=== PATIENT | male | born 1935 | race Caucasian/White ===

== ENCOUNTER 2017-09-03 16:47 | Emergency (ER) | payer MEDICARE, SELFPAY ==
[2017-09-03 16:47] VITALS: BP 112/71; PULSE 60; RESP 16; TEMP 36.5; O2SAT 96; BMI 28.5
--- NOTE | 2017-09-03 17:06 | ED.VISSUMM ---
- ER Visit Summary Date of Service: 09/03/17 Chief Complaint: Concern for low blood pressure History of Present Illness: The patient is a 81 M presenting for blood pressure check. Patient saw his horticultural therapist Dr. Meek yesterday. He was started on lisinopril 10 mg once a day. He had his first dose this morning. Before taking the medication his blood pressure was 169/96. Later in the afternoon patient told his that he was not feeling well. His checked his blood pressure again and it was 106/46. He denies dizziness or syncope. He denies chest pain or shortness of breath. He is feeling improved on arrival. Physical Examination: Vitals are stable. Blood pressure 112/71. patient is afebrile. Alert no acute distress. HEENT exam is unremarkable. Neck is supple. Lungs are clear and equal bilaterally. Heart is regular rate and rhythm. Abdomen is soft nontender nondistended. Extremities are unremarkable. Skin is warm and dry. No focal neurologic deficit. Remainder of exam is unremarkable. Emergency Department Course and Treatment: Patient was observed in the ED. He remained asymptomatic. Discussed with Dr. Meek. He recommends no lisinopril tomorrow, change the dose to 5 mg of lisinopril Thursday and Thursday and call the office on Thursday. He will monitor his blood pressure at home. Patient and family are agreeable with this plan. Disposition: Discharge home Impression: Hypertension This note was generated with [employer] dictation software. It may contain incorrect words, spelling, and punctuation that were not noted in review of the chart prior to signing ED Disposition - Plan for ED Patient: Disposition: Home or Assisted Living Chief Complaint: General Illness Instructions: What Is High Blood Pressure? Prescriptions: Lisinopril [Prinivil] 5 mg PO DAILY #30 tablet Referrals: Carlos Meek MD [STAFF PHYSICIAN] - Tim Yost MD [Primary Care Provider] -
--- NOTE | 2017-09-03 17:09 | ED.DCSUM_ITS ---
- ER Visit Summary Date of Service: 09/03/17 Chief Complaint: Concern for low blood pressure History of Present Illness: The patient is a 81 M presenting for blood pressure check. Patient saw his meat washer Dr. Meek yesterday. He was started on lisinopril 10 mg once a day. He had his first dose this morning. Before taking the medication his blood pressure was 169/96. Later in the afternoon patient told his that he was not feeling well. His checked his blood pressure again and it was 106/46. He denies dizziness or syncope. He denies chest pain or shortness of breath. He is feeling improved on arrival. Physical Examination: Vitals are stable. Blood pressure 112/71. patient is afebrile. Alert no acute distress. HEENT exam is unremarkable. Neck is supple. Lungs are clear and equal bilaterally. Heart is regular rate and rhythm. Abdomen is soft nontender nondistended. Extremities are unremarkable. Skin is warm and dry. No focal neurologic deficit. Remainder of exam is unremarkable. Emergency Department Course and Treatment: Patient was observed in the ED. He remained asymptomatic. Discussed with Dr. Meek. He recommends no lisinopril tomorrow, change the dose to 5 mg of lisinopril Thursday and Thursday and call the office on Thursday. He will monitor his blood pressure at home. Patient and family are agreeable with this plan. Disposition: Discharge home Impression: Hypertension This note was generated with [employer] dictation software. It may contain incorrect words, spelling, and punctuation that were not noted in review of the chart prior to signing ED Disposition - Plan for ED Patient: Disposition: Home or Assisted Living Chief Complaint: General Illness Instructions: What Is High Blood Pressure? Prescriptions: Lisinopril [Prinivil] 5 mg PO DAILY #30 tablet Referrals: Carlos Meek MD [STAFF PHYSICIAN] - Tim Yost MD [Primary Care Provider] -
--- NOTE | 2017-09-03 18:00 | ED.DEP ---
ED Disposition - Plan for ED Patient: Chief Complaint: General Illness Instructions: What Is High Blood Pressure? Prescriptions: Lisinopril [Prinivil] 5 mg PO DAILY #30 tablet Referrals: Tim Yost MD [Primary Care Provider] - Carlos Meek MD [STAFF PHYSICIAN] -
[2017-09-03 18:17] VITALS: BP 123/61; PULSE 47; RESP 16; O2SAT 95
== END 2017-09-03 18:41 | disposition home or self-care (01) ==
PROVIDERS: Emergency Provider Emergency Medicine; Family Provider Internal Medicine; PCP Internal Medicine
DX: I10 Essential (primary) hypertension (principal); Z79.899 Other long term (current) drug therapy
CPT/HCPCS: 99282

== ENCOUNTER 2019-12-21 05:28 | Day surgery (SDC) | payer MEDICARE, OTHER, SELFPAY ==
[2019-12-05 14:19] VITALS: BMI 28.5
[2019-12-21] VITALS (7 sets, daily range): BP systolic 108–128; BP diastolic 64–74; PULSE 58–78; RESP 16; TEMP 36.3–36.5; O2SAT 96–98; BMI 25.2
--- NOTE | 2019-12-21 05:30 | HP.PCM_ITS ---
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 Required: No Is patient in pain?: No Allergies No Known Allergies Allergy (Verified 09/03/17 16:50) Medications Celecoxib [Celebrex] 200 mg PO DAILY 09/03/17 [History Confirmed 12/05/19] Tamsulosin HCl [Flomax] 0.4 mg PO DAILY 09/03/17 [History Confirmed 12/05/19] allopurinol 300 mg tablet 300 mg PO DAILY 12/05/19 [History Confirmed 12/05/19] antiarthritic combination no.2 900 mg tablet mg PO 12/05/19 [History Confirmed 12/05/19] aspirin 81 mg tablet,delayed release 81 mg PO DAILY 12/05/19 [History Confirmed 12/05/19] calcium carbonate 500 mg calcium (1,250 mg) tablet 500 mg PO BID 12/05/19 [History Confirmed 12/05/19] cholecalciferol (vitamin D3) 25 mcg (1,000 unit) capsule 25 mcg PO DAILY 12/05/19 [History Confirmed 12/05/19] ipratropium bromide 42 mcg (0.06 %) nasal spray 2 spray INTRANASAL TID 12/05/19 [History Confirmed 12/05/19] lisinopril 10 mg tablet 20 mg PO DAILY tab 12/05/19 [History Confirmed 12/05/19] multivitamin 1 tab PO DAILY 12/05/19 [History Confirmed 12/05/19] omega-3 fatty acids 1,000 mg capsule 1,000 mg PO DAILY 12/05/19 [History Confirmed 12/05/19] tadalafil 20 mg tablet 20 mg PO DAILY PRN 12/05/19 [History Confirmed 12/05/19] [facility] Medical History (Updated 12/05/19 @ 14:[address] Twin Fragoso MD) History of prostate cancer (Acute) Weight loss (Acute) Diarrhea (Acute) Abdominal pain (Acute) BPH (benign prostatic hyperplasia) (Acute) History of back problems (Acute) History of colon polyps (Acute ~2002) History of prostate cancer (Acute) Hyperlipidemia (Acute) Internal hemorrhoids (Acute) Osteoarthritis (Acute) HTN (hypertension) (Chronic) Surgical History (Updated 12/05/19 @ 14:03 by Beatriz Deleon) History of cholecystectomy (Acute) History of colonoscopy (Acute ~2012) History of hemorrhoidectomy (Acute) History of left inguinal hernia repair (Acute) Family History (Updated 12/05/19 @ 14:04 by Beatriz Deleon) Brother Diabetes Cancer prostate Father Cancer prostate Mother Cancer cervical Sister Cancer ovarian Aunt Colon cancer Social History (Updated 12/05/19 @ 14:[address] Twin Fragoso MD) Smoking Status: Never smoker HPI HPI HPI: Parag ARMAS, is a 84 M who presents to the office today for a variety concerns. Apparently both he and his July 2019 became ill with severe fatigue. She had fever and shortness of breath. He had significant GI distress. He has never quite recovered. He had weight loss from 205 pounds down to 189 pounds. He has had diffuse abdominal pain. Cramping. He has not noticed any bright red blood. Is felt maybe that he was lactose intolerance was asked to stop but he just was tested a week ago and that is not the case. He will have diarrhea alternating sometimes with constipation. He has not noticed any bright red blood per rectum or melena. He has a sister had ovarian cancer and a mother uterine cancer in a grandfather and a father with prostate cancer. He himself also has had prostate cancer for which she had radiation treatment in 2011. He has had a very remote history of colon polyp dating back to 2004. His most recent colonoscopy was May 19, 2007. No acute findings at that time. The patient also complains of intermittent dizziness with movement. He has been evaluated by his primary care physician Dr. Yost in 2018 he had carotid duplex imaging which did not demonstrate hemodynamically significant disease. Laboratory as of November 08, 2019 demonstrates a white blood cell count of 5.8 with a hemoglobin slightly low at 12.6 hematocrit 39 platelet count 191,000. Albumin was 4.4. BUN 28 creatinine 1.09. GFR was greater than 60. He states that his weight loss is stabilized. 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 He denies any current fever he denies any current shortness of breath. He points to the source of his discomfort is sometimes being in the upper abdomen sometimes mid abdomen sometimes lower abdomen. The patient is referred for surgical consultation by Dr. Tim Yost and Sherrell Cerrato CNP and a written copy my surgical consult recommendations will be returned to them HPI HPI HPI: Parag ARMAS, is a 84 M who presents to the office today for ROS General General: Yes weight change; no appetite, fatigue, colon cancer, breast cancer or weakness HEENT HEENT: No difficulty swallowing, eye injury, eye surgery, swollen glands or hoarseness Endo Endocrine: No thyroid disease, diabetes mellitus, thyroid cancer, Hair loss, heat intolerance or cold intolerance Musc Musculoskeletal: Yes back problems and arthritis; no rheumatoid arthritis, gout or joint pain Cardio Cardiovascular: Yes high blood pressure; no murmur, pacemaker, heart disease, atrial fibrillation, heart attack, heart stent, palpitations, shortness of breat with exertion or chest pain Psych Psychiatric: No depression, anxiety or hearing voices Resp Respiratory: No shortness of breath, No sleep apnea, No cough, No COPD, No asthma, No emphysema, No wheezing Gastro Gastrointestinal: Yes abdominal pain, No nausea or vomiting, No diarrhea, No constipation, No blood in stool, No acid reflux, No hemorrhoids, No ulcers, No gallbladder problem, No black,tarry stools Neuro Neurologic: No weakness Exam Const General: cooperative, comfortable, no acute distress Nutritional Appearance: average body habitus Orientation: alert, awake Other: Abdominal exam demonstrates findings consistent with lax her skin consistent with weight loss HENMT Head: normal to inspection Chest Chest palpation & inspection: normal inspection of the chest Resp Effort & Inspection: normal respiratory effort Auscultation: clear to auscultation bilaterally Cardio Rate: regular rate Rhythm: regular rhythm Heart Sounds: no murmurs GI Palpation: soft, no hepatosplenomegaly Auscultation: normal bowel sounds Other: Well-healed left inguinal hernia repair from my previous procedure Skin Other: Lax abdominal skin, no rashes Neuro Cognition: normal cognition Extrem General: no calf tenderness Psych Affect: normal affect Assessment & Plan Problems 1. Generalized abdominal pain R10.84 2. Diarrhea, unspecified type R19.7 3. Weight loss R63.4 4. History of prostate cancer Z85.46 Plan I am unable to decipher potential etiology of the patient's symptom complex as noted above. I am recommending to him a combined esophagogastroduodenoscopy with possible biopsy and colonoscopy possible biopsy or polypectomy as indicated. The patient is well aware of the technique, benefit, risk of alternatives. No guarantees of success been offered. He is age 84. We will have him hold his fish oil and aspirin preprocedure. We will perform outpatient Covid-19 testing. He is aware that he is presenting during a Covid-19 pandemic. He is aware that the [facility] is currently reporting a low local incidence. Because of his age I anticipate performing this with monitored anesthesia care. Were needed biopsies looking for H. pylori or microcytic colitis will be pursued as well. I appreciate the opportunity of assisting with her surgical care Copy: Dr. Tim Yost and Sherrell Cerrato, GEE Fragoso M.D., F.A.C.S. Orders Orders: Colonoscopy Today R19.4 EGD Today Coding Level of Care Code 66359 Diagnoses Generalized abdominal pain R10.84 ??Abdominal location: generalized Diarrhea, unspecified type R19.7 ??Diarrhea type: unspecified type Weight loss R63.4 History of prostate cancer Z85.46 I have re-examined the patient. There are no clinical changes since date of exam. Procedure Criteria Procedure Type: Elective COVID Risk Discussion: The surgeon/proceduralist and patient have discussed in detail the risk of exposure to and/or potential harm posed by the COVID-19 virus with having a surgery/procedure at this time versus the risk of delaying the surgery/procedure. It is not possible to know either the risk of delaying the surgery or procedure or chance of getting an infection with perfect accuracy, but a joint decision was made between the patient and the surgeon/proceduralist to proceed at this time with the scheduled surgery/procedure as indicated on the consent form.
[2019-12-21] MEDS: Lactated Ringers 1,000 ML 75 ML IV (06:15)
--- NOTE | 2019-12-21 06:30 | EGD_PTH ---
PATIENT: CHACE ARMAS LOC: EN U#:[id number] AGE/SX: 84/M ROOM: RE12/21/[address]: Dr. Twin Fragoso MD : 1935 BED: DIS: 12/21/2019 SPEC #: [id number] RECD: 12/21/19 10:40 STATUS: MANUELA JADE #: [id number] DORINDA: 12/21/19 06:[address]: Twin Fragoso DEPT: SURGICAL PATHOLOGY RECD BY: Jignesh Gutiérrez ENTERED: 12/21/19 11:51 SP TYPE: EGD BIOPSY OT DR: Dr. Tim Yost MD Tissues: A - Duodenum, NOS B - Gastric mucous membrane C - Esophageal mucous membrane D - Esophageal mucous membrane E - COLON BIOPSY Procedures: Surgery Specimen Level IV HEADER OPERATION: Colonoscopy, EGD ([facility]) PRE-OP DIAGNOSIS: Abdomen pain; diarrhea, weight loss TISSUE SUBMITTED: A - Duodenum biopsy, B - Antrum biopsy for histo and H. pylori, C - Distal esophagus biopsy, D - Mid esophagus biopsy, E - Random colonic biopsy MICROSCOPIC DIAGNOSIS A. Duodenum, biopsy: A fragment of duodenal mucosa with mild nonspecific chronic inflammation, congestion and hemorrhage. B. Antrum, biopsy: Minimal gastritis and congestion. See microscopic description and comment. C. Distal esophagus, biopsy: Fragments of squamous epithelium with focal mild chronic inflammation and congestion. D. Mid esophagus, biopsy: Fragments of squamous epithelium with focal minimal congestion. E. Colon, random biopsy: Fragments of colonic mucosa with focal hyperplastic polyp changes. SJ:ethel 12/22/19 COMMENT B. The results of immunohistochemistry for Helicobacter pylori will be reported separately ([id number]). MICROSCOPIC DESCRIPTION Slides are reviewed. B. The specimen shows fragments of gastric mucosa with chronic inflammatory cell infiltrates in the lamina propria consisting of lymphocytes and plasma cells, consistent with minimal chronic gastritis. Focal mucosal congestion is also noted. GROSS DESCRIPTION A - Received in fixative is one container labeled with the patient's name and designated duodenum biopsy. The specimen consists of one irregular fragment of light griffin soft tissue that measures 0.3 x 0.3 x 0.1 cm. The specimen is totally submitted in one cassette. B - Received in fixative is one container labeled with the patient's name and designated antrum biopsy. The specimen consists of one irregular fragment of light griffin soft tissue that measures 0.3 x 0.3 x 0.1 cm. The specimen is totally submitted in one cassette. C - Received in fixative is one container labeled with the patient's name and designated distal esophagus biopsy. The specimen consists of multiple irregular fragments of light griffin soft tissue that in aggregate measure 0.7 x 0.7 x 0.1 cm. The specimen is totally submitted in one cassette. D - Received in fixative is one container labeled with the patient's name and designated mid esophagus biopsy. The specimen consists of two irregular fragments of light griffin soft tissue that in aggregate measure 0.4 x 0.2 x 0.1 cm. The specimen is totally submitted in one cassette. E - Received in fixative is one container labeled with the patient's name and designated random colonic biopsy. The specimen consists of multiple irregular fragments of light griffin soft tissue that in aggregate measure 1.8 x 0.6 x 0.1 cm. The specimen is totally submitted in one cassette. / SJ:rg 12/21/19 TC:3 CPT: 80415 x5
--- NOTE | 2019-12-21 06:30 | IMM_PTH ---
PATIENT: CHACE ARMAS LOC: EN U#:[id number] AGE/SX: 84/M ROOM: RE12/21/[address]: Dr. Twin Fragoso MD : 1935 BED: DIS: 12/21/2019 SPEC #: [id number] RECD: 12/21/19 12:25 STATUS: MANUELA REFior #: [id number] DORINDA: 12/21/19 06:[address]: Twin Fragoso DEPT: IMMUNOHISTOCHEMISTRY RECD BY: Kamini Pitt ENTERED: 12/21/19 12:25 SP TYPE: IMMUNO OTHR DR: Dr. Tim Yost MD Tissues: B - Stomach, NOS Procedures: H Pylori (initial) PHYSICIAN & INSTITUTION [place] [id number] SPECIMEN INFORMATION: Tissue Source: B - Antrum biopsy Clinical Info: Abdomen pain, diarrhea, weight loss Specimen Number: [id number] CPT code: 59062 METHODOLOGY: Deparaffinized sections of prefer/formalin-fixed tissue or PAP/DQ stained slides are incubated with monoclonal/polyclonal antibodies/oligonucleotide probes. Localization is made via biotin free immunoperoxidase method. Appropriate controls are performed and reacted as expected. Results on target cell population are indicated in the following table: RESULTS: ANTIBODY / CLONE RESULT Block B H Pylori (polyclonal) negative These tests were developed and their performance characteristics determined by [facility]. They may not have been cleared or approved by the U.S. Food and Drug Administration. The FDA has determined that such clearance or approval is not necessary. INTERPRETATION: B. Antrum biopsy: Negative for Helicobacter pylori organisms. SJ:ethel 12/22/19
--- NOTE | 2019-12-21 07:06 | OP.EGD_ITS ---
Patient Name: Jens Cai Procedure Date: 12/21/2019 6:09 AM Date of : 1935 Age: 84 Procedure: Upper GI endoscopy Indications: Generalized abdominal pain Providers: Twin Fragoso MD Referring MD: Tim Yost Medicines: See the Anesthesia note for documentation of the administered medications Complications: No immediate complications. Procedure: Pre-Anesthesia Assessment: - Prior to the procedure, a History and Physical was performed, and patient medications and allergies were reviewed. The patient's tolerance of previous anesthesia was also reviewed. The risks and benefits of the procedure and the sedation options and risks were discussed with the patient. All questions were answered, and informed consent was obtained. Prior Anticoagulants: The patient has taken no previous anticoagulant or antiplatelet agents. ASA Grade Assessment: II - A patient with mild systemic disease. After reviewing the risks and benefits, the patient was deemed in satisfactory condition to undergo the procedure. After obtaining informed consent, the endoscope was passed under direct vision. Throughout the procedure, the patient's blood pressure, pulse, and oxygen saturations were monitored continuously. The gastroscope was introduced through the mouth, and advanced to the second part of duodenum. The upper GI endoscopy was accomplished without difficulty. The patient tolerated the procedure well. Scope In: 6:31:27 AM Scope Out: 6:37:02 AM Total Procedure Duration Time 0 hours 5 minutes 35 seconds Findings: LA Grade A (one or more mucosal breaks less than 5 mm, not extending between tops of 2 mucosal folds) esophagitis with no bleeding was found 40 cm from the incisors. Biopsies were taken with a cold forceps for histology. The mid esophagus was normal. Biopsies were taken with a cold forceps for histology. A small hiatal hernia was present. Diffuse mildly erythematous mucosa without bleeding was found in the gastric antrum. Biopsies were taken with a cold forceps for histology. Diffuse mildly erythematous mucosa without active bleeding and with no stigmata of bleeding was found in the duodenal bulb. Biopsies were taken with a cold forceps for histology. Impression: - LA Grade A reflux esophagitis. Biopsied. - Normal mid esophagus. Biopsied. - Small hiatal hernia. - Erythematous mucosa in the antrum. Biopsied. - Erythematous duodenopathy. Biopsied. Recommendation: - Discharge patient to home. - Resume previous diet. - Continue present medications. - Use Pepcid (famotidine) 20 mg PO BID. - Telephone my office for pathology results in 1 week. Procedure Code(s): --- Professional --- 19296, Esophagogastroduodenoscopy, flexible, transoral; with biopsy, single or multiple Diagnosis Code(s): --- Professional --- K21.0, Gastro-esophageal reflux disease with esophagitis K44.9, Diaphragmatic hernia without obstruction or gangrene K31.89, Other diseases of stomach and duodenum R10.84, Generalized abdominal pain CPT copyright 2017 [employer]. All rights reserved. The codes documented in this report are preliminary and upon senior accounting manager review may be revised to meet current compliance requirements. Twin Fragoso MD 12/21/2019 7:05:14 AM This report has been signed electronically. Number of Addenda: 0 Note Initiated On: 12/21/2019 6:09 AM
--- NOTE | 2019-12-21 07:06 | OP.CCLET_ITS ---
12/21/2019 Tim Yost [address] [place] [address] Re : Upper GI endoscopy procedure for Jens Cai Dear Dr. Yost This procedure was performed on Saturday, December 21, 2019. My impressions and recommendations are as follows: Impressions : - LA Grade A reflux esophagitis. Biopsied. - Normal mid esophagus. Biopsied. - Small hiatal hernia. - Erythematous mucosa in the antrum. Biopsied. - Erythematous duodenopathy. Biopsied. Recommendations : - Discharge patient to home. - Resume previous diet. - Continue present medications. - Use Pepcid (famotidine) 20 mg PO BID. - Telephone my office for pathology results in 1 week. My findings are described in the full procedure note, which is enclosed. If I can be of further assistance, please feel free to contact me at Doctor phone number(s): Work: . Sincerely, Twin Fragoso MD 12/21/2019 7:05:14 AM This report has been signed electronically.
--- NOTE | 2019-12-21 07:08 | OP.CCLET_ITS ---
12/21/2019 Tim Yost [address] [place] [address] Re : Colonoscopy procedure for Jens Cai Dear Dr. Yost This procedure was performed on Saturday, December 21, 2019. My impressions and recommendations are as follows: Impressions : - Hemorrhoids found on perianal exam. Lax anal tone - Tortuous colon. - The entire examined colon is normal. Biopsied. Recommendations : - Discharge patient to home. - Resume previous diet. - Continue present medications. - Repeat colonoscopy is not recommended due to current age (66 years or older) for screening purposes. - Telephone my office for pathology results in 1 week. My findings are described in the full procedure note, which is enclosed. If I can be of further assistance, please feel free to contact me at Doctor phone number(s): Work: . Sincerely, Twin Fragoso MD 12/21/2019 7:07:45 AM This report has been signed electronically.
--- NOTE | 2019-12-21 07:08 | OP.COLON_ITS ---
Patient Name: Jens Cai Procedure Date: 12/21/2019 6:37 AM Date of : 1935 Age: 84 Procedure: Colonoscopy Indications: Clinically significant diarrhea of unexplained origin Providers: Twin Fragoso MD Referring MD: Tim Yost Medicines: See the Anesthesia note for documentation of the administered medications Patient Profile: Last Colonoscopy: 2007. Complications: No immediate complications. Procedure: Pre-Anesthesia Assessment: - Prior to the procedure, a History and Physical was performed, and patient medications and allergies were reviewed. The patient's tolerance of previous anesthesia was also reviewed. The risks and benefits of the procedure and the sedation options and risks were discussed with the patient. All questions were answered, and informed consent was obtained. Prior Anticoagulants: The patient has taken no previous anticoagulant or antiplatelet agents. ASA Grade Assessment: II - A patient with mild systemic disease. After reviewing the risks and benefits, the patient was deemed in satisfactory condition to undergo the procedure. After I obtained informed consent, the scope was passed under direct vision. Throughout the procedure, the patient's blood pressure, pulse, and oxygen saturations were monitored continuously. The colonoscope was introduced through the anus and advanced to the cecum, identified by appendiceal orifice and ileocecal valve. The colonoscopy was performed without difficulty. The patient tolerated the procedure well. The quality of the bowel preparation was good. The ileocecal valve and the appendiceal orifice were photographed. Scope In: 6:39:20 AM Scope Withdrawal Time 0 hours 9 minutes 55 seconds Scope Out: 6:56:37 AM Total Procedure Duration Time 0 hours 17 minutes 17 seconds Findings: Hemorrhoids were found on perianal exam. The left colon was moderately tortuous. The colon (entire examined portion) appeared normal. Biopsies for histology were taken with a cold forceps from the entire colon for evaluation of microscopic colitis. Impression: - Hemorrhoids found on perianal exam. Lax anal tone - Tortuous colon. - The entire examined colon is normal. Biopsied. Recommendation: - Discharge patient to home. - Resume previous diet. - Continue present medications. - Repeat colonoscopy is not recommended due to current age (66 years or older) for screening purposes. - Telephone my office for pathology results in 1 week. Procedure Code(s): --- Professional --- 52027, Colonoscopy, flexible; with biopsy, single or multiple Diagnosis Code(s): --- Professional --- K64.9, Unspecified hemorrhoids R19.7, Diarrhea, unspecified Q43.8, Other specified congenital malformations of intestine CPT copyright 2017 [employer]. All rights reserved. The codes documented in this report are preliminary and upon plate keeper review may be revised to meet current compliance requirements. Twin Fragoso MD 12/21/2019 7:07:45 AM This report has been signed electronically. Number of Addenda: 0 Note Initiated On: 12/21/2019 6:37 AM
== END 2019-12-21 07:55 | disposition home or self-care (01) ==
LOC: EN 05:28 → AC 05:28
PROVIDERS: Anesthesiology; PCP Internal Medicine; Referring Provider Internal Medicine; Visit Provider Surgery
PROC: 0DJD8ZZ Inspection of Lower Intestinal Tract, Via Natural or Artificial Opening Endoscopic (ICD-10-PCS; CPT 45378; principal; 2019-12-21 06:25)
DX: K21.0 Gastro-esophageal reflux disease with esophagitis (principal); K44.9 Diaphragmatic hernia without obstruction or gangrene; K64.8 Other hemorrhoids; Z11.59 Encounter for screening for other viral diseases; R63.4 Abnormal weight loss; I10 Essential (primary) hypertension; E78.5 Hyperlipidemia, unspecified; M19.90 Unspecified osteoarthritis, unspecified site; Z79.1 Long term (current) use of non-steroidal anti-inflammatories (NSAID); Z79.82 Long term (current) use of aspirin; Z79.899 Other long term (current) drug therapy; Z87.19 Personal history of other diseases of the digestive system; Z85.46 Personal history of malignant neoplasm of prostate; Z92.3 Personal history of irradiation; Q43.8 Other specified congenital malformations of intestine
CPT/HCPCS: 43239; 45380; 87635; 88305; 88342; 94799; J7120; J2405; U0003

== ENCOUNTER 2020-05-25 11:32 | Outpatient (RCR) | payer MEDICARE, OTHER, SELFPAY ==
[2019-12-21 05:44] VITALS: BMI 25.2
== END 2020-05-25 23:59 ==
LOC: IMMUN 11:32
PROVIDERS: PCP Internal Medicine; Visit Provider Family Medicine
DX: Z23 Encounter for immunization (principal)
CPT/HCPCS: 0011A; 0012A; 91301

== ENCOUNTER → 2021-04-09 14:16 | Outpatient (CLI) | payer MEDICARE, OTHER, SELFPAY ==
--- NOTE | 2021-04-09 14:23 | BI_ITS ---
MAMMOGRAPHY - BILATERAL DIAGNOSTIC REASON FOR EXAM: Male, 85 years old. Left breast mass. Patient has a history of prostate cancer with hormonal treatment. PERTINENT HISTORY: Non-contributory. TECHNIQUE: Digital bilateral breast pam (3D mammographic acquisition) in the CC and MLO projections. 2-D mediolateral oblique (MLO) and craniocaudad (CC) views of both breasts were obtained. CAD: Full Field Digital Mammography with Computer Added Detection was performed. COMPARISON: None. Baseline examination. FINDINGS: Breast Composition: Asymmetrical fibroglandular tissue in the left retroareolar region. There are no dominant masses or suspicious calcifications. No other significant abnormalities are identified. BI/DIAG MAMM W/CAD, BILAT IMPRESSION: Asymmetrical fibroglandular tissue in the left retroareolar region. Correlation with ultrasound is recommended. ASSESSMENT CATEGORY: BIRADS Category 0: Incomplete. Need additional imaging evaluation. A letter regarding these results will be sent to the patient by the facility within 30 days. Approximately 10% of breast cancers are not detected by mammography. A normal mammogram should not delay biopsy of a clinically suspicious abnormality. Electronically Signed: Mckay Winn MD at 8:25 EST , Service support ,
--- NOTE | 2021-04-09 14:23 | US_ITS ---
STUDY: ULTRASOUND BREAST - LEFT REASON FOR EXAM: Male, 85 years old. Palpable lump left breast. TECHNIQUE: Axial and longitudinal images of the LEFT breast were performed with a high resolution ultrasound transducer. # OF IMAGES: 17 COMPARISON: Comparison is made with prior mammogram FINDINGS: LEFT Breast: There is a 1.3 cm x 1.1 cm x 0.4 cm well-defined hypoechoic solid nodule in the retroareolar region of the left breast. This corresponds to the palpable abnormality. A biopsy is recommended. There is increased vascularity in this nodule. US/Breast Limited Unilateral IMPRESSION: The palpable abnormality corresponds to a 1.3 cm x 1.1 cm x 0.4 cm well-defined hypoechoic solid nodule. Increased vascularity is seen. A biopsy is recommended. ASSESSMENT CATEGORY: BIRADS Category 4: Suspicious - Biopsy Should Be Considered. A letter regarding these results will be sent to the patient by the facility within 30 days. Electronically Signed: Mckay Winn MD at 10:09 EST , Service support ,
== END ==
PROVIDERS: PCP Internal Medicine; Visit Provider Internal Medicine
DX: N63.20 Unspecified lump in the left breast, unspecified quadrant (principal); N60.22 Fibroadenosis of left breast
CPT/HCPCS: 76642; 77062; 77066; G0279

== ENCOUNTER → 2021-04-15 | Outpatient (CLI) | payer MEDICARE, OTHER, SELFPAY ==
--- NOTE | 2021-04-15 | BRBX_PTH ---
PATIENT: CHACE ARMAS LOC: [facility] U#:[id number] AGE/SX: 85/M ROOM: RE04/15/[address]: Dr. Twin Fragoso MD : 1935 BED: DIS: 04/15/2021 SPEC #: [id number] RECD: 04/15/21 16:13 STATUS: MANUELA REFior #: [id number] DORINDA: 04/15/21 00:[address]: Twin Fragoso DEPT: SURGICAL PATHOLOGY RECD BY: Ghulam Dougherty ENTERED: 04/16/21 10:20 SP TYPE: BREAST BX OTHR DR: Dr. Tim Yost MD Tissues: Left breast, NOS Procedures: Surgery Specimen Level IV HEADER OPERATION: Left breast biopsy PRE-OP DIAGNOSIS: Left breast mass TISSUE SUBMITTED: Left breast tissue MICROSCOPIC DIAGNOSIS Left breast mass, core biopsy: Consistent with gynecomastia. AM:ethel 04/17/2021 MICROSCOPIC DESCRIPTION Slides are reviewed. GROSS DESCRIPTION Received in fixative is one container labeled with the patient's name and designated left breast. The specimen consists of three cores of light griffin soft tissue. Each core has an average length of 1.5 cm and average diameter of 0.2 cm. The specimen is submitted in its entirety in one cassette. / AM:ethel 04/16/21 TC:5 CPT: 14193
== END | disposition home or self-care (01) ==
LOC: LABSPEC 16:36
PROVIDERS: PCP Internal Medicine; Referring Provider Surgery; Visit Provider Surgery
DX: N63.20 Unspecified lump in the left breast, unspecified quadrant (principal)
CPT/HCPCS: 88305

== ENCOUNTER 2022-11-27 12:14 | Inpatient (IN) | payer MEDICARE, OTHER, SELFPAY ==
[2022-11-27 12:15] VITALS: BP 124/71; PULSE 73; RESP 18; TEMP 36.4; O2SAT 97; BMI 25.9
--- NOTE | 2022-11-27 13:03 | CT_ITS ---
STUDY: CT ABDOMEN AND PELVIS WITH CONTRAST REASON FOR EXAM: Male, 87 years old. Generalized abdominal pain, diarrhea, vomiting RADIATION DOSAGE (If Supplied By Facility): CTDIvol = ( 15.00 ) mGy, DLP = ( 1121.73 ) mGycm TECHNIQUE: Transaxial images were obtained from the dome of the diaphragm to the symphysis pubis without oral contrast. IV 100mL Isovue-300 was administered. Sagittal and coronal images were reconstructed. Individualized dose optimization techniques were used for this CT. COMPARISON: None. FINDINGS: Minimal increased markings at the right lung base suggestive of scarring. Coronary artery calcification. Normal liver. The patient is status post cholecystectomy. Normal spleen. Normal pancreas. Normal bilateral adrenal glands. Normal right kidney. Normal left kidney. There is a small hiatal hernia. Fluid-filled small bowel loops with distention down to the level of the mid ileum. Early small bowel obstruction should be ruled out. Normal colon. The appendix is visualized and appears normal. There is diffuse atherosclerotic calcification of the abdominal aorta, without a demonstrated aneurysm. Normal inferior vena cava. Normal retroperitoneum. Mild degree of diffuse bladder wall thickening. Free fluid is seen in the pelvis. Prostatic enlargement with indentation at the bladder base. The prostate measures 4.7 cm x 5 cm. This causes indentation of the bladder base. There is a left-sided inguinal hernia containing adipose tissue. Prior left inguinal hernia repair. There are diffuse degenerative changes of the visualized lumbar spine. CT/Abdomen/Pelvis W IV Cont ONLY IMPRESSION: Findings suggestive of early small bowel obstruction down to the mid ileal level. Fluid is seen in the pelvis. Status post cholecystectomy. Small residual left inguinal hernia containing fat. The patient is status post left inguinal hernia repair. Electronically Signed: Mckay Winn MD at 14:33 EDT ,
--- NOTE | 2022-11-27 13:06 | EX.ED.DYSGE1 ---
HPI <SCOTT Pena - Last Filed: 11/27/22 20:39> History of Present Illness Chief Complaint: Diarrhea Narrative Narrative: Patient presenting today due to generalized abdominal pain, vomiting, and diarrhea that started last night. He reports that he had about 5 episodes of loose stool and 5 episodes of vomiting last night. He had a similar episode 1 week ago that lasted 1 day and got better, he followed a brat diet for the remainder of the week until 2 days ago when he began eating normal foods again. He has not had any diarrhea throughout the week and reports he has been having normal bowel movements up until last night. No fever, chills, urinary symptoms, recent travel, exposures to C. difficile, or recent antibiotic use. Prior abdominal surgery includes cholecystectomy. PMH includes hypertension and history of prostate cancer. PFSH <SCOTT Pena - Last Filed: 11/27/22 20:39> [facility] Medical History (Updated 11/27/22 @ 21:[address] Luke Alcala MD) Abdominal pain BPH (benign prostatic hyperplasia) Diarrhea History of back problems History of colon polyps (~2002) History of prostate cancer History of prostate cancer HTN (hypertension) Hyperlipidemia Internal hemorrhoids Osteoarthritis SBO (small bowel obstruction) Weight loss Home Medications celecoxib 200 mg capsule 200 mg PO DAILY pain 09/03/17 [History Last Taken 11/26/22] tamsulosin 0.4 mg capsule 0.4 mg PO DAILY prostate 09/03/17 [History Last Taken 11/26/22] allopurinol 300 mg tablet 300 mg PO DAILY pain 12/05/19 [History Last Taken 11/26/22] aspirin 81 mg tablet,delayed release 81 mg PO DAILY heart health 12/05/19 [History Last Taken 11/26/22] calcium carbonate 500 mg calcium (1,250 mg) tablet 500 mg PO DAILY supplement 12/05/19 [History Last Taken 11/26/22] lisinopril 10 mg tablet 20 mg PO DAILY hypertension 12/05/19 [History Last Taken 11/26/22] multivitamin 1 tab PO DAILY supplement 12/05/19 [History Last Taken 11/26/22] omega-3 fatty acids 1,000 mg capsule (Fish Oil Concentrate) 1,000 mg PO DAILY supplement 12/05/19 [History Last Taken 11/26/22] tadalafil 20 mg tablet 20 mg PO DAILY PRN ed 12/05/19 [History Last Taken Unknown] acetaminophen 500 mg tablet 500 - 1,000 mg PO Q6H PRN PRN Pain Or Fever 12/14/19 [History Last Taken Unknown] famotidine 20 mg tablet 20 mg PO DAILY PRN as needed for stomach pain 04/15/21 [History Last Taken 11/26/22] finasteride 5 mg tablet (Proscar) 5 mg PO DAILY prostate 04/15/21 [History Last Taken Unknown] glucosamine 750 mg-chondroit 100 mg-msm-D3 25 kfe-hhgu-mnw bor tablet 1 tab PO DAILY supplement 04/15/21 [History Last Taken 11/26/22] shdagslehf-kmudzzijw-rdfatjl 30 mg-1 mg-20 mcg/mL intracavernosal soln 1 ml intra-cavernosal DAILY PRN nasal congestion 04/15/21 [History Last Taken Unknown] Allergy/AdvReac Type Severity Reaction Status Date / Time No Known Allergies Allergy Verified 11/27/22 12:16 Family History Brother Diabetes Cancer prostate Father Cancer prostate Mother Cancer cervical Sister Cancer ovarian Aunt Colon cancer Surgical History History of cholecystectomy History of colonoscopy (~2012) History of hemorrhoidectomy History of left inguinal hernia repair Social History Smoking Status: Never smoker ROS <SCOTT Pena - Last Filed: 11/27/22 20:39> ROS ED Constitutional Constitutional ED: Denies chills or fever(s) Cardiovascular Cardiovascular: Denies chest pain Respiratory/Chest Respiratory/Chest: Denies cough or dyspnea Gastrointestinal Gastrointestinal: Reports abdominal pain, diarrhea, nausea and vomiting; Denies constipation Genitourinary Genitourinary ED: Denies dysuria, hematuria or urinary urgency Musculoskeletal Musculoskeletal: Denies arthralgias or myalgias Integumentary Denies rash Neurologic Neurologic: Denies weakness EXAM <SCOTT Pena - Last Filed: 11/27/22 20:39> Physical Exam Const Vital Signs: 11/27/22 12:15 Temperature 97.5 F L Temperature Source Temporal Pulse Rate 73 Respiratory Rate 18 Blood Pressure 124/71 H Blood Pressure Mean 88 Pulse Ox 97 Oxygen Delivery Method Room Air Positive well nourished, well developed and no apparent distress General Appearance ED: well developed HEENT Reports normocephalic and head/scalp atraumatic Mouth ED: Yes moist mucous membranes normal Eyes PERRL and EOMs intact bilaterally Neck full ROM and supple Chest Wall inspection of chest normal Resp normal respiratory effort and clear to auscultation bilaterally Cardio regular rate and regular rhythm GI soft to palpation, non-distended and no masses GI Narrative: Mild generalized abdominal pain to palpation. No rigidity or guarding or rebound tenderness. Back/Spine normal ROM and normal to inspection Extremity normal to inspection and full ROM Neuro oriented x3, CN's II-XII intact bilaterally, moves all extremities, no focal motor deficits and no sensory deficits noted Sensorium / Orientation: awake and alert Psych mental status grossly normal and thought process normal Skin no rashes or lesions noted and no wounds <Dr. Luke Alcala MD - Last Filed: 11/27/22 21:27> Physical Exam Const Vital Signs: 11/27/22 12:15 Temperature 97.5 F L Temperature Source Temporal Pulse Rate 73 Respiratory Rate 18 Blood Pressure 124/71 H Blood Pressure Mean 88 Pulse Ox 97 Oxygen Delivery Method Room Air MDM <SCOTT Pena - Last Filed: 11/27/22 20:39> [facility] Narrative Medical decision making narrative: Patient presenting today due to nausea, vomiting, diarrhea, and abdominal pain that started last night. Several episodes of vomiting and loose stool throughout the night and had a similar episode 1 week ago that did resolve. This does not sound like C. difficile as patient did not have any diarrhea throughout the week, no recent exposures or antibiotics. He is well-appearing and in no acute distress, vitals are unremarkable. He reports very mild abdominal pain here. Labs to be obtained to rule out leukocytosis, anemia, electrolyte, JCARLOS. He will be given IV fluids and Zofran. CT scan of the abdomen and pelvis to be obtained to rule out diverticulitis, colitis, appendicitis, and bowel obstruction. CT scan does show evidence of early bowel obstruction. We will hold off on an NG tube at this time. I did speak with the hospitalist and patient will be admitted in stable condition for further treatment, general surgery was also consulted. He is comfortable with plan. Lab Data Attestation: I reviewed the patient's lab results. Labs: Laboratory Results - last 24 hr 11/27/22 11/27/22 13:10 13:15 WBC 8.3 RBC 4.23 L Hgb 12.5 L Hct 37.5 L MCV 88.7 MCH 29.6 MCHC 33.3 RDW Std Deviation 45.1 H RDW Coeff of Dayan 14.0 Plt Count 198 MPV 10.0 Immature Gran % (Auto) 0.200 Neut % (Auto) 82.0 H Lymph % (Auto) 9.5 L [place] % (Auto) 8.2 Eos % (Auto) 0.0 Baso % (Auto) 0.1 Absolute Neuts (auto) 6.8 Absolute Lymphs (auto) 0.79 L Nucleated RBC % 0 Sodium 138 Potassium 4.8 Chloride 107 Carbon Dioxide 25.0 Anion Gap 6 BUN 26 H Creatinine 1.28 Estim Creat Clear Calc 44.63 Est GFR (MDRD) Af Amer 68 Est GFR (MDRD) Non-Af 57 L BUN/Creatinine Ratio 20.3 H Glucose 131 H Calcium 10.0 Total Bilirubin 1.10 H AST 25 ALT 26 Alkaline Phosphatase 77 Total Protein 6.6 Albumin 3.4 Globulin 3.2 Albumin/Globulin Ratio 1.1 Lipase 34 Urine Color Yellow Urine Clarity Clear Urine pH 5.0 Ur Specific [place] 1.025 Urine Protein 15 H Urine Glucose (UA) Normal Urine Ketones Negative Urine Occult Blood Negative Urine Nitrite Negative Urine Bilirubin 1 H Urine Urobilinogen 1 H Ur Leukocyte Esterase Negative Urine RBC 0 SEEN Urine WBC 0 SEEN Ur Squamous Epith Cells 0 SEEN Urine Bacteria 0 SEEN Urine Mucus 0 SEEN Radiography Diagnostic Testing: Clinical Impression(s) from Imaging Studies Abdomen/Pelvis CT 11/27/22 13:03 IMPRESSION: Findings suggestive of early small bowel obstruction down to the mid ileal level. Fluid is seen in the pelvis. Status post cholecystectomy. Small residual left inguinal hernia containing fat. The patient is status post left inguinal hernia repair. Electronically Signed: Mckay Winn MD at 14:33 EDT , <Dr. Luke Alcala MD - Last Filed: 11/27/22 21:27> [facility] Narrative Medical decision making narrative: Patient presenting today due to nausea, vomiting, diarrhea, and abdominal pain that started last night. Several episodes of vomiting and loose stool throughout the night and had a similar episode 1 week ago that did resolve. This does not sound like C. difficile as patient did not have any diarrhea throughout the week, no recent exposures or antibiotics. He is well-appearing and in no acute distress, vitals are unremarkable. He reports very mild abdominal pain here. Labs to be obtained to rule out leukocytosis, anemia, electrolyte, JCARLOS. He will be given IV fluids and Zofran. CT scan of the abdomen and pelvis to be obtained to rule out diverticulitis, colitis, appendicitis, and bowel obstruction. CT scan does show evidence of early bowel obstruction. We will hold off on an NG tube at this time. I did speak with the hospitalist and patient will be admitted in stable condition for further treatment, general surgery was also consulted. He is comfortable with plan. I have personally performed a face to face assessment of the patient and have reviewed the HEATHER Note. I performed a substantive portion of the visit including all aspects of the following. My arriaga findings include: History is remarkable for nausea and vomiting 1 week ago. He developed nausea and vomiting last evening. He had diarrhea this morning. He presents with abdominal pain and distention. He has had prior bowel obstructions. He denies fever, chills night sweats. He states his made him come to the emergency department. He does endorse decreased urine output, thirst and dry mouth. He denies orthostatic symptoms. He denies fever, chills night sweats. He denies dysuria, frequency or urgency. Exam is remarkable for distended tympanitic abdomen with mild tenderness. HEENT exams Micrell dry mucosa. Lungs are clear to auscultation. Heart is regular. Rate is normal. Patient does not appear pale. He is alert oriented x3. Medical Decision Making BMP was obtained to assess electrolytes, and renal function. CBC to assess white count and H&H. CT was obtained since he is elderly with abdominal pain prior history of obstruction. Other additions or changes: CT is consistent with an early bowel obstruction which is unusual in light of the fact that he reported diarrhea. Patient was admitted to the hospitalist with consult to surgery. NG was placed. Lab Data Labs: Laboratory Results - last 24 hr 11/27/22 11/27/22 13:10 13:15 WBC 8.3 RBC 4.23 L Hgb 12.5 L Hct 37.5 L MCV 88.7 MCH 29.6 MCHC 33.3 RDW Std Deviation 45.1 H RDW Coeff of Dayan 14.0 Plt Count 198 MPV 10.0 Immature Gran % (Auto) 0.200 Neut % (Auto) 82.0 H Lymph % (Auto) 9.5 L [place] % (Auto) 8.2 Eos % (Auto) 0.0 Baso % (Auto) 0.1 Absolute Neuts (auto) 6.8 Absolute Lymphs (auto) 0.79 L Nucleated RBC % 0 Sodium 138 Potassium 4.8 Chloride 107 Carbon Dioxide 25.0 Anion Gap 6 BUN 26 H Creatinine 1.28 Estim Creat Clear Calc 44.63 Est GFR (MDRD) Af Amer 68 Est GFR (MDRD) Non-Af 57 L BUN/Creatinine Ratio 20.3 H Glucose 131 H Calcium 10.0 Total Bilirubin 1.10 H AST 25 ALT 26 Alkaline Phosphatase 77 Total Protein 6.6 Albumin 3.4 Globulin 3.2 Albumin/Globulin Ratio 1.1 Lipase 34 Urine Color Yellow Urine Clarity Clear Urine pH 5.0 Ur Specific [place] 1.025 Urine Protein 15 H Urine Glucose (UA) Normal Urine Ketones Negative Urine Occult Blood Negative Urine Nitrite Negative Urine Bilirubin 1 H Urine Urobilinogen 1 H Ur Leukocyte Esterase Negative Urine RBC 0 SEEN Urine WBC 0 SEEN Ur Squamous Epith Cells 0 SEEN Urine Bacteria 0 SEEN Urine Mucus 0 SEEN Radiography Diagnostic Testing: Clinical Impression(s) from Imaging Studies Abdomen/Pelvis CT 11/27/22 13:03 IMPRESSION: Findings suggestive of early small bowel obstruction down to the mid ileal level. Fluid is seen in the pelvis. Status post cholecystectomy. Small residual left inguinal hernia containing fat. The patient is status post left inguinal hernia repair. Electronically Signed: Mckay Winn MD at 14:33 EDT , Discharge Plan Dx/Rx/DC Orders Clinical Impression: SBO (small bowel obstruction), History of prostate cancer, Nausea, vomiting and diarrhea Disposition Disposition: Acute Care Hospital [facility]
[2022-11-27] MEDS: Ondansetron 4 MG/2 ML Vial IV (13:18)
[2022-11-27] MEDS: 0.9% Normal Saline 1,000 ML 1000 ML IV (13:18)
[2022-11-27 13:32] LABS: Bacteria 0 SEEN /hpf (None Seen); Mucous, Urine 0 SEEN /hpf (<or=2+); Red Blood Cells-Urine 0 SEEN /hpf (0-5); Squamous Epithelial Cells - UA 0 SEEN /hpf (0-5); White Blood Cells 0 SEEN /hpf (0-5)
[2022-11-27 13:34] LABS: Absolute Lymphocyte Count 0.79 X10^3/uL (0.83-4.51); Absolute Neutrophil Count 6.8 X10^3/uL (2.0-7.7); Basophil# 0.01 X10^3/uL; Basophil% 0.1 % (0-1); Hematocrit 37.5 % (40-54); Hemoglobin 12.5 g/dL (13.0-16.5); Lymphocyte # 0.79 X10^3/ul (0.83-4.51); Lymphocyte % 9.5 % (19-41); Mean Corp Hgb Conc 33.3 g/dL (32-36); Mean Corpuscular Hgb 29.6 pg (27.0-32.0); Mean Corpuscular Volume 88.7 fL (80-94); Monocyte# 0.68 X10^3/uL; Monocyte% 8.2 % (0-10); NRBC Flagged by Analyzer 0 % (0-5); Neutrophil # 6.83 X10^3/uL (2.7-7.7); Platelet Count 198 K/mm3 (150-450); RBC Distribution Width SD 45.1 fl (35.1-43.9); Red Blood Count 4.23 M/mm3 (4.6-6.2); White Blood Count 8.3 K/mm3 (4.4-11.0)
[2022-11-27 13:39] LABS: Color, Urine Yellow (Yellow); Glucose, Dipstick Normal (Normal); Ketone-Dipstick Negative (Negative); Leukocyte Esterase-Dipstick Negative /ul (Negative); Nitrite-Dipstick Negative (Negative); Occult Blood-Urine Negative /ul (Negative); Protein-Dipstick 15 mg/dl (Negative); Specific Gravity, Urine 1.025 (1.002-1.030); Urine Clarity Clear (Clear); Urine Urobilinogen 1 mg/dl (Normal)
[2022-11-27 13:41] LABS: Urine Bilirubin Dipstick 1 mg/dL (Negative)
[2022-11-27 13:52] LABS: ALB/GLOB Ratio 1.1 RATIO (0.9-2.4); AST(SGOT) 25 U/L (15-37); Alanine Aminotransfer ALT/SGPT 26 U/L (16-61); Albumin, Serum 3.4 g/dL (3.2-5.0); Alkaline Phosphatase 77 U/L (45-117); Anion Gap 6 (5-15); BUN 26 mg/dL (7-18); BUN/Creat Ratio 20.3 RATIO (10-20); Chloride 107 mmol/L (98-107); Creatinine, Serum 1.28 mg/dL (0.70-1.30); EST Glomerular Filtration Rate 57 mL/min (>60); Est Glom Filt Rate - Afr Amer 68 mL/min (>60); Estimated Creatinine Clearance 44.63 ml/min; Globulin 3.2 g/dL (2.2-4.2); Glucose 131 mg/dL (74-106); Lipase 34 U/L (13-75); Potassium 4.8 mmol/L (3.5-5.1); Protein, Total 6.6 g/dL (6.4-8.2); Sodium Level 138 mmol/L (136-145)
--- NOTE | 2022-11-27 15:20 | PCM.HP.STD ---
HPI - General General Date of Admission: 11/27/22 Date of Service: 11/27/22 Chief Complaint: Abdominal pain HPI Narrative CHACE ARMAS, is a 87 M who presents to presents with abdominal pain. His past medical history significant for bilateral inguinal repair as well as cholecystectomy. Patient symptoms started a week prior to his admission. He did develop abdominal pain located in the periumbilical region this is associated with nausea vomiting as well as diarrhea symptoms did resolve spontaneously. He had a recurrence on the morning of his admission hence his decision to present to the emergency department. CT of the abdomen obtained on admission did show Findings suggestive of early small bowel obstruction down to the mid ileal level. Admitted to regular nursing floor for subsequent management [facility] Medical History (Updated 11/27/22 @ 15:[address] Sameer Pratt MD) Abdominal pain BPH (benign prostatic hyperplasia) Diarrhea History of back problems History of colon polyps (~2002) History of prostate cancer History of prostate cancer HTN (hypertension) Hyperlipidemia Internal hemorrhoids Osteoarthritis SBO (small bowel obstruction) Weight loss Home Medications celecoxib 200 mg capsule 200 mg PO DAILY 09/03/17 [History Last Taken Unknown] tamsulosin 0.4 mg capsule 0.4 mg PO DAILY 09/03/17 [History Last Taken Unknown] allopurinol 300 mg tablet 300 mg PO DAILY 12/05/19 [History Last Taken Unknown] aspirin 81 mg tablet,delayed release 81 mg PO DAILY 12/05/19 [History Last Taken Unknown] calcium carbonate 500 mg calcium (1,250 mg) tablet 500 mg PO BID 12/05/19 [History Last Taken Unknown] lisinopril 10 mg tablet 20 mg PO DAILY hnt 12/05/19 [History Last Taken Unknown] multivitamin 1 tab PO DAILY 12/05/19 [History Last Taken Unknown] omega-3 fatty acids 1,000 mg capsule (Fish Oil Concentrate) 1,000 mg PO DAILY 12/05/19 [History Last Taken 12/14/19] tadalafil 20 mg tablet 20 mg PO DAILY PRN ed 12/05/19 [History Last Taken Unknown] acetaminophen 500 mg tablet 500 - 1,000 mg PO Q6H PRN PRN Pain Or Fever 12/14/19 [History Last Taken Unknown] famotidine 20 mg tablet 20 mg PO DAILY 04/15/21 [History Last Taken Unknown] finasteride 5 mg tablet (Proscar) 5 mg PO DAILY 04/15/21 [History Last Taken Unknown] glucosamine 750 mg-chondroit 100 mg-msm-D3 25 pvc-eygv-fpj bor tablet tab PO 04/15/21 [History Last Taken Unknown] nkqqqqagjd-cchkvjodt-koymtfe 30 mg-1 mg-20 mcg/mL intracavernosal soln ml intra-cavernosal 04/15/21 [History Last Taken Unknown] Allergy/AdvReac Type Severity Reaction Status Date / Time No Known Allergies Allergy Verified 11/27/22 12:16 Family History Brother Diabetes Cancer prostate Father Cancer prostate Mother Cancer cervical Sister Cancer ovarian Aunt Colon cancer Surgical History History of cholecystectomy History of colonoscopy (~2012) History of hemorrhoidectomy History of left inguinal hernia repair Social History Smoking Status: Never smoker ROS ROS Narrative GENERAL: denies fever, chills, night sweats, weight loss, anorexia HEENT: denies headache, sinus congestion, or drainage, dysphagia RESPIRATORY: denies cough, sputum production, shortness of breath, dyspnea on exertion CARDIAC: denies chest pain, palpitations, orthopnea, PND GASTROINTESTINAL: abdominal pain, nausea, vomiting, GENITOURINARY: denies dysuria, urgency, frequency, heamaturia EXTREMITY: denies swelling MUSCULOSKELETAL: denies current joint pain or tenderness NEUROLOGIC: denies focal numbness, weakness, tingling HEMATOLOGIC: denies easy bruising and/or hemorrhage INTEGUMENT: denies rashes PSYCHIATRIC: denies suicidal or homicidal ideation Vital Signs Vital Signs Vital Signs: 11/27/22 12:15 Temperature 97.5 F L Temperature Source Temporal Pulse Rate 73 Respiratory Rate 18 Blood Pressure 124/71 H Blood Pressure Mean 88 Pulse Ox 97 Oxygen Delivery Method Room Air Weight Weight: 86.636 kg Body Mass Index (BMI) 25.9 Physical Exam Narrative GENERAL: cooperative HEENT: Atraumatic; normocephalic EYES; Anicteric, Normal Conjunctiva NECK; supple, normal thyroid, RESPIRATORY: Diminished to auscultation CARDIOVASCULAR: Regular S1 S2, GI: soft, normoactive bowel sounds, : No Renal angle tenderness; EXTREMITIES: No edema, no clubbing, MUSCULOSKELETAL: no muscle wasting NEURO: Awake; no lateralizing signs. SKIN: No Rash PSYCH; Flat affect Results Lab / Micro Data 11/27/22 13:10 11/27/22 13:10 Labs: Laboratory Results - last 24 hr 11/27/22 13:10: WBC 8.3, RBC 4.23 L, Hgb 12.5 L, Hct 37.5 L, MCV 88.7, MCH 29.6, MCHC 33.3, RDW Std Deviation 45.1 H, RDW Coeff of [place]an 14.0, Plt Count 198, MPV 10.0, Immature Gran % (Auto) 0.200, Neut % (Auto) 82.0 H, Lymph % (Auto) 9.5 L, [place] % (Auto) 8.2, Eos % (Auto) 0.0, Baso % (Auto) 0.1, Absolute Neuts (auto) 6.8, Absolute Lymphs (auto) 0.79 L, Nucleated RBC % 0, Sodium 138, Potassium 4.8, Chloride 107, Carbon Dioxide 25.0, Anion Gap 6, BUN 26 H, Creatinine 1.28, Estim Creat Clear Calc 44.63, Est GFR (MDRD) Af Amer 68, Est GFR (MDRD) Non-Af 57 L, BUN/Creatinine Ratio 20.3 H, Glucose 131 H, Calcium 10.0, Total Bilirubin 1.10 H, AST 25, ALT 26, Alkaline Phosphatase 77, Total Protein 6.6, Albumin 3.4, Globulin 3.2, Albumin/Globulin Ratio 1.1, Lipase 34 11/27/22 13:15: Urine Color Yellow, Urine Clarity Clear, Urine pH 5.0, Ur Specific [place] 1.025, Urine Protein 15 H, Urine Glucose (UA) Normal, Urine Ketones Negative, Urine Occult Blood Negative, Urine Nitrite Negative, Urine Bilirubin 1 H, Urine Urobilinogen 1 H, Ur Leukocyte Esterase Negative, Urine RBC 0 SEEN, Urine WBC 0 SEEN, Ur Squamous Epith Cells 0 SEEN, Urine Bacteria 0 SEEN, Urine Mucus 0 SEEN Radiology Impression Abdomen/Pelvis CT 11/27/22 13:03 IMPRESSION: Findings suggestive of early small bowel obstruction down to the mid ileal level. Fluid is seen in the pelvis. Status post cholecystectomy. Small residual left inguinal hernia containing fat. The patient is status post left inguinal hernia repair. Electronically Signed: Mckay Winn MD at 14:33 EDT , Assessment & Plan Assessment/Plan (1) SBO (small bowel obstruction): PLAN: Plan Patient is an 87-year-old gentleman presenting with abdominal pain CT of the abdomen and pelvis obtained did show evidence of early small bowel obstruction 1. Small bowel obstruction/partial small bowel obstruction ? Secondary to suspected adhesions. Patient has been admitted to regular nursing floor plan is for patient to be managed conservatively with bowel rest, pain medication, antinausea medication. Consult placed to general surgery Case discussed with Dr. Purcell. Plan is for patient to undergo repeat imaging studies in a.m. 2. Hypertension - Blood pressure controlled, home medications continued with dose adjustment as needed 3. History of prostate CA ? Status post prostatectomy currently remission 4. Osteoarthritis ? Patient is on celecoxib plan is to continue once home meds have been reconciled 5. Gout ? Patient on allopurinol plan is to continue home dose 6 BPH ? Patient is on finasteride as well as tamsulosin we will continue home dose 7. DVT prophylaxis ? SC heparin Time spent in the patient's overall evaluation,decision-making process, review of diagnostic data, adjustment of management, discussion with other providers, nursing nursing and ancillary staff involved in patient's care documentation, 60 Minutes Advance planning; did discuss with the patient and family regarding advanced directives as well as CODE STATUS. Did explain the various scenarios involved ( FULL CODE, DNR CCA, DNR CCA with no intubation, and DNR CC and what each meant) patient elected to remain full code with CPR and intubation if needed. Order was placed. Time spent on discussion 18 minutes. Charges/Coding Visit Charges Inpatient E&M: 35213 Init Hosp L2 Procedures Hospitalists Procedures: 22590 Advncd Care Plan 30 Min
[2022-11-27 15:31] VITALS: BP 147/71; PULSE 59; RESP 16; TEMP 36.5; O2SAT 97
--- NOTE | 2022-11-27 15:34 | NURSING ---
MED SURG KITTOE BOWEL OBSTRUCTION
[2022-11-27 16:30] VITALS: BP 152/64; PULSE 63; RESP 18; TEMP 36.3; O2SAT 98
[2022-11-27 16:53] VITALS: BMI 24.5
--- NOTE | 2022-11-27 16:59 | CON.PCM.SX_ITS ---
Assessment & Plan Assessment/Plan (1) SBO (small bowel obstruction): PLAN: This is an 87-year-old, remarkably healthy, male who presents for evaluation of cute onset abdominal pain with associated nausea vomiting, and change of bowel habits (with 2 bouts of diarrhea) and ER work-up concerning for possible partial small bowel obstruction. Mr. Cai denies any present symptoms and his exam is rather reassuring with no abdominal distention or tenderness. I have independently reviewed his CT images and find no gastric distention, but do see the dilation of the proximal small bowel loops with air- fluid levels tapering to normal caliber ileum. There also appears to be some haziness at this transition zone in the distal ileum. This is less suggestive of adhesive disease and perhaps more suggestive of a regional enteritis/ileitis. Patient has no known sick contacts, but has been out in public recently. I believe this issue could be better studied with a small bowel series. Given Mr. Cai's lack of nausea presently I see it is a possibility that he could simply ingest the contrast orally. We will tentatively plan for the study tomorrow. This plan has been discussed with patient and his and they are in agreemen t. For now recommend n.p.o. with IV fluid support. HPI Consult Data Date of Consult: 11/27/22 HPI Narrative Reason for Consultation: Partial small bowel obstruction HPI Narrative: CHACE CAI, is a 87 M who presents to [facility] with his due to complaints of acute onset abdominal pain that has been associated with some nausea, vomiting, and diarrhea. Together they report that he felt poorly from 11/20/2022 through 11/22/2022 with nausea, vomiting and abdominal pain, but this all seem to remit once he was kept on a liquid diet. However, the symptoms recurred this morning and he decided to seek evaluation. Beyond the symptoms mentioned, he notes that he had 2 bouts of diarrhea and one normal stool in the intervening period between his episodes. He denies any prior history of small bowel obstruction. He denies any sick contacts and his comments that they limit their social interactions, generally, but that her did attend a dairy farming convention recently. ER work-up is notable for biochemistry is not showing normal white count but evidence of a left shift. CT imaging was read by radiology as potentially concerning for an early small bowel obstruction given evidence of small bowel dilation and air-fluid levels. There is a transition zone in the ileum. When seen on the floor Mr. Cai denies any abdominal discomfort. He denies any nausea or vomiting since his evaluation in the emergency department. His adds that she has noticed a significant improvement in his abdominal distention since his evaluation started. [facility] Medical History (Updated 11/27/22 @ 15:[address] Sameer Pratt MD) Abdominal pain BPH (benign prostatic hyperplasia) Diarrhea History of back problems History of colon polyps (~2002) History of prostate cancer History of prostate cancer HTN (hypertension) Hyperlipidemia Internal hemorrhoids Osteoarthritis SBO (small bowel obstruction) Weight loss Home Medications celecoxib 200 mg capsule 200 mg PO DAILY pain 09/03/17 [History Last Taken 11/26/22] tamsulosin 0.4 mg capsule 0.4 mg PO DAILY prostate 09/03/17 [History Last Taken 11/26/22] allopurinol 300 mg tablet 300 mg PO DAILY pain 12/05/19 [History Last Taken 11/26/22] aspirin 81 mg tablet,delayed release 81 mg PO DAILY heart health 12/05/19 [History Last Taken 11/26/22] calcium carbonate 500 mg calcium (1,250 mg) tablet 500 mg PO DAILY supplement 12/05/19 [History Last Taken 11/26/22] lisinopril 10 mg tablet 20 mg PO DAILY hypertension 12/05/19 [History Last Taken 11/26/22] multivitamin 1 tab PO DAILY supplement 12/05/19 [History Last Taken 11/26/22] omega-3 fatty acids 1,000 mg capsule (Fish Oil Concentrate) 1,000 mg PO DAILY supplement 12/05/19 [History Last Taken 11/26/22] tadalafil 20 mg tablet 20 mg PO DAILY PRN ed 12/05/19 [History Last Taken Unknown] acetaminophen 500 mg tablet 500 - 1,000 mg PO Q6H PRN PRN Pain Or Fever 12/14/19 [History Last Taken Unknown] famotidine 20 mg tablet 20 mg PO DAILY PRN as needed for stomach pain 04/15/21 [History Last Taken 11/26/22] finasteride 5 mg tablet (Proscar) 5 mg PO DAILY prostate 04/15/21 [History Last Taken Unknown] glucosamine 750 mg-chondroit 100 mg-msm-D3 25 vyo-idjm-dfx bor tablet 1 tab PO DAILY supplement 04/15/21 [History Last Taken 11/26/22] cvtywmmaak-dzrzcltls-drbwrmu 30 mg-1 mg-20 mcg/mL intracavernosal soln 1 ml intra-cavernosal DAILY PRN nasal congestion 04/15/21 [History Last Taken Unk nown] Allergy/AdvReac Type Severity Reaction Status Date / Time No Known Allergies Allergy Verified 11/27/22 12:16 Family History Brother Diabetes Cancer prostate Father Cancer prostate Mother Cancer cervical Sister Cancer ovarian Aunt Colon cancer Surgical History History of cholecystectomy History of colonoscopy (~2012) History of hemorrhoidectomy History of left inguinal hernia repair Social History Smoking Status: Never smoker Physical Exam Const alert, oriented x3 and no apparent distress Constitutional Narrative: Appears younger than stated age Resp normal respiratory effort GI GI Narrative: Well-healed transverse subcostal incision, nondistended, soft, nontender to palpation x4 quadrants Lab / Micro Data 11/27/22 13:10 11/27/22 13:10 Labs: Laboratory Results - last 24 hr 11/27/22 13:10: WBC 8.3, RBC 4.23 L, Hgb 12.5 L, Hct 37.5 L, MCV 88.7, MCH 29.6, MCHC 33.3, RDW Std Deviation 45.1 H, RDW Coeff of Dayan 14.0, Plt Count 198, MPV 10.0, Immature Gran % (Auto) 0.200, Neut % (Auto) 82.0 H, Lymph % (Auto) 9.5 L, [place] % (Auto) 8.2, Eos % (Auto) 0.0, Baso % (Auto) 0.1, Absolute Neuts (auto) 6.8, Absolute Lymphs (auto) 0.79 L, Nucleated RBC % 0, Sodium 138, Potassium 4.8, Chloride 107, Carbon Dioxide 25.0, Anion Gap 6, BUN 26 H, Creatinine 1.28, Estim Creat Clear Calc 44.63, Est GFR (MDRD) Af Amer 68, Est GFR (MDRD) Non-Af 57 L, BUN/Creatinine Ratio 20.3 H, Glucose 131 H, Calcium 10.0, Total Bilirubin 1.10 H, AST 25, ALT 26, Alkaline Phosphatase 77, Total Protein 6.6, Albumin 3.4, Globulin 3.2, Albumin/Globulin Ratio 1.1, Lipase 34 11/27/22 13:15: Urine Color Yellow, Urine Clarity Clear, Urine pH 5.0, Ur Specific [place] 1.025, Urine Protein 15 H, Urine Glucose (UA) Normal, Urine Ketones Negative, Urine Occult Blood Negative, Urine Nitrite Negative, Urine Bilirubin 1 H, Urine Urobilinogen 1 H, Ur Leukocyte Esterase Negative, Urine RBC 0 SEEN, Urine WBC 0 SEEN, Ur Squamous Epith Cells 0 SEEN, Urine Bacteria 0 SEEN, Urine Mucus 0 SEEN Radiology Impression Abdomen/Pelvis CT 11/27/22 13:03 IMPRESSION: Findings suggestive of early small bowel obstruction down to the mid ileal level. Fluid is seen in the pelvis. Status post cholecystectomy. Small residual left inguinal hernia containing fat. The patient is status post left inguinal hernia repair. Electronically Signed: Mckay Winn MD at 14:33 EDT , Charges/Coding Visit Charges Inpatient E&M: 51326 Init Hosp L2
[2022-11-27] MEDS: KCL 20MEQ in D5.45NS 20 MEQ/1,000 ML IV.SOLN. 150 MEQ IV ×2 (18:10→22:59)
[2022-11-27] MEDS: 0.9% Saline Lock 10 ML Syringe IV (18:13)
[2022-11-27 18:30] VITALS: BP 139/55
[2022-11-27 22:51] VITALS: BP 136/63; PULSE 52; RESP 18; TEMP 36.8; O2SAT 96
[2022-11-27] MEDS: Heparin Injection (Vial) 5,000 UNIT/ML VIAL 5000 UNIT SC (22:55)
--- NOTE | 2022-11-27 23:28 | NURSING ---
Pt has walked four full laps in the serraot-tolerated well.
[2022-11-28 04:58] VITALS: BP 119/65; PULSE 54; RESP 18; TEMP 36.7; O2SAT 94
[2022-11-28] MEDS: KCL 20MEQ in D5.45NS 20 MEQ/1,000 ML IV.SOLN. 150 MEQ IV (05:10)
--- NOTE | 2022-11-28 05:11 | NURSING ---
pt walked 2 full laps in the serrato.
[2022-11-28 05:22] VITALS: BMI 24.5
[2022-11-28 06:16] LABS: Absolute Neutrophil Count 3.5 X10^3/uL (2.0-7.7); Basophil# 0.01 X10^3/uL; Basophil% 0.2 % (0-1); Eosinophil# 0.06 X10^3/uL; Eosinophils% 1.1 % (0-5); Hematocrit 36.6 % (40-54); Hemoglobin 11.1 g/dL (13.0-16.5); Lymphocyte % 26.8 % (19-41); Mean Corp Hgb Conc 30.3 g/dL (32-36); Mean Corpuscular Volume 95.6 fL (80-94); Mean Platelet Vol. 10.9 fl (6.2-12.0); Monocyte# 0.55 X10^3/uL; Monocyte% 9.8 % (0-10); NRBC Flagged by Analyzer 0 % (0-5); Neutrophil # 3.47 X10^3/uL (2.7-7.7); Neutrophil % 61.9 % (47-70); Platelet Count 118 K/mm3 (150-450); RBC Distribution Width SD 48.7 fl (35.1-43.9); Red Blood Count 3.83 M/mm3 (4.6-6.2); White Blood Count 5.6 K/mm3 (4.4-11.0)
--- NOTE | 2022-11-28 06:33 | PN.SURG_ITS ---
Subjective Subjective 87-year-old gentleman. 1 week ago had severe abdominal pain tight distention nausea vomiting then developed diarrhea with resolution of pain. He had a brat diet for several days but then on Thursday resume to a normal diet and by yesterday had recurrent pain, nausea and vomiting. It is of note that prior to his arrival to the emergency room he had onset of diarrhea and symptoms were already improving. Currently he is denying any abdominal pain. He is passing flatus. He has not had any further stools. Previous abdominal procedures include a laparoscopic converted open cholecystectomy remotely and a previous history of a left inguinal herniorrhaphy. Objective Data Objective Data Vital Signs: Vital Signs Temp Pulse Resp BP Pulse Ox O2 Del Method 98.1 F 54 L 18 119/65 94 Room Air 11/28/22 04:58 11/28/22 04:58 11/28/22 04:58 11/28/22 04:58 11/28/22 04:58 11/28/22 04:58 Oxygen Delivery Method Room Air Weight: 180 lb 12.465 oz Body Mass Index (BMI) 24.5 Intake & Output: Intake and Output for Last 24 Hours 11/26/22 11/27/22 11/28/22 23:59 23:59 23:59 Intake Total 1722.5 / 1722.5 927.5 / 927.5 Output Total 200 / 200 Balance 1522.5 / 1522.5 927.5 / 927.5 Lab / Micro Data 11/27/22 13:10 11/27/22 13:10 Labs: Laboratory Results - last 24 hr 11/27/22 13:10: WBC 8.3, RBC 4.23 L, Hgb 12.5 L, Hct 37.5 L, MCV 88.7, MCH 29.6, MCHC 33.3, RDW Std Deviation 45.1 H, RDW Coeff of Dayan 14.0, Plt Count 198, MPV 10.0, Immature Gran % (Auto) 0.200, Neut % (Auto) 82.0 H, Lymph % (Auto) 9.5 L, [place] % (Auto) 8.2, Eos % (Auto) 0.0, Baso % (Auto) 0.1, Absolute Neuts (auto) 6.8, Absolute Lymphs (auto) 0.79 L, Nucleated RBC % 0, Sodium 138, Potassium 4.8, Chloride 107, Carbon Dioxide 25.0, Anion Gap 6, BUN 26 H, Creatinine 1.28, Estim Creat Clear Calc 44.63, Est GFR (MDRD) Af Amer 68, Est GFR (MDRD) Non-Af 57 L, BUN/Creatinine Ratio 20.3 H, Glucose 131 H, Calcium 10.0, Total Bilirubin 1.10 H, AST 25, ALT 26, Alkaline Phosphatase 77, Total Protein 6.6, Albumin 3.4, Globulin 3.2, Albumin/Globulin Ratio 1.1, Lipase 34 11/27/22 13:15: Urine Color Yellow, Urine Clarity Clear, Urine pH 5.0, Ur Specific [place] 1.025, Urine Protein 15 H, Urine Glucose (UA) Normal, Urine Ketones Negative, Urine Occult Blood Negative, Urine Nitrite Negative, Urine Bilirubin 1 H, Urine Urobilinogen 1 H, Ur Leukocyte Esterase Negative, Urine RBC 0 SEEN, Urine WBC 0 SEEN, Ur Squamous Epith Cells 0 SEEN, Urine Bacteria 0 SEEN, Urine Mucus 0 SEEN Radiography Diagnostic Testing: Radiology Impression Abdomen/Pelvis CT 11/27/22 13:03 IMPRESSION: Findings suggestive of early small bowel obstruction down to the mid ileal level. Fluid is seen in the pelvis. Status post cholecystectomy. Small residual left inguinal hernia containing fat. The patient is status post left inguinal hernia repair. Electronically Signed: Mckay Winn MD at 14:33 EDT , Physical Exam Const oriented x3 and no apparent distress Constitutional Narrative: Absolutely comfortable. Moving easily. In no distress. Resp normal respiratory effort and clear to auscultation bilaterally GI GI Narrative: Soft, slightly distended, no focal tenderness, no mass no rebound. Bowel sounds are infrequent Extremity normal to inspection and no calf tenderness Assessment & Plan Assessment/Plan (1) SBO (small bowel obstruction): PLAN: History and clinical exam and imaging findings consistent with adhesive small bowel obstruction. We will obtain a Gastrografin small bowel follow- through. Patient already symptom-edmondson is resolving. He is aware that we will hopefully be able to start clear liquids later today. He is additionally aware however that his episode 1 week ago sounds like a similar process. He may or ma y not definitively resolve with nonoperative management. He is aware that even if he progresses on this occasion that there would still be potential for recurrence. He has had an opportunity to ask and have questions answered. I appreciate the opportunity of assisting with his care. Twin Fragoso M.D., F.A.C.S.
[2022-11-28 06:53] LABS: Anion Gap 4 (5-15); BUN 17 mg/dL (7-18); BUN/Creat Ratio 17.1 RATIO (10-20); Calcium,Total 9.4 mg/dL (8.5-10.1); Chloride 112 mmol/L (98-107); EST Glomerular Filtration Rate 76 mL/min (>60); Est Glom Filt Rate - Afr Amer 91 mL/min (>60); Estimated Creatinine Clearance 57.12 ml/min; Glucose 113 mg/dL (74-106); Magnesium 1.8 mg/dL (1.6-2.6); Potassium 4.5 mmol/L (3.5-5.1); Sodium Level 139 mmol/L (136-145)
--- NOTE | 2022-11-28 07:18 | PCM.PN.HOSP ---
Reason for Visit Reason for Visit: Diagnoses Unspecified intestinal obstruction, unspecified as to partial versus complete obstruction (11/27/22) Subjective Subjective Patient is an 87-year-old gentleman who presented with nausea vomiting and diarrhea imaging studies demonstrated small bowel obstruction. Seen by general surgery plan is for patient to undergo further evaluation with Gastrografin small bowel follow-through Objective Data Objective Data Vital Signs: Vital Signs Temp Pulse Resp BP Pulse Ox O2 Del Method 98.1 F 54 L 18 119/65 94 Room Air 11/28/22 04:58 11/28/22 04:58 11/28/22 04:58 11/28/22 04:58 11/28/22 04:58 11/28/22 04:58 Oxygen Delivery Method Room Air Weight: 82 kg Body Mass Index (BMI) 24.5 Intake & Output: Intake and Output for Last 24 Hours 11/26/22 11/27/22 11/28/22 23:59 23:59 23:59 Intake Total 1722.5 / 1722.5 927.5 / 927.5 Output Total 200 / 200 Balance 1522.5 / 1522.5 927.5 / 927.5 Lab / Micro Data 11/28/22 05:20 11/28/22 05:20 Labs: Laboratory Results - last 24 hr 11/27/22 13:10: WBC 8.3, RBC 4.23 L, Hgb 12.5 L, Hct 37.5 L, MCV 88.7, MCH 29.6, MCHC 33.3, RDW Std Deviation 45.1 H, RDW Coeff of Dayan 14.0, Plt Count 198, MPV 10.0, Immature Gran % (Auto) 0.200, Neut % (Auto) 82.0 H, Lymph % (Auto) 9.5 L, Moca % (Auto) 8.2, Eos % (Auto) 0.0, Baso % (Auto) 0.1, Absolute Neuts (auto) 6.8, Absolute Lymphs (auto) 0.79 L, Nucleated RBC % 0, Sodium 138, Potassium 4.8, Chloride 107, Carbon Dioxide 25.0, Anion Gap 6, BUN 26 H, Creatinine 1.28, Estim Creat Clear Calc 44.63, Est GFR (MDRD) Af Amer 68, Est GFR (MDRD) Non-Af 57 L, BUN/Creatinine Ratio 20.3 H, Glucose 131 H, Calcium 10.0, Total Bilirubin 1.10 H, AST 25, ALT 26, Alkaline Phosphatase 77, Total Protein 6.6, Albumin 3.4, Globulin 3.2, Albumin/Globulin Ratio 1.1, Lipase 34 11/27/22 13:15: Urine Color Yellow, Urine Clarity Clear, Urine pH 5.0, Ur Specific [place] 1.025, Urine Protein 15 H, Urine Glucose (UA) Normal, Urine Ketones Negative, Urine Occult Blood Negative, Urine Nitrite Negative, Urine Bilirubin 1 H, Urine Urobilinogen 1 H, Ur Leukocyte Esterase Negative, Urine RBC 0 SEEN, Urine WBC 0 SEEN, Ur Squamous Epith Cells 0 SEEN, Urine Bacteria 0 SEEN, Urine Mucus 0 SEEN 11/28/22 05:20: WBC 5.6, RBC 3.83 L, Hgb 11.1 L, Hct 36.6 L, MCV 95.6 H D, MCH 29.0, MCHC 30.3 L D, RDW Std Deviation 48.7 H, RDW Coeff of Dayan 14.0, Plt Count 118 L, MPV 10.9, Immature Gran % (Auto) 0.200, Neut % (Auto) 61.9, Lymph % (Auto) 26.8, Moca % (Auto) 9.8, Eos % (Auto) 1.1, Baso % (Auto) 0.2, Absolute Neuts (auto) 3.5, Absolute Lymphs (auto) 1.50, Nucleated RBC % 0, Sodium 139, Potassium 4.5, Chloride 112 H, Carbon Dioxide 23.0, Anion Gap 4 L, BUN 17, Creatinine 1.00, Estim Creat Clear Calc 57.12, Est GFR (MDRD) Af Amer 91, Est GFR (MDRD) Non-Af 76, BUN/Creatinine Ratio 17.1, Glucose 113 H, Calcium 9.4, Phosphorus 2.0 L, Magnesium 1.8 Radiography Diagnostic Testing: Radiology Impression Abdomen/Pelvis CT 11/27/22 13:03 IMPRESSION: Findings suggestive of early small bowel obstruction down to the mid ileal level. Fluid is seen in the pelvis. Status post cholecystectomy. Small residual left inguinal hernia containing fat. The patient is status post left inguinal hernia repair. Electronically Signed: Mckay Winn MD at 14:33 EDT , Physical Exam Narrative GENERAL: cooperative HEENT: Atraumatic; normocephalic EYES; Anicteric, Normal Conjunctiva NECK; supple, normal thyroid, RESPIRATORY: Diminished to auscultation CARDIOVASCULAR: Regular S1 S2, GI: soft, normoactive bowel sounds, : No Renal angle tenderness; EXTREMITIES: No edema, no clubbing, MUSCULOSKELETAL: no muscle wasting NEURO: Awake; no lateralizing signs. SKIN: No Rash PSYCH; Flat affect Assessment & Plan Assessment/Plan (1) SBO (small bowel obstruction): PLAN: Plan Patient is an 87-year-old gentleman presenting with abdominal pain CT of the abdomen and pelvis obtained did show evidence of early small bowel obstruction 1. Small bowel obstruction/partial small bowel obstruction ? Secondary to suspected adhesions. Patient has been admitted to regular nursing floor plan is for patient to be managed conservatively with bowel rest, pain medication, antinausea medication. Consult placed to general surgery Case discussed with Dr. Purcell. Plan is for patient to undergo repeat imaging studies in a.m. ? 11/28/2022; patient was seen in consultation by Dr. Fragoso with general surgery recommended for patient to undergo subsequent evaluation with Gastrografin small bowel follow-through. 2. Hypertension - Blood pressure controlled, home medications continued with dose adjustment as needed 3. History of prostate CA ? Status post prostatectomy currently remission 4. Osteoarthritis ? Patient is on celecoxib plan is to continue once home meds have been reconciled 5. Gout ? Patient on allopurinol plan is to continue home dose 6 BPH ? Patient is on finasteride as well as tamsulosin we will continue home dose 7. DVT prophylaxis ? SC heparin Time spent in the patient's overall evaluation,decision-making process, review of diagnostic data, adjustment of management, discussion with other providers, nursing nursing and ancillary staff involved in patient's care documentation, 50 minutes Charges/Coding Visit Charges Inpatient E&M: 51760 [facility] L[facility]
--- NOTE | 2022-11-28 09:15 | RAD_ITS ---
CLINICAL HISTORY: Male, 87 years old. Gastrografin small bowel follow-through examination. PROCEDURE: The patient ingested a mixture of Gastrografin and water. FLUOROSCOPY TIME (if supplied): (55 seconds) minutes/seconds. 21.39 mGy. 16 images were obtained. TECHNIQUE: (All elements of maximal sterile barrier technique followed, including US elements as applicable) The patient ingested Gastrografin in water. A small bowel follow-through examination was obtained. FINDINGS: Minimally dilated small bowel loops. Contrast is seen within the colon at 60 minutes. RAD/Upper GI/w Small Bowel IMPRESSION: Contrast is seen within the colon at 60 minutes. Electronically Signed: Mckay Winn MD at 12:28 EDT ,
--- NOTE | 2022-11-28 09:20 | RAD_ITS ---
STUDY: X-RAY - ABDOMEN/PELVIS REASON FOR EXAM: Male, 87 years old. SBO TECHNIQUE: Single AP view of the abdomen / pelvis. COMPARISON: None. FINDINGS: Normal visualized lung bases. Minimally distended small bowel loops with air and fluid. Gas is seen in the rectum. The visualized liver, spleen and kidneys are grossly normal in size and morphology. There is evidence of prior left inguinal hernia repair. There are diffuse degenerative changes of the visualized lumbar spine. RAD/Abd Inc Decub and/or Erect IMPRESSION: Mildly distended small bowel loops. Gas is seen in the rectum. Electronically Signed: Mckay Winn MD at 12:27 EDT ,
[2022-11-28 10:42] VITALS: BP 122/62; PULSE 62; RESP 16; TEMP 36.7; O2SAT 95
--- NOTE | 2022-11-28 10:45 | CASEMGMT ---
SHORTY MORENO Assessment: Face to Face with pt for initial transition planning/care coordination assessment. RN TIFFANIE introduced self and role at [facility], pt voices understanding and consents to assessment. Pt is A/O x4 and answers all questions appropriately at this time. Pt lying in bed in no distress with at bedside. Care providers, pharmacy, and demographics verified/updated. Admitting Dx: SBO PCP:Priyank Specialists: [facility]; [facility], uro; [facility], derm; [facility] Preferred Pharmacy: [facility]: [facility] Supp Prescription Benefit: yes LNOK: Neelima Cai, Living Arrangements: Pt lives with in a two story home, only uses first floor, with 2 steps to enter with a rail. Pt reports he is I in ADL's and denies concerns at home. Pt is 's cg. Transportation: Pt drives self and denies concerns with transportation. DME/HHC/SNF: Pt has a cane and walker available to him but does not use AD. Pt denies hx of HHC or SNF stays. Pt states no concerns with going home at time of dc. Pt has been ambulating the halls independently. Pt states no further concerns/needs. CM to follow. Advised pt to ask CM if any further question/concerns/needs arise, voices understanding. Pt Goal: Home Plan: Home
[2022-11-28] MEDS: KCL 20MEQ in D5.45NS 20 MEQ/1,000 ML IV.SOLN. 100 MEQ IV (15:00)
[2022-11-28 15:26] VITALS: BP 128/68; PULSE 60; RESP 16; TEMP 36.8; O2SAT 99
--- NOTE | 2022-11-28 16:43 | DS.PCM_ITS ---
Providers Date of Admission: 11/27/22 Date of Discharge: 11/28/22 Primary Care Physician: Dr. Tim Yost MD Consultations 11/27/22 19:49 Consult: General Surgery Routine Consulting Provider: Fernando Purcell Reason for Consult: SBO EMERGENT Consult: No Notified: Yes Date Notified: 11/27/22 Time Notified: 17:00 Method of Notification: Verbal Reason For Visit: SBO Diagnosis Discharge Diagnosis (1) SBO (small bowel obstruction): Status: Acute Code(s): K56.609 - Unspecified intestinal obstruction, unspecified as to partial versus complete obstruction Plan Patient is an 87-year-old gentleman presenting with abdominal pain CT of the abdomen and pelvis obtained did show evidence of early small bowel obstruction 1. Small bowel obstruction/partial small bowel obstruction ? Secondary to suspected adhesions. Patient has been admitted to regular nursing floor plan is for patient to be managed conservatively with bowel rest, pain medication, antinausea medication. Consult placed to general surgery Case discussed with Dr. Purcell. Plan is for patient to undergo repeat imaging studies in a.m. ? 11/28/2022; patient was seen in consultation by Dr. Fragoso with general surgery recommended for patient to undergo subsequent evaluation with Gastrografin small bowel follow-through. -The Gastrografin small bowel follow-through did demonstrate presence of contrast in the colon within 60 minutes Case subsequently discussed with Dr.C davila patient n.p.o. discontinued started on clear liquid which is advance as tolerated. Patient to follow-up with general surgery Dr. Fragoso as outpatient 2. Hypertension - Blood pressure controlled, home medications continued with dose adjustment as needed 3. History of prostate CA ? Status post prostatectomy currently remission 4. Osteoarthritis ? Patient is on celecoxib plan is to continue once home meds have been reconciled 5. Gout ? Patient on allopurinol plan is to continue home dose 6 BPH ? Patient is on finasteride as well as tamsulosin we will continue home dose 7. DVT prophylaxis ? SC heparin Medications at Discharge Home Medications celecoxib 200 mg capsule 200 mg PO DAILY pain 09/03/17 tamsulosin 0.4 mg capsule 0.4 mg PO DAILY prostate 09/03/17 allopurinol 300 mg tablet 300 mg PO DAILY pain 12/05/19 aspirin 81 mg tablet,delayed release 81 mg PO DAILY [facility] 12/05/19 calcium carbonate 500 mg calcium (1,250 mg) tablet 500 mg PO DAILY supplement 12/05/19 lisinopril 10 mg tablet 20 mg PO DAILY hypertension 12/05/19 multivitamin 1 tab PO DAILY supplement 12/05/19 omega-3 fatty acids 1,000 mg capsule (Fish Oil Concentrate) 1,000 mg PO DAILY supplement 12/05/19 tadalafil 20 mg tablet 20 mg PO DAILY PRN ed 12/05/19 acetaminophen 500 mg tablet 500 - 1,000 mg PO Q6H PRN PRN Pain Or Fever 12/14/19 famotidine 20 mg tablet 20 mg PO DAILY PRN as needed for stomach pain 04/15/21 finasteride 5 mg tablet (Proscar) 5 mg PO DAILY prostate 04/15/21 glucosamine 750 mg-chondroit 100 mg-msm-D3 25 xjt-wayr-xpb bor tablet 1 tab PO DAILY supplement 04/15/21 ywbeojvhvd-eonlksizy-lrhwkat 30 mg-1 mg-20 mcg/mL intracavernosal soln 1 ml intra-cavernosal DAILY PRN nasal congestion 04/15/21 Hospital Course Summary of Care Provided Minutes Spent on Discharge: 35 Physical Exam Narrative GENERAL: cooperative HEENT: Atraumatic; normocephalic EYES; Anicteric, Normal Conjunctiva NECK; supple, normal thyroid, RESPIRATORY: Diminished to auscultation CARDIOVASCULAR: Regular S1 S2, GI: soft, normoactive bowel sounds, : No Renal angle tenderness; EXTREMITIES: No edema, no clubbing, MUSCULOSKELETAL: no muscle wasting NEURO: Awake; no lateralizing signs. SKIN: No Rash PSYCH; Flat affect Medical Records Data Medical Nutrition Assessment Dietitian: Malnutrition Criteria Met Start: 11/28/22 15:13 Freq: Status: Active Protocol: Document 11/28/22 15:13 CARMELA (Rec: 11/28/22 15:13 [facility] [id number]) Nutrition Malnutrition Evidence of Malnutrition Exists Yes Malnutrition (severe): Acute Illness/Injury Evidenced By Suboptimal Energy Intake ( Severe),Weight Loss (Severe) Clinical Problem Acute Disease or Injury Related Malnutrition Etiology related to issues w/ severe vomiting/diarrhea x 2 in past week and pt w/ inadequate energy intake Signs/Symptoms as evidenced by 5.1% unplanned wt loss and <75% of usual po intake x 1 wk. Status Active Problem Recommendation Dietitian Recommendations/Changes Rec advance BREANNA to transitional w/ goal of low fiber until fully recovered Will provide 8 oz ensure clear w/ meals for increased nutrition if consumed, once diet progresses, will change to 4 oz ensure plus high protein tid w/ meals. Weight / BMI Weight Weight: 82 kg Body Mass Index (BMI) 24.5 ABG / Lab / Microbiology Data 11/28/22 05:20 11/28/22 05:20 Laboratory: Laboratory Results - last 24 hr 11/28/22 05:20: WBC 5.6, RBC 3.83 L, Hgb 11.1 L, Hct 36.6 L, MCV 95.6 H D, MCH 29.0, MCHC 30.3 L D, RDW Std Deviation 48.7 H, RDW Coeff of Dayan 14.0, Plt Count 118 L, MPV 10.9, Immature Gran % (Auto) 0.200, Neut % (Auto) 61.9, Lymph % (Auto) 26.8, Christian % (Auto) 9.8, Eos % (Auto) 1.1, Baso % (Auto) 0.2, Absolute Neuts (auto) 3.5, Absolute Lymphs (auto) 1.50, Nucleated RBC % 0, Sodium 139, Potassium 4.5, Chloride 112 H, Carbon Dioxide 23.0, Anion Gap 4 L, BUN 17, Creatinine 1.00, Estim Creat Clear Calc 57.12, Est GFR (MDRD) Af Amer 91, Est GFR (MDRD) Non-Af 76, BUN/Creatinine Ratio 17.1, Glucose 113 H, Calcium 9.4, Phosphorus 2.0 L, Magnesium 1.8 Radiography Diagnostic Testing: Radiology Impression Upper GI and Small Bowel X-Ray 11/28/22 09:15 IMPRESSION: Contrast is seen within the colon at 60 minutes. Electronically Signed: Mckay Winn MD at 12:28 EDT , Abdomen X-Ray 11/28/22 09:20 IMPRESSION: Mildly distended small bowel loops. Gas is seen in the rectum. Electronically Signed: Mckay Winn MD at 12:27 EDT , D/C Instructions Discharge Diet: No restrictions Discharge Activity: Return to Normal Activity Call your doctor if you observe: Fever of 101 or Higher, Shortness of breath, Fainting spells and Chest pain Meaningful Use Info Meaningful Use Diagnoses (Choose all that apply): None applicable Discharge Plan Admission Admit Date/Time: 11/27/22 15:21 Attending Provider: Sameer Pratt Primary Care Provider: Tim Yost Consulting Providers: Fernando Purcell Discharge Orders/Prescriptions Prescriptions: No Action aspirin 81 mg tablet,delayed release (DR/EC) 81 mg PO DAILY allopurinol 300 mg tablet 300 mg PO DAILY calcium carbonate 500 mg calcium (1,250 mg) tablet 500 mg PO DAILY omega-3 fatty acids [Fish Oil Concentrate] 1,000 mg capsule 1,000 mg PO DAILY multivitamin Tablet 1 tab PO DAILY tadalafil 20 mg tablet 20 mg PO DAILY PRN (Reason: ed) Hold Instructions: pt no longer taking Rx Instructions: administer approximately 30min before sexual activity; do not use more than 1 dose per 24hrs ztmsc-pkwccuxnp-xrkudfo-water 30 mg-1 mg- 20 mcg/mL solution 1 ml intra-cavernosal DAILY PRN (Reason: nasal congestion) mbaa-rugqd-yoh-D3-hyal-betito bor 750 mg-100 mg- 25 mcg tablet 1 tab PO DAILY famotidine 20 mg tablet 20 mg PO DAILY PRN (Reason: as needed for stomach pain) finasteride [Proscar] 5 mg tablet 5 mg PO DAILY celecoxib 200 MG capsule 200 mg PO DAILY tamsulosin 0.4 MG capsule 0.4 mg PO DAILY lisinopril 10 mg tablet 20 mg PO DAILY acetaminophen 500 MG tablet 500 - 1,000 mg PO Q6H PRN PRN (Reason: Pain Or Fever) Referrals / Follow Up: Twin Fragoso MD [Med Staff - Active Staff] - In 1 Week (Patient to call Dr. Fragoso's office for follow-up appointment) Tim Yost MD [Primary Care Provider] - Within 1 Week Disposition Disposition (needs filled in before D/C Order can be placed): Home, Self Care Charges/Coding Visit Charges Inpatient E&M: 14338 Disch Hosp >30min
== END 2022-11-28 18:45 | disposition home or self-care (01) | DRG 390 ==
LOC: ED 15:34 → MS3 15:39
PROVIDERS: Physician Assistant; Admitting Provider Internal Medicine; Emergency Provider Emergency Medicine; PCP Internal Medicine; Visit Provider Internal Medicine
DX: K56.51 Intestinal adhesions [bands], with partial obstruction (principal); E78.5 Hyperlipidemia, unspecified; I10 Essential (primary) hypertension; M19.90 Unspecified osteoarthritis, unspecified site; M10.9 Gout, unspecified; R19.7 Diarrhea, unspecified; N40.0 Benign prostatic hyperplasia without lower urinary tract symptoms; Z79.1 Long term (current) use of non-steroidal anti-inflammatories (NSAID); Z79.82 Long term (current) use of aspirin; Z79.899 Other long term (current) drug therapy
CPT/HCPCS: 36415; 74019; 74177; 74246; 74248; 80048; 80053; 81001; 83690; 83735; 84100; 85025; 94668; 97802; 99283; J7030; Q9967; A4216; J2405

== ENCOUNTER 2022-12-01 15:26 | Inpatient (IN) | payer MEDICARE, OTHER, SELFPAY ==
[2022-12-01] VITALS (13 sets, daily range): BP systolic 98–138; BP diastolic 47–66; PULSE 61–90; RESP 16–20; TEMP 36–37.1; O2SAT 93–99; BMI 25.7
--- NOTE | 2022-12-01 13:00 | APP_PTH ---
PATIENT: CHACE ARMAS LOC: MS3 U#:[id number] AGE/SX: 87/M ROOM: AL317 RE12/02/[address]: Dr. Twin Fragoso MD : [id number] BED: 1 DIS: 12/16/2022 SPEC #: [id number] RECD: 12/01/22 15:58 STATUS: MANUELA HANSEN #: [id number] DORINDA: 12/01/22 13:[address]: Twin Fragoso DEPT: SURGICAL PATHOLOGY RECD BY: Jennifer Burris ENTERED: 12/02/22 09:54 SP TYPE: APPENDIX OTHR DR: Dr. Tim Yost MD Tissues: Appendix, NOS Procedures: Surgery Specimen Level II Surgery Specimen Level III HEADER OPERATION: Exploratory laparoscopy, incidental appendectomy, lysis of adhesions PRE-OP DIAGNOSIS: Partial small bowel obstruction TISSUE SUBMITTED: Appendix and fat pad of terminal ileum MICROSCOPIC DIAGNOSIS Appendix, incidental appendectomy: Appendix, no pathologic diagnosis. See comment. Fat pad of terminal ileum, lysis of adhesions: A piece of adipose tissue, no pathologic diagnosis. EDILBERTO:ethel 12/03/2022 COMMENT Most of the appendix shows fibrous luminal obliteration. MICROSCOPIC DESCRIPTION Slides are reviewed. GROSS DESCRIPTION Received in fixative is one container labeled with the patient's name and designated appendix and fat pad of terminal ileum. The specimen consists of a C-shaped appendix measuring 4.0 cm in length and up to 0.5 cm in diameter. The attached periappendiceal adipose tissue measures up to 2.0 cm in width. No obvious perforation is identified. The lumen is pinpoint. No fecalith is identified. Also present in the container is a detached piece of adipose tissue, identified as fat pad of terminal ileum, measuring 5.0 x 2.0 x 1.0 cm. Sections reveal yellow adipose cut surfaces. No mass lesion is identified. Director Of Reimbursement sections are submitted in two cassettes. Cassette 2 also contains the fat pad of terminal ileum. The appendix is submitted in entirety. / EDILBERTO:ethel 12/02/2022 TC:4 CPT: 98081, 88836
[2022-12-01] MEDS: Lactated Ringers 1,000 ML 15 ML IV (13:15)
--- NOTE | 2022-12-01 13:21 | EKG12_ITS ---
Test Reason : PREOP Blood Pressure : / mmHG Vent. Rate : 066 BPM Atrial Rate : 066 BPM P-R Int : 216 ms QRS Dur : 084 ms QT Int : 390 ms P-R-T Axes : 060 052 078 degrees QTc Int : 408 ms Sinus rhythm with marked sinus arrhythmia with 1st degree A-V block Nonspecific ST abnormality Abnormal ECG When compared with ECG of 14-JAN-2008 06:17, MANUAL COMPARISON REQUIRED, DATA IS UNCONFIRMED Confirmed by YAN CARLISLE, NORMA ([id number]), research editor OPHELIA STORY ([id number]) on 12/05/2022 10:33:35 AM Referred By: Twin Fragoso Confirmed By:NORMA HEREDIA MD
--- NOTE | 2022-12-01 13:24 | PCM.HP.BLA ---
History and Physical Date of Admission: 12/01/22 Visit Reasons: complaints of distention Chief Complaint: left breast nodule Allergies No Known Allergies Allergy (Verified 11/27/22 12:16) ON LICENSE OF [facility] Medical History Abdominal pain BPH (benign prostatic hyperplasia) Diarrhea History of back problems History of colon polyps (~2002) History of prostate cancer History of prostate cancer HTN (hypertension) Hyperlipidemia Internal hemorrhoids Osteoarthritis SBO (small bowel obstruction) Weight loss Surgical History History of cholecystectomy History of colonoscopy (~2012) History of hemorrhoidectomy History of left inguinal hernia repair Family History Brother Diabetes Cancer prostateFather Cancer prostateMother Cancer cervicalSister Cancer ovarianAunt Colon cancer Social History Smoking Status: Never smoker HPI HPI HPI: 87-year-old gentleman. This is a readmission. He was hospitalized November 27, 2022 through November 28, 2022. He presented with small bowel obstruction. A Gastrografin small bowel follow-through was performed on November 29, 2019 seemingly demonstrating clear passage. He was started on clear liquids advance to full liquids did well and was discharged in the evening of November 28. Over the weekend on November 29 and and further he was doing okay but still did not feel his abdomen was normal. Yesterday after trying to eat a small amount of solid food he became much more tight and distended. Today he had some liquidy diarrhea still is not feeling well. He only has had a half of banana early this morning and some water at 10:00. Report comes out that he has had at least a 10 pound weight loss. Actually for now several months he has not been eating his normal diet avoiding solids because they would upset his stomach. There is concern on both the patient's part and the 's part that this presenting problem is more of a slowly progressing chronic nature. I assisted him with a colonoscopy December 21, 2019. This showed lax anal tone. Hemorrhoids. A tortuous colon. No other acute findings. The patient's admission CT scan on November 27, 2022 suggest early small bowel obstruction in the mid ileum. Fluid was seen in the pelvis. Evidence of a small residual left inguinal hernia containing fat. Evidence of the previous left inguinal hernia repair. Laboratory of November 28, 2022 showed a white count of 5.6 with a hemoglobin 11.1 hematocrit 36.6 platelet count 118,000. Whereas on presentation his BUN was 26 after hydration it was 17 and after hydration his creatinine went from 1.28 down to 1. He has had a history of a previous open cholecystectomy and open left inguinal herniorrhaphy. He is complaining of supraumbilical epigastric abdominal soreness and distention and some looser diarrheal stools ROS General Additional Details: At least 10 pound weight loss HEENT HEENT: No difficulty swallowing Skin Skin: No rash Cardio Additional Details: No chest pain Regular rate and rhythm Resp Respiratory: No shortness of breath Gastro Gastrointestinal: Yes abdominal pain and Yes diarrhea Neuro Neurologic: Yes system reviewed and no additional complaints, except as documented Exam Const General: cooperative, healthy appearing, comfortable and no acute distress Nutritional Appearance: average body habitus Orientation: alert, awake and oriented x3 HENMT Head: normal to inspection Eyes General: appearance normal, both eyes and all related structures Neck Neck: normal visual inspection Chest Chest palpation & inspection: normal inspection of the chest Resp Effort & Inspection: normal respiratory effort Auscultation: clear to auscultation bilaterally Cardio Rate: regular rate Rhythm: regular rhythm GI Other: Softly distended, mild tenderness in the epigastrium, bowel sounds present but very nonspecific, groins nontender Musc Cervical Spine: normal cervical lordosis Skin General: no rashes or lesions noted Neuro General: patient alert, patient awake and patient oriented x3 Extrem General: no calf tenderness Psych Appearance: grossly normal Assessment and Plan Assessment and Plan (1) Partial small bowel obstruction: Status: Acute Plan: 87-year-old gentleman who seemingly improved with what was felt to be a partial small bowel obstruction with a Gastrografin study demonstrating clearance however over the past 2 days he has not been well with ongoing problems with abdominal distention pain and diarrhea. It came to light today that the patient actually for several months has been feeling not his normal self and is altered his diet to a low fiber diet to assist. On reviewing his images I question whether there could be a loop of small bowel that has thickened garza. Possibly this represents inflammatory bowel disease. I am recommending to the patient a exploratory laparoscopy with possible conversion to a laparotomy for inspection of particularly small bowel dysfunction. He is aware of the technique, benefit, risk, alternatives. He has had an opportunity to ask and have questions answered. We will readmit him and proceed as OR timing permits. Copy: Dr. Tim Fragoso M.D., F.A.C.S.
[2022-12-01] MEDS: Cefotetan 2 GM in 0.9% NS 100 ML IV (13:59)
--- NOTE | 2022-12-01 15:17 | OP.PCM_ITS ---
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 87-year-old gentleman was taken to the operating placed upon the table underwent general endotracheal anesthesia. An OG tube was placed. The abdomen sterilely prepped and draped. Cefotetan 2 g were given intravenously. A supraumbilical vertical incision was created holding sutures of 0 Vicryl placed direct dissection performed down through the subcutaneous tissue fascia was incised peritoneum was identified incised and the sound catheter was inserted the abdomen was inflated with CO2 to a pressure 10 mmHg pressure multiple dilated loops of small bowel encountered in the left lower quadrant the sigmoid colon was adherent adherent to the anterior left lower quadrant abdominal wall. No evidence of inflammation or acute defects there. The right groin was partially blocked off by the cecum. The terminal small bowel was completely decompressed. The colon appeared to be decompressed throughout. The majority of the small bowel was dilated. I placed a 5 mm trocar in the epigastric area and a 5 mm trocar in the left lower quadrant area under direct visualization I was able to get access to the terminal ileum started to gently follow that back found a portion of bowel that was nondiste nded and upon pulling it from beneath other bowel there was a clear transition point however not a clear adhesive band. Prior to doing that I had used a general laparoscopic sweeping technique to get the dilated small bowel from the right side of the abdomen to the left. Carefully then ran part of the small bowel additionally saw no additional defects and did not attempt to run into the ligament of Treitz secondary to degree of distention. I then further inspected the right lower quadrant area and I could find no particular focal area of adhesive band behind the mesentery of the small bowel but upon further inspection it appeared that the fat pad of the terminal ileum and the appendix made a focal type of pocket. It is not clear to me whether somehow the small bowel was partially lodged in there and a partial wall thickness type defect but I elected to do an appendectomy and a partial resection of that ileal fat pad to eliminate that defect as I carefully had looked for both groins for potential inguinal hernias did not see any femoral hernias did not see site that would suggest an obturator hernia. Other than this focal area could not see any other evidence of internal herniation where the bowel changed in caliber. Used a [place] scalpel to free the mesoappendix and then used a 45 mm standard height stapler to transect the appendix flush with the cecum. The pocket somew hat still remains so then I resected the fat pad of the terminal ileum using harmonic scalpel. In doing that I then illuminated that focal pocketing defect. Hemostasis was assured with a small piece of fibular. Small bowel all appeared to be viable and there was no bowel injury. That seem to be well-tolerated. The abdomen was allowed to deflate of the CO2. The appendix and small piece of fat were retrieved with with an Endo Catch bag and removed. The abdomen inflated with CO2. The fascia at the umbilicus approximated uoqpbu-eo-lyrro suture of 0 Vicryl. Skin is approximated with interrupted 4-0 Monocryl subdermal stitches. Steri-Strips Telfa OpSite dressings applied. Sponge instrument and needle counts were reported to the surgeon to be correct. Specimen appendix and fat pad of the terminal ileum. Drains none. Blood loss minimal. The patient was taken to the recovery room in satisfactory addition without apparent complication Twin Fragoso M.D., F.A.C.S. Surgeon: Twin Fragoso Type of Anesthesia: General and Local Anesthesiologist: Ricardo Kraft
[2022-12-01] MEDS: Bupivacaine 0.25% 30 ML Vial (15:22)
--- NOTE | 2022-12-01 15:22 | DCINST_ITS ---
Discharge Instructions Procedure General Surgery Diet Discharge Diet: Light diet - advance as tolerated (if you have questions about your diet instructions, please talk to you doctor.) Activity Discharge Activity: May Not Drive (for 3-5 days or while taking narcotic pain medicine.) May shower in (days): 1 Lifting Restrictions: 10 pounds Dressing / Incision Call your doctor if your incision/area has: Continuous Slow Oozing, Sudden Increased Bleeding, Increased Pain/ Swelling, Increased Redness and Foul Smelling Discharge Call your doctor if you observe: Fever of 101 or Higher Suture Line Care: Avoid Pulling/Pushing and Avoid Pinching/Bending Additional Dressing/Incision Instructions:: Change or remove dressing in 4 days. Leave steri-strips in place for 1 week. Follow Up Care Please Follow Up With: Twin Fragoso MD When: Call [phone] to make an appointment to be seen in about 10 days. Test Results: Test results from this visit will be discussed in further detail at your follow- up appointment, if applicable. Discharge Plan Admission Attending Provider: Twin Fragoso Primary Care Provider: Tim Yost Discharge Orders/Prescriptions Prescriptions: No Action aspirin 81 mg tablet,delayed release (DR/EC) 81 mg PO DAILY allopurinol 300 mg tablet 300 mg PO DAILY calcium carbonate 500 mg calcium (1,250 mg) tablet 500 mg PO DAILY omega-3 fatty acids [Fish Oil Concentrate] 1,000 mg capsule 1,000 mg PO DAILY multivitamin Tablet 1 tab PO DAILY tadalafil 20 mg tablet 20 mg PO DAILY PRN (Reason: ed) Hold Instructions: pt no longer taking Rx Instructions: administer approximately 30min before sexual activity; do not use more than 1 dose per 24hrs vcyor-ziruufmmh-srxmelf-water 30 mg-1 mg- 20 mcg/mL solution 1 ml intra-cavernosal DAILY PRN (Reason: nasal congestion) wjwm-ylxut-zze-D3-hyal-betito bor 750 mg-100 mg- 25 mcg tablet 1 tab PO DAILY famotidine 20 mg tablet 20 mg PO DAILY PRN (Reason: as needed for stomach pain) finasteride [Proscar] 5 mg tablet 5 mg PO DAILY celecoxib 200 MG capsule 200 mg PO DAILY tamsulosin 0.4 MG capsule 0.4 mg PO DAILY lisinopril 10 mg tablet 20 mg PO DAILY acetaminophen 500 MG tablet 500 - 1,000 mg PO Q6H PRN PRN (Reason: Pain Or Fever) Referrals / Follow Up: Tim Yost MD [Primary Care Provider] - Disposition Disposition (needs filled in before D/C Order can be placed): Home, Self Care
[2022-12-01] MEDS: Lactated Ringers 1,000 ML 50 ML IV (15:56)
[2022-12-01] MEDS: oxyCODONE 5 MG Tablet PO (21:00)
[2022-12-01] MEDS: Ondansetron 4 MG/2 ML Vial IV (21:01)
[2022-12-01] MEDS: Acetaminophen 500 MG Tablet PO (21:11)
[2022-12-02] VITALS (7 sets, daily range): BP systolic 90–113; BP diastolic 50–78; PULSE 60–68; RESP 16–18; TEMP 36.6–37.4; O2SAT 94–97; BMI 25.7
[2022-12-02] MEDS: oxyCODONE 5 MG Tablet PO (01:30)
--- NOTE | 2022-12-02 02:51 | NURSING ---
Ambulated in serr[place] x2 complete rounds with stand by assistance from this nurse.
[2022-12-02] MEDS: Lactated Ringers 1,000 ML 50 ML IV ×2 (05:33→23:07)
[2022-12-02] MEDS: Acetaminophen 500 MG Tablet PO ×4 (06:16→20:36)
--- NOTE | 2022-12-02 06:38 | PCM.PN.SRG ---
Subjective Subjective Patient feels that he is doing well. Pain is well controlled. No flatus or stool however Objective Data Objective Data Vital Signs: Vital Signs Temp Pulse Resp BP Pulse Ox O2 Del Method O2 Flow Rate 99.3 F H 66 18 92/50 L 94 Room Air 2 12/02/22 05:45 12/02/22 05:45 12/02/22 05:45 12/02/22 05:45 12/02/22 05:45 12/02/22 05:45 12/01/22 17:45 Oxygen Flow Rate (L/min) 2 Oxygen Delivery Method Room Air Weight: 189 lb 9.561 oz Body Mass Index (BMI) 25.7 Intake & Output: Intake and Output for Last 24 Hours 11/30/22 12/01/22 12/02/22 23:59 23:59 23:59 Intake Total 1350 / 1350 680.83 / 680.83 Output Total 60 / 60 Balance 1350 / 1350 620.83 / 620.83 Physical Exam Const oriented x3 GI GI Narrative: Abdomen softly distended, mild appropriate incisional tenderness, Assessment & Plan Assessment/Plan (1) Partial small bowel obstruction: PLAN: Patient appears stable. I encouraged him to try to avoid narcotics. He has a heating pad prescribed. I will encourage ambulation. We will reassess later today for possible resumption of bowel function. Twin Fragoso M.D., F.A.C.S.
[2022-12-02] MEDS: Allopurinol 300 MG Tablet PO (11:04)
[2022-12-02] MEDS: Aspirin E.C. 81 MG Tablet PO (11:04)
[2022-12-02] MEDS: Finasteride 5 MG Tablet PO (11:04)
[2022-12-02] MEDS: Celecoxib 200 MG Capsule PO (11:04)
[2022-12-02] MEDS: 0.9% Saline Lock 10 ML Syringe IV (20:36)
[2022-12-02] MEDS: Ondansetron 4 MG/2 ML Vial IV (20:36)
[2022-12-02] MEDS: Tamsulosin HCl 0.4 MG Capsule PO (23:07)
[2022-12-03 02:00] VITALS: BP 109/54; PULSE 95; RESP 18; TEMP 37.2; O2SAT 94
--- NOTE | 2022-12-03 06:30 | PCM.PN.SRG ---
Subjective Subjective Patient remains distended somewhat tender. No real nausea. No flatus or stool. Objective Data Objective Data Vital Signs: Vital Signs Temp Pulse Resp BP Pulse Ox O2 Del Method O2 Flow Rate 99 F 95 18 109/54 L 94 Room Air 2 12/03/22 02:00 12/03/22 02:00 12/03/22 02:00 12/03/22 02:00 12/03/22 02:00 12/03/22 02:00 12/01/22 17:45 Oxygen Flow Rate (L/min) 2 Oxygen Delivery Method Room Air Weight: 189 lb 9.561 oz Body Mass Index (BMI) 25.7 Intake & Output: Intake and Output for Last 24 Hours 12/01/22 12/02/22 12/03/22 23:59 23:59 23:59 Intake Total 1350 / 1350 2379.16 / 2379.16 150 / 150 Output Total 60 / 60 Balance 1350 / 1350 2319.16 / 2319.16 150 / 150 Physical Exam GI GI Narrative: Abdomen is distended, tympanitic, dressings are clean and dry Assessment & Plan Assessment/Plan (1) Partial small bowel obstruction: PLAN: Bowel function has not yet returned. The patient's preoperative symptoms were prolonged for over a week. Likely anticipate slow return of function. Twin Fragoso M.D., F.A.C.S.
[2022-12-03 08:00] VITALS: BP 101/55; PULSE 74; RESP 16; TEMP 36.9; O2SAT 94
[2022-12-03] MEDS: Allopurinol 300 MG Tablet PO (08:51)
[2022-12-03] MEDS: Aspirin E.C. 81 MG Tablet PO (08:52)
[2022-12-03] MEDS: Finasteride 5 MG Tablet PO (08:52)
[2022-12-03] MEDS: Celecoxib 200 MG Capsule PO (08:52)
--- NOTE | 2022-12-03 10:30 | CASEMGMT ---
SHORTY CM Readmission Note Previous Admission:11/27/22-11/28/22 Diagnosis:?SBO DC Disposition: Home with support Current Admission? Current Diagnosis: partial small bowel obstruction secondary to int hernia On index admission pt had a grastrogafin small bowel follow through demonstrating clear passage. Pt was dc'd after his diet was advanced. Pt seen on 12/01 in 's office with abd distension, pt had exploratory lap. Pt with SBO with suspected internal hernia created by appendix and terminal ileal fat pad. Pt is ambulating halls independently, present in room. Pt is awaiting return of bowel function. Pt denies any homegoing needs. DC Plan: Home with support
[2022-12-03 14:00] VITALS: BP 118/55; PULSE 81; RESP 16; TEMP 36.6; O2SAT 94
[2022-12-03] MEDS: Lactated Ringers 1,000 ML 50 ML IV (18:31)
[2022-12-03 20:00] VITALS: BP 116/64; PULSE 84; RESP 16; TEMP 37.3; O2SAT 92
[2022-12-03] MEDS: Acetaminophen 500 MG Tablet PO (20:47)
[2022-12-03] MEDS: 0.9% Saline Lock 10 ML Syringe IV ×2 (20:47→23:05)
[2022-12-03] MEDS: Tamsulosin HCl 0.4 MG Capsule PO (21:51)
[2022-12-03] MEDS: Ondansetron 4 MG/2 ML Vial IV (23:05)
[2022-12-04 02:00] VITALS: BP 148/68; PULSE 89; RESP 18; TEMP 36.9; O2SAT 94
[2022-12-04] MEDS: Oxymetazoline 0.05% 1 SPRAY SPRAY.BTL 2 SPRAY NASAL (06:49)
[2022-12-04] MEDS: 0.9% Saline Lock 10 ML Syringe IV ×2 (06:50→15:33)
[2022-12-04 06:54] LABS: Absolute Lymphocyte Count 0.57 X10^3/uL (0.83-4.51); Absolute Neutrophil Count 10.8 X10^3/uL (2.0-7.7); Basophil# 0.01 X10^3/uL; Basophil% 0.1 % (0-1); Eosinophil# 0.02 X10^3/uL; Eosinophils% 0.2 % (0-5); Hematocrit 37.8 % (40-54); Hemoglobin 12.4 g/dL (13.0-16.5); Lymphocyte # 0.57 X10^3/ul (0.83-4.51); Lymphocyte % 4.7 % (19-41); Mean Corp Hgb Conc 32.8 g/dL (32-36); Mean Corpuscular Hgb 29.1 pg (27.0-32.0); Mean Corpuscular Volume 88.7 fL (80-94); Mean Platelet Vol. 9.9 fl (6.2-12.0); Monocyte# 0.64 X10^3/uL; Monocyte% 5.3 % (0-10); NRBC Flagged by Analyzer 0 % (0-5); Neutrophil # 10.81 X10^3/uL (2.7-7.7); POSITIVE DIFFERENTIAL YES; Platelet Count 217 K/mm3 (150-450); RBC Distribution Width CV 14.2 % (11.6-14.6); RBC Distribution Width SD 45.7 fl (35.1-43.9); Red Blood Count 4.26 M/mm3 (4.6-6.2); White Blood Count 12.1 K/mm3 (4.4-11.0)
[2022-12-04 06:56] LABS: Differential Indicated SCAN CRITERIA MET
--- NOTE | 2022-12-04 07:10 | RAD_ITS ---
We are attempting to reach an attending provider to discuss findings. An addendum with communication details will be sent when the communication is complete. INDICATION: SBO -- KUB with both diaphragms for NG/OG Verification EXAMINATION/TECHNIQUE: X-RAY - XR Abdomen 1 View: Portable upright AP view of upper abdomen COMPARISON: Abdominal radiographs from 11/28/2022 FINDINGS: There is free air under right hemidiaphragm. Enteric tube tip at mid stomach. Dilated loops of small bowel again noted. Mildly elevated right hemidiaphragm. Heart normal size. Skeletal degenerative changes noted. RAD/Abdomen Single View (Portable) IMPRESSION: 1. Free abdominal air. Correlate clinically for any recent abdominal surgery, versus bowel perforation. Facility phlebotomy services representative is being contacted to retrieve additional clinical history. 2. Obstructive bowel gas pattern again noted. Electronically Signed: Norbert Meyer MD at 7:33 EDT ,
[2022-12-04 07:15] LABS: Differential Comment SCANNED
--- NOTE | 2022-12-04 07:16 | NURSING ---
Pt had 500cc emesis of green bile at [address] Fragoso rounded on patient and notified of emesis.16 [place] NG tube inserted and placed to intermittent suction at this time per physician orders. Large amount of green bile being suctioned. Pt tolerated well. Xray to verify placement was completed. Awaiting results.
[2022-12-04 08:00] VITALS: BP 137/70; PULSE 75; RESP 16; TEMP 36.7; O2SAT 92
--- NOTE | 2022-12-04 08:37 | PCM.PN.SRG ---
Subjective Subjective Patient is an 87 y/o M I am following in conjunction with Dr. Fragoso. Patient has not passed flatus or had a BM. He notes more abdominal discomfort. He notes more distention this morning. Objective Data Objective Data Vital Signs: Vital Signs Temp Pulse Resp BP Pulse Ox O2 Del Method O2 Flow Rate 98.1 F 75 16 137/70 H 92 Room Air 2 12/04/22 08:00 12/04/22 08:00 12/04/22 08:00 12/04/22 08:00 12/04/22 08:00 12/04/22 08:00 12/01/22 17:45 Oxygen Flow Rate (L/min) 2 Oxygen Delivery Method Room Air Weight: 189 lb 9.561 oz Body Mass Index (BMI) 25.7 Intake & Output: Intake and Output for Last 24 Hours 12/02/22 12/03/22 12/04/22 23:59 23:59 23:59 Intake Total 2379.16 / 2379.16 1420 / 1470 50 / 50 Output Total 60 / 60 2100 / 2100 Balance 2319.16 / 2319.16 1420 / 1470 -0 / -0 Lab / Micro Data 12/04/22 06:47 Labs: Laboratory Results - last 24 hr 12/04/22 06:47: WBC 12.1 H, RBC 4.26 L, Hgb 12.4 L, Hct 37.8 L, MCV 88.7, MCH 29.1, MCHC 32.8, RDW Std Deviation 45.7 H, RDW Coeff of Dayan 14.2, Plt Count 217, MPV 9.9, Immature Gran % (Auto) 0.700, Neut % (Auto) 89.0 H, Lymph % (Auto) 4.7 L, [place] % (Auto) 5.3, Eos % (Auto) 0.2, Baso % (Auto) 0.1, Absolute Neuts (auto) 10.8 H, Absolute Lymphs (auto) 0.57 L, Nucleated RBC % 0, Differential Comment SCANNED Radiography Diagnostic Testing: Radiology Impression KUB X-Ray 12/04/22 07:10 IMPRESSION: 1. Free abdominal air. Correlate clinically for any recent abdominal surgery, versus bowel perforation. Facility hospital sales representative is being contacted to retrieve additional clinical history. 2. Obstructive bowel gas pattern again noted. Electronically Signed: Norbert Meyer MD at 7:33 EDT , ADDENDUM: 12/04/22 0800 IMPRESSION: 1. Free abdominal air. Correlate clinically for any recent abdominal surgery, versus bowel perforation. Facility hospital sales representative is being contacted to retrieve additional clinical history. 2. Obstructive bowel gas pattern again noted. N.B. : The above Results were Read Back by Norbert Meyer MD to Wes Rascon RN, and understanding confirmed on 12/04/2022 07:53:36 (ET). Electronically Signed: Norbert Meyer MD at 7:33 EDT , Physical Exam GI GI Narrative: Abdomen- distended. Generalized tenderness. Hypoactive bowel sounds Assessment & Plan Assessment/Plan (1) Partial small bowel obstruction: PLAN: Reviewed patient with Dr. Fragoso NG tube was inserted this morning with 400 cc of bilious material output Plan to leave NG tube to suction for 6 hours after insertion and obtain a small bowel follow-through around noon If patient's status declines, he may need to return to the OR We will continue to closely monitor this patient Charges/Coding Visit Charges Inpatient E&M: [id number] [facility] L1
[2022-12-04 09:52] LABS: Anion Gap 9 (5-15); BUN 27 mg/dL (7-18); BUN/Creat Ratio 15.6 RATIO (10-20); Calcium,Total 10.5 mg/dL (8.5-10.1); Chloride 101 mmol/L (98-107); Creatinine, Serum 1.73 mg/dL (0.70-1.30); EST Glomerular Filtration Rate 40 mL/min (>60); Est Glom Filt Rate - Afr Amer 48 mL/min (>60); Estimated Creatinine Clearance 33.02 ml/min; Glucose 143 mg/dL (74-106); Potassium 4.4 mmol/L (3.5-5.1); Sodium Level 136 mmol/L (136-145)
[2022-12-04] MEDS: BENZOCAINE/MENTHOL 1 LOZENGE 2 LOZENGE MUCOUS MEM ×3 (11:59→18:23)
--- NOTE | 2022-12-04 12:00 | RAD_ITS ---
CLINICAL HISTORY: Male, 87 years old. Small bowel series PROCEDURE: Small bowel obstruction FLUOROSCOPY TIME (if supplied): ( ) minutes/seconds TECHNIQUE: (Following acquisition of KUB patient was administered 120 cc Gastrografin oral contrast through nasogastric tube followed by serial imaging in the anterior projection at 0,, 30, 60, 120 240 minutes Findings) Preliminary image demonstrates multiple distended air-filled loops of small bowel. Nasogastric tube is seen in the gastric fundus. Following injection of oral contras On the immediate image, there is contrast noted within the stomach at 30 minutes, there is contrast noted within the distended stomach, duodenum and proximal loops of jejunum. On the 60 minute image, there is persistence of contrast within the stomach and proximal small bowel.. On the 120 minute image, there has been progression of contrast into the mid small bowel appears mildly distended. On the 240 minutes image there is persistent distention of the proximal to mid small bowel with progression to the more distal small bowel. There is no contrast visualized within the ascending colon consistent with delayed transit time which may be consistent with small bowel obstruction. Recommend delayed image in approximately 6 to 12 hours RAD/Small Bowel Series Only IMPRESSION: Delayed transit time of contrast through the small bowel consistent with small bowel obstruction at the distal small bowel level. Delayed images at 6-12 hours recommended Electronically Signed: Edgardo Galindo MD at 20:36 EDT ,
[2022-12-04 14:00] VITALS: BP 154/70; PULSE 72; RESP 16; TEMP 36.8; O2SAT 94
[2022-12-04] MEDS: Lactated Ringers 1,000 ML 50 ML IV (15:30)
[2022-12-04] MEDS: Ondansetron 4 MG/2 ML Vial IV (16:38)
[2022-12-04 20:10] VITALS: BP 151/77; PULSE 75; RESP 18; TEMP 37.1; O2SAT 94
[2022-12-04] MEDS: Ketorolac 10 MG Tablet PO (20:10)
[2022-12-05] MEDS: Lactated Ringers 1,000 ML 100 ML IV (01:58)
[2022-12-05 02:00] VITALS: BP 122/67; PULSE 75; RESP 16; TEMP 36.6; O2SAT 94
--- NOTE | 2022-12-05 05:44 | RAD_ITS ---
HISTORY: Postop SBO. TECHNIQUE: XR Abdomen W/ Decub and/or Erect Views. COMPARISON: Prior day. FINDINGS: BOWEL GAS PATTERN: Nasogastric tube tip in the region of the stomach. Mild residual contrast in the stomach. Interval passage of contrast from small bowel. Mildly dilated small bowel loops, decreased from prior, and gaseous distention of colon with air-fluid levels. FREE AIR: Right greater than left subdiaphragmatic free air. SOFT TISSUES: [Pelvic postoperative change RAD/Abd Inc Decub and/or Erect IMPRESSION: Postoperative pneumoperitoneum. Mildly dilated small bowel decreased from prior with gaseous distention of colon from improving small bowel obstruction or postoperative ileus. Electronically Signed: Kat Perrin MD at 9:17 EDT ,
--- NOTE | 2022-12-05 05:46 | PN.SURG_ITS ---
Subjective Subjective Minimal nausea. No flatus or stool. Mild diffuse abdominal tenderness. Objective Data Objective Data Vital Signs: Vital Signs Temp Pulse Resp BP Pulse Ox O2 Del Method O2 Flow Rate 98 F 75 16 122/67 H 94 Room Air 2 12/05/22 02:00 12/05/22 02:00 12/05/22 02:00 12/05/22 02:00 12/05/22 02:00 12/05/22 02:00 12/01/22 17:45 Oxygen Flow Rate (L/min) 2 Oxygen Delivery Method Room Air Weight: 189 lb 9.561 oz Body Mass Index (BMI) 25.7 Intake & Output: Intake and Output for Last 24 Hours 12/03/22 12/04/22 12/05/22 23:59 23:59 23:59 Intake Total 1420 / 1470 1111.67 / 1111.67 923.33 / 923.33 Output Total 4000 / 5250 2750 / 2750 Balance 1420 / 1470 -2888.33 / -4138.33 -1826.67 / -1826.67 Lab / Micro Data 12/04/22 06:47 12/04/22 06:47 Labs: Laboratory Results - last 24 hr 12/04/22 06:47: WBC 12.1 H, RBC 4.26 L, Hgb 12.4 L, Hct 37.8 L, MCV 88.7, MCH 29.1, MCHC 32.8, RDW Std Deviation 45.7 H, RDW Coeff of Dayan 14.2, Plt Count 217, MPV 9.9, Immature Gran % (Auto) 0.700, Neut % (Auto) 89.0 H, Lymph % (Auto) 4.7 L, [place] % (Auto) 5.3, Eos % (Auto) 0.2, Baso % (Auto) 0.1, Absolute Neuts (auto) 10.8 H, Absolute Lymphs (auto) 0.57 L, Nucleated RBC % 0, Differential Comment SCANNED, Sodium 136, Potassium 4.4, Chloride 101, Carbon Dioxide 26.0, Anion Gap 9, BUN 27 H, Creatinine 1.73 H, Estim Creat Clear Calc 33.02, Est GFR (MDRD) Af Amer 48 L, Est GFR (MDRD) Non-Af 40 L, BUN/Creatinine Ratio 15.6, Glucose 143 H, Calcium 10.5 H Radiography Diagnostic Testing: Radiology Impression KUB X-Ray 12/04/22 07:10 IMPRESSION: 1. Free abdominal air. Correlate clinically for any recent abdominal surgery, versus bowel perforation. Facility open claims representative is being contacted to retrieve additional clinical history. 2. Obstructive bowel gas pattern again noted. Electronically Signed: Norbert Meyer MD at 7:33 EDT , ADDENDUM: 12/04/22 0800 IMPRESSION: 1. Free abdominal air. Correlate clinically for any recent abdominal surgery, versus bowel perforation. Facility open claims representative is being contacted to retrieve additional clinical history. 2. Obstructive bowel gas pattern again noted. N.B. : The above Results were Read Back by Norbert Meyer MD to Wes Rascon RN, and understanding confirmed on 12/04/2022 07:53:36 (ET). Electronically Signed: Norbert Meyer MD at 7:33 EDT , Small Bowel X-Ray 12/04/22 12:00 IMPRESSION: Delayed transit time of contrast through the small bowel consistent with small bowel obstruction at the distal small bowel level. Delayed images at 6-12 hours recommended Electronically Signed: Edgardo Galindo MD at 20:36 EDT , Physical Exam Const Constitutional Narrative: Patient frustrated but no acute distress. Irritated with his NG tube. Resp normal respiratory effort GI GI Narrative: Soft but distended. Not as taunt as yesterday. Absent bowel sounds Assessment & Plan Assessment/Plan (1) SBO (small bowel obstruction): PLAN: Persistent small bowel obstruction versus dense ileus. Nutrition now becomes a factor we will place a PICC line and initiate TPN I had an extensive discussion with the patient yesterday and this morning regarding options. It is not clear to me whether he has a persistent/recurrent small bowel obstruction or a very dense ileus. At the time of his laparoscopy what appeared to be a very clear demarcation site related to a suspected internal hernia seemingly was already resolving at the time of the procedure as the bowel caliber was already changing at the site of previous obstruction. Current imaging however suggest persistent obstruction although admittedly it is difficult to find whether this is a dense ileus We will recheck abdominal x-rays this morning. We will then consider or then exploratory laparotomy would be beneficial to this patient. Twin Fragoso M.D., F.A.C.S.
[2022-12-05 06:24] LABS: Absolute Lymphocyte Count 0.67 X10^3/uL (0.83-4.51); Absolute Neutrophil Count 5.3 X10^3/uL (2.0-7.7); Basophil# 0.01 X10^3/uL; Basophil% 0.1 % (0-1); Eosinophil# 0.17 X10^3/uL; Eosinophils% 2.5 % (0-5); Hematocrit 34.9 % (40-54); Hemoglobin 11.4 g/dL (13.0-16.5); Lymphocyte # 0.67 X10^3/ul (0.83-4.51); Lymphocyte % 9.8 % (19-41); Mean Corp Hgb Conc 32.7 g/dL (32-36); Mean Corpuscular Volume 88.8 fL (80-94); Monocyte# 0.65 X10^3/uL; Monocyte% 9.5 % (0-10); NRBC Flagged by Analyzer 0 % (0-5); Neutrophil # 5.31 X10^3/uL (2.7-7.7); Neutrophil % 77.7 % (47-70); Platelet Count 221 K/mm3 (150-450); RBC Distribution Width CV 13.7 % (11.6-14.6); RBC Distribution Width SD 44.8 fl (35.1-43.9); Red Blood Count 3.93 M/mm3 (4.6-6.2); White Blood Count 6.8 K/mm3 (4.4-11.0)
[2022-12-05] MEDS: BENZOCAINE/MENTHOL 1 LOZENGE 2 LOZENGE MUCOUS MEM ×3 (06:46→20:04)
[2022-12-05 06:58] LABS: Anion Gap 6 (5-15); BUN 34 mg/dL (7-18); BUN/Creat Ratio 20.6 RATIO (10-20); Calcium,Total 10.3 mg/dL (8.5-10.1); Chloride 102 mmol/L (98-107); Creatinine, Serum 1.65 mg/dL (0.70-1.30); EST Glomerular Filtration Rate 42 mL/min (>60); Est Glom Filt Rate - Afr Amer 51 mL/min (>60); Estimated Creatinine Clearance 34.62 ml/min; Glucose 129 mg/dL (74-106); Potassium 3.5 mmol/L (3.5-5.1); Sodium Level 139 mmol/L (136-145)
[2022-12-05 10:00] VITALS: BP 149/67; PULSE 84; RESP 16; TEMP 37.1; O2SAT 92
[2022-12-05] MEDS: Lactated Ringers 1,000 ML 150 ML IV ×2 (15:59→22:19)
--- NOTE | 2022-12-05 16:17 | CASEMGMT ---
RN CM into pt room, pt and very excited that pt has passed flatus. Pt with PICC line for TPN. Pt ambulating halls. Pt and deny any needs at this time. They state they are considering having surgery again.
[2022-12-05] MEDS: TPN - Clinimix E 8%-14% Soln 2,000 ML with Multivitamins 10 ML, Trace Elements 1 ML, Fo... 42 ML IV (16:45)
[2022-12-05 16:50] VITALS: BP 166/88; PULSE 76; RESP 18; TEMP 37.1; O2SAT 92
[2022-12-05 18:31] LABS: Bedside Glucose 148 mg/dL (74-106)
[2022-12-05 20:10] VITALS: BP 134/74; PULSE 66; RESP 16; TEMP 37.1; O2SAT 94
[2022-12-05] MEDS: Ketorolac 10 MG Tablet PO (22:20)
[2022-12-06 02:10] VITALS: BP 148/62; PULSE 61; RESP 16; TEMP 36.6; O2SAT 94
[2022-12-06] MEDS: Lactated Ringers 1,000 ML 150 ML IV (05:00)
[2022-12-06] MEDS: BENZOCAINE/MENTHOL 1 LOZENGE 2 LOZENGE MUCOUS MEM ×4 (05:21→22:32)
[2022-12-06 06:00] VITALS: BMI 25.7
[2022-12-06 06:20] LABS: Bedside Glucose 142 mg/dL (74-106)
[2022-12-06 06:20] LABS: Bedside Glucose 153 mg/dL (74-106)
[2022-12-06 06:48] LABS: ALB/GLOB Ratio 0.6 RATIO (0.9-2.4); AST(SGOT) 10 U/L (15-37); Alanine Aminotransfer ALT/SGPT 14 U/L (16-61); Albumin, Serum 2.2 g/dL (3.2-5.0); Alkaline Phosphatase 52 U/L (45-117); Anion Gap 3 (5-15); BUN 36 mg/dL (7-18); BUN/Creat Ratio 28.6 RATIO (10-20); Calcium,Total 9.5 mg/dL (8.5-10.1); Chloride 107 mmol/L (98-107); Creatinine, Serum 1.26 mg/dL (0.70-1.30); EST Glomerular Filtration Rate 58 mL/min (>60); Est Glom Filt Rate - Afr Amer 70 mL/min (>60); Estimated Creatinine Clearance 45.34 ml/min; Globulin 3.5 g/dL (2.2-4.2); Glucose 148 mg/dL (74-106); Potassium 3.7 mmol/L (3.5-5.1); Protein, Total 5.7 g/dL (6.4-8.2); Sodium Level 141 mmol/L (136-145)
--- NOTE | 2022-12-06 07:03 | PN.SURG_ITS ---
Subjective Subjective Patient still some occasional flatus. Patient still does have some mild abdominal pain may be a little better or about the same. NG only put out about 300 overnight. Objective Data Objective Data Vital Signs: Vital Signs Temp Pulse Resp BP Pulse Ox O2 Del Method O2 Flow Rate 98 F 61 16 148/62 H 94 Room Air 2 12/06/22 02:10 12/06/22 02:10 12/06/22 02:10 12/06/22 02:10 12/06/22 02:10 12/06/22 02:10 12/01/22 17:45 Oxygen Flow Rate (L/min) 2 Oxygen Delivery Method Room Air Weight: 189 lb 9.561 oz Body Mass Index (BMI) 25.7 Intake & Output: Intake and Output for Last 24 Hours 12/04/22 12/05/22 12/06/22 23:59 23:59 23:59 Intake Total 1111.67 / 1111.67 3758.33 / 3788.33 1030 / 1030 Output Total 4000 / 5250 3275 / 3775 850 / 850 Balance -2888.33 / -4138.33 483.33 / 13.33 180 / 180 Lab / Micro Data 12/05/22 06:09 12/06/22 05:50 Labs: Laboratory Results - last 24 hr 12/05/22 18:10: POC Glucose 148 H 12/05/22 23:28: POC Glucose 153 H 12/06/22 05:19: POC Glucose 142 H 12/06/22 05:50: Sodium 141, Potassium 3.7, Chloride 107, Carbon Dioxide 31.0, Anion Gap 3 L, BUN 36 H, Creatinine 1.26, Estim Creat Clear Calc 45.34, Est GFR (MDRD) Af Amer 70, Est GFR (MDRD) Non-Af 58 L, BUN/Creatinine Ratio 28.6 H, Glucose 148 H, Calcium 9.5, Total Bilirubin 0.70, AST 10 L, ALT 14 L, Alkaline Phosphatase 52, Total Protein 5.7 L, Albumin 2.2 L, Globulin 3.5, A lbumin/Globulin Ratio 0.6 L Radiography Diagnostic Testing: Radiology Impression Abdomen X-Ray 12/05/22 05:44 IMPRESSION: Postoperative pneumoperitoneum. Mildly dilated small bowel decreased from prior with gaseous distention of colon from improving small bowel obstruction or postoperative ileus. Electronically Signed: Kat Perrin MD at 9:17 EDT , Physical Exam Const oriented x3 and no apparent distress Resp normal respiratory effort Cardio regular rate GI soft to palpation Inspection: Negative for abdominal distention Palpation: tender other (Mild in the mid abdomen/right lower quadrant, no peritoneal signs) Extremity normal to inspection Assessment & Plan Assessment/Plan (1) SBO (small bowel obstruction): PLAN: Persistent small bowel obstruction versus dense ileus. Patient has had some occasional gas. Patient NG is also decreased from previous. We will continue TPN and NG. Continue ambulation. Jessie Negrete M.D. Pager: [phone] [facility] [address] [place] [address], [facility], [address] [place] [id number] Office: [phone]
[2022-12-06 08:45] VITALS: BP 158/71; PULSE 51; RESP 16; TEMP 37.2; O2SAT 92
[2022-12-06 08:58] LABS: Phosphorus 2.8 mg/dL (2.5-4.9)
--- NOTE | 2022-12-06 09:09 | NURSING ---
Pt states he has walked 5 times in the serrato already this morning. It is marked on the board that he walked 5 times. Pt encouraged to keep using his I.S hourly and 10 reps. Pt assisted by this RN into chair at this time and told pt that he should also be sitting in the chair at least 3 times during the day along with walking. PT and his understand. BP 158/71, HR 51. Pt and his state that 51 is my normal. This RN talked with Dr. Negrete about restarting his Zestril 20mg daily, Dr. Negrete wants it restarted.
--- NOTE | 2022-12-06 09:25 | NURSING ---
Update given to Dr. Fragoso at this time.
[2022-12-06] MEDS: Enoxaparin 40 MG/0.4 ML Syringe SC (11:40)
[2022-12-06] MEDS: Lisinopril 20 MG Tablet PO (11:40)
--- NOTE | 2022-12-06 12:11 | NURSING ---
Walked around the entire 3rd floor unit 5 times at this time. Was sitting in chair and now back into bed. NG clamped since recently had Zestril.
[2022-12-06 12:25] LABS: Bedside Glucose 133 mg/dL (74-106)
[2022-12-06 16:00] VITALS: PULSE 52; O2SAT 95
[2022-12-06] MEDS: Lactated Ringers 1,000 ML 90 ML IV ×2 (16:19→23:54)
[2022-12-06] MEDS: TPN - Clinimix E 8%-14% Soln 2,000 ML with Multivitamins 10 ML, Trace Elements 1 ML, Fo... 63 ML IV (17:16)
[2022-12-06 17:31] VITALS: BP 164/76; PULSE 52; RESP 18; TEMP 37.1; O2SAT 95
[2022-12-06 17:46] LABS: Bedside Glucose 122 mg/dL (74-106)
--- NOTE | 2022-12-06 18:30 | NURSING ---
Pt up and went for another walk. Ng back to [facility] now after walk in serrato.
[2022-12-06 22:00] VITALS: BP 162/77; PULSE 66; RESP 16; TEMP 37.6; O2SAT 93
[2022-12-07] VITALS (9 sets, daily range): BP systolic 106–178; BP diastolic 60–92; PULSE 52–60; RESP 18–20; TEMP 36.7–37.2; O2SAT 94–95; BMI 26.9
[2022-12-07 00:09] LABS: Bedside Glucose 156 mg/dL (74-106)
[2022-12-07] MEDS: Ondansetron 4 MG/2 ML Vial IV ×2 (02:08→22:13)
[2022-12-07] MEDS: 0.9% Saline Lock 10 ML Syringe IV ×4 (02:08→17:05)
[2022-12-07 06:39] LABS: ALB/GLOB Ratio 0.6 RATIO (0.9-2.4); AST(SGOT) 11 U/L (15-37); Alanine Aminotransfer ALT/SGPT 15 U/L (16-61); Albumin, Serum 2.1 g/dL (3.2-5.0); Alkaline Phosphatase 51 U/L (45-117); Anion Gap 3 (5-15); BUN 31 mg/dL (7-18); Calcium,Total 9.4 mg/dL (8.5-10.1); Chloride 111 mmol/L (98-107); EST Glomerular Filtration Rate 75 mL/min (>60); Est Glom Filt Rate - Afr Amer 91 mL/min (>60); Estimated Creatinine Clearance 57.12 ml/min; Globulin 3.4 g/dL (2.2-4.2); Glucose 155 mg/dL (74-106); Potassium 4.2 mmol/L (3.5-5.1); Protein, Total 5.5 g/dL (6.4-8.2); Sodium Level 143 mmol/L (136-145)
[2022-12-07 07:22] LABS: Bedside Glucose 139 mg/dL (74-106)
--- NOTE | 2022-12-07 09:15 | PCM.PN.SRG ---
Subjective Subjective Patient still been having some flatus NG overnight put out about 200 looks like about 500 since 7:00 yesterday night down the canister. It was ambulating yesterday. Patient's blood pressure was little higher to give his home lisinopril but he did have a bit of coughing with this which per his he does also have that at home. Objective Data Objective Data Vital Signs: Vital Signs Temp Pulse Resp BP Pulse Ox O2 Del Method O2 Flow Rate 99.7 F H 66 16 162/77 H 93 Nasal Cannula 2 12/06/22 22:00 12/06/22 22:00 12/06/22 22:00 12/06/22 22:00 12/06/22 22:00 12/06/22 22:30 12/06/22 22:30 Oxygen Flow Rate (L/min) 2 Oxygen Delivery Method Nasal Cannula Weight: 198 lb 6.656 oz Body Mass Index (BMI) 26.9 Intake & Output: Intake and Output for Last 24 Hours 12/05/22 12/06/22 12/07/22 23:59 23:59 23:59 Intake Total 3758.33 / 3788.33 3801.5 / 3831.5 120 / 120 Output Total 3275 / 3775 1200 / 1625 875 / 875 Balance 483.33 / 13.33 2601.5 / 2206.5 -755 / -755 Lab / Micro Data 12/05/22 06:09 12/07/22 05:45 Labs: Laboratory Results - last 24 hr 12/06/22 12:06: POC Glucose 133 H 12/06/22 16:39: POC Glucose 122 H 12/06/22 23:46: POC Glucose 156 H 12/07/22 05:45: Sodium 143, Potassium 4.2, Chloride 111 H, Carbon Dioxide 29.0, Anion Gap 3 L, BUN 31 H, Creatinine 1.00, Estim Creat Clear Calc 57.12, Est GFR (MDRD) Af Amer 91, Est GFR (MDRD) Non-Af 75, BUN/Creatinine Ratio 31.0 H, Glucose 155 H, Calcium 9.4, Total Bilirubin 0.80, AST 11 L, ALT 15 L, Alkaline Phosphatase 51, Total Protein 5.5 L, Albumin 2.1 L, Globulin 3.4, Albumin/Globulin Ratio 0.6 L 12/07/22 06:31: POC Glucose 139 H Physical Exam Const oriented x3 and no apparent distress Resp normal respiratory effort Cardio regular rate GI soft to palpation Inspection: Negative for abdominal distention Palpation: tender other (Mild in the mid abdomen/right lower quadrant, no peritoneal signs) Extremity normal to inspection Assessment & Plan Assessment/Plan (1) SBO (small bowel obstruction): PLAN: Persistent small bowel obstruction versus dense ileus. Patient has continued to have flatus. Patient's NG may be about 200 overnight improved from yesterday. We will continue TPN and NG. Continue ambulation. Jessie Negrete M.D. Pager: [phone] [facility] [address] [place] [address], [facility], [address] [place] [address] Office: [phone]
[2022-12-07] MEDS: Enoxaparin 40 MG/0.4 ML Syringe SC (11:18)
[2022-12-07] MEDS: Lactated Ringers 1,000 ML 30 ML IV (11:18)
[2022-12-07] MEDS: Furosemide 20 MG/2 ML VIAL IV (11:18)
[2022-12-07] MEDS: BENZOCAINE/MENTHOL 1 LOZENGE 2 LOZENGE MUCOUS MEM ×2 (11:27→17:05)
[2022-12-07 13:26] LABS: Bedside Glucose 163 mg/dL (74-106)
[2022-12-07] MEDS: hydrALAZINE 20 MG/ML Vial IV ×2 (15:45→17:05)
--- NOTE | 2022-12-07 16:05 | NURSING ---
Pt has walked halls twice thus far today but went around the unit 5 times each so total of 10 times. Pt was in the chair this morning/afternoon. NG flushed per orders. Pt urinating large amts of clr yellow urine.
[2022-12-07] MEDS: TPN - Clinimix E 8%-14% Soln 2,000 ML with Multivitamins 10 ML, Trace Elements 1 ML, Fo... 84 ML IV (17:03)
[2022-12-07 17:31] LABS: Bedside Glucose 126 mg/dL (74-106)
[2022-12-08 01:20] LABS: Bedside Glucose 144 mg/dL (74-106)
[2022-12-08 04:29] VITALS: BP 177/76; PULSE 69
[2022-12-08] MEDS: hydrALAZINE 20 MG/ML Vial IV (04:29)
[2022-12-08 04:53] VITALS: BP 176/77; PULSE 69; RESP 18; TEMP 37.2; O2SAT 95
--- NOTE | 2022-12-08 05:00 | RAD_ITS ---
EXAM: XR ABDOMEN, 2 VIEWS CLINICAL INDICATION: sbo TECHNIQUE: Frontal view of the abdomen/pelvis with upright view of the abdomen. COMPARISON: No relevant prior studies available. FINDINGS: LOWER THORAX: No acute pathology. INTRAPERITONEAL SPACE: No free air. GASTROINTESTINAL TRACT: Oral contrast material is seen throughout the colon. Non-obstructive. No bowel or stomach distention. ORGANS: Unremarkable as visualized. No organomegaly. No abnormal calcifications. BONES/JOINTS: Degenerative changes in the lumbar spine. SOFT TISSUES: No acute pathology. TUBES, LINES AND DEVICES: NG tube tip in the stomach but the proximal port is near the gastroesophageal junction. RAD/Abd Inc Decub and/or Erect IMPRESSION: 1. Oral contrast material is seen throughout the colon. 2. No small bowel obstruction. 3. NG tube tip in the stomach but the proximal port is near the gastroesophageal junction. Consider advancing 8 cm. 4. Degenerative changes in the lumbar spine. Electronically Signed: Fernando Rodarte MD at 5:41 EDT ,
[2022-12-08 05:29] VITALS: BMI 25.9
[2022-12-08 06:00] VITALS: BMI 26.0
--- NOTE | 2022-12-08 06:27 | PCM.PN.SRG ---
Subjective Subjective Patient has continued to have flatus. Mostly small amounts. Infrequent larger amounts. No stools. He denies any abdominal pain. Denies nausea. Objective Data Objective Data Vital Signs: Vital Signs Temp Pulse Resp BP Pulse Ox O2 Del Method O2 Flow Rate 99.0 F 69 18 176/77 H 95 Room Air 2 12/08/22 04:53 12/08/22 04:53 12/08/22 04:53 12/08/22 04:53 12/08/22 04:53 12/08/22 04:53 12/06/22 22:30 Oxygen Flow Rate (L/min) 2 Oxygen Delivery Method Room Air Weight: 191 lb 5.78 oz Body Mass Index (BMI) 25.9 Intake & Output: Intake and Output for Last 24 Hours 12/06/22 12/07/22 12/08/22 23:59 23:59 23:59 Intake Total 3801.5 / 3831.5 2932.75 / 2932.75 30 / 30 Output Total 1200 / 1625 2375 / 2975 800 / 800 Balance 2601.5 / 2206.5 557.75 / -42.25 -770 / -770 Lab / Micro Data 12/05/22 06:09 12/07/22 05:45 Labs: Laboratory Results - last 24 hr 12/07/22 05:45: Sodium 143, Potassium 4.2, Chloride 111 H, Carbon Dioxide 29.0, Anion Gap 3 L, BUN 31 H, Creatinine 1.00, Estim Creat Clear Calc 57.12, Est GFR (MDRD) Af Amer 91, Est GFR (MDRD) Non-Af 75, BUN/Creatinine Ratio 31.0 H, Glucose 155 H, Calcium 9.4, Total Bilirubin 0.80, AST 11 L, ALT 15 L, Alkaline Phosphatase 51, Total Protein 5.5 L, Albumin 2.1 L, Globulin 3.4, Albumin/Globulin Ratio 0.6 L 12/07/22 06:31: POC Glucose 139 H 12/07/22 12:57: POC Glucose 163 H 12/07/22 17:11: POC Glucose 126 H 12/08/22 01:02: POC Glucose 144 H Radiography Diagnostic Testing: Radiology Impression Abdomen X-Ray 12/08/22 05:00 IMPRESSION: 1. Oral contrast material is seen throughout the colon. 2. No small bowel obstruction. 3. NG tube tip in the stomach but the proximal port is near the gastroesophageal junction. Consider advancing 8 cm. 4. Degenerative changes in the lumbar spine. Electronically Signed: Fernando Rodarte MD at 5:41 EDT , Physical Exam Const Constitutional Narrative: Patient is alert no distress. Happy to have his NG tube removed. GI GI Narrative: Softly distended, bowel sounds very low-grade and nonspecific. No focal tenderness. Assessment & Plan Assessment/Plan (1) Partial small bowel obstruction: PLAN: Clinically the patient appears to be improved from the admission diagnosis of small bowel obstruction to the postoperative diagnosis of dense ileus.? Still exists as to whether the patient has a persistent partial SBO. We will start clear liquids. If he does well with breakfast then will not reorder the TPN. If he does not do well with breakfast then we will continue the TPN and at that time consider potential for exploratory laparotomy. He has had an opportunity to ask and have questions answered. Clinically he appears to be markedly improved. Twin Fragoso M.D., F.A.C.S.
[2022-12-08 08:30] VITALS: BP 147/64; PULSE 62; RESP 18; TEMP 37.1; O2SAT 95
[2022-12-08] MEDS: Enoxaparin 40 MG/0.4 ML Syringe SC (08:40)
[2022-12-08] MEDS: Lisinopril 10 MG Tablet PO (08:40)
[2022-12-08 12:14] LABS: Bedside Glucose 162 mg/dL (74-106)
--- NOTE | 2022-12-08 13:00 | PCM.PN.BLA ---
Progress Note Patient evaluated on diet. Per nursing he took 2-3 small bites of his jello and feels slight nausea, so he stopped. No abdominal pain. Plan to to renew TPN order for another day.
[2022-12-08] MEDS: TPN - Clinimix E 8%-14% Soln 2,000 ML with Multivitamins 10 ML, Trace Elements 1 ML, Fo... 84 ML IV (15:08)
[2022-12-08] MEDS: Fat Emulsions 20% 250 ML IV (15:08)
[2022-12-08 15:10] VITALS: BP 150/62; PULSE 64; RESP 18; TEMP 37.1; O2SAT 94
[2022-12-08 17:43] LABS: Bedside Glucose 141 mg/dL (74-106)
[2022-12-08 21:10] VITALS: BP 147/65; PULSE 61; RESP 15; TEMP 37; O2SAT 95
[2022-12-08] MEDS: Ondansetron 4 MG/2 ML Vial IV (21:39)
[2022-12-08] MEDS: 0.9% Saline Lock 10 ML Syringe IV (21:39)
[2022-12-09] VITALS (8 sets, daily range): BP systolic 120–197; BP diastolic 55–81; PULSE 46–74; RESP 14–18; TEMP 36.4–37.1; O2SAT 92–99; BMI 26.3; BMI 25.7
[2022-12-09 00:20] LABS: Bedside Glucose 157 mg/dL (74-106)
--- NOTE | 2022-12-09 04:44 | NURSING ---
Pt refusing to wear SCDs at this time.
--- NOTE | 2022-12-09 05:00 | RAD_ITS ---
EXAM: XR ABDOMEN, 2 VIEWS CLINICAL INDICATION: small bowel obstruction small bowel obstruction TECHNIQUE: Frontal view of the abdomen/pelvis with upright view of the abdomen. COMPARISON: Abdominal x-ray 02/07/2023 and 02/04/2023 x-ray small bowel series 12/04/2022. FINDINGS: LOWER THORAX: No acute pathology. INTRAPERITONEAL SPACE: No free air. GASTROINTESTINAL TRACT: There is redemonstration of radiodense contrast material in the colon. There is some interval clearance of contrast from the colon compared to last previous study. There is increased prominence of gas in small bowel loops, which raises concern for recurrent partial obstruction or small bowel ileus. ORGANS: Unremarkable as visualized. No organomegaly. No abnormal calcifications. BONES/JOINTS: There are multilevel degenerative changes in the visualized spine. SOFT TISSUES: There are surgical clips along the left side of the pelvis. TUBES, LINES AND DEVICES: The previously demonstrated nasogastric tube has apparently been removed. RAD/Abd Inc Decub and/or Erect IMPRESSION: Modest interval increase in small bowel gas compared to last previous study. This raises concern for small bowel ileus or recurrent partial obstruction. Electronically Signed: Ayan Car MD at 4:59 EDT ,
--- NOTE | 2022-12-09 05:40 | PCM.PN.SRG ---
Subjective Subjective Patient has had very small amounts of stool. Some flatus. He had recurrent nausea yesterday and required antiemetic. Objective Data Objective Data Vital Signs: Vital Signs Temp Pulse Resp BP Pulse Ox O2 Del Method O2 Flow Rate 98.4 F 62 18 122/55 H 96 Room Air 2 12/09/22 03:45 12/09/22 03:45 12/09/22 03:45 12/09/22 03:45 12/09/22 03:45 12/09/22 03:45 12/06/22 22:30 Oxygen Flow Rate (L/min) 2 Oxygen Delivery Method Room Air Weight: 192 lb 8 oz Body Mass Index (BMI) 26.0 Intake & Output: Intake and Output for Last 24 Hours 12/07/22 12/08/22 12/09/22 23:59 23:59 23:59 Intake Total 2932.75 / 2932.75 2612.5 / 3112.5 750 / 750 Output Total 2375 / 2975 800 / 1600 800 / 800 Balance 557.75 / -42.25 1812.5 / 1512.5 -50 / -50 Lab / Micro Data 12/05/22 06:09 12/07/22 05:45 Labs: Laboratory Results - last 24 hr 12/08/22 11:49: POC Glucose 162 H 12/08/22 17:22: POC Glucose 141 H 12/09/22 00:01: POC Glucose 157 H Radiography Diagnostic Testing: Radiology Impression Abdomen X-Ray 12/08/22 05:00 IMPRESSION: 1. Oral contrast material is seen throughout the colon. 2. No small bowel obstruction. 3. NG tube tip in the stomach but the proximal port is near the gastroesophageal junction. Consider advancing 8 cm. 4. Degenerative changes in the lumbar spine. Electronically Signed: Fernando Rodarte MD at 5:41 EDT , Abdomen X-Ray 12/09/22 05:00 IMPRESSION: Modest interval increase in small bowel gas compared to last previous study. This raises concern for small bowel ileus or recurrent partial obstruction. Electronically Signed: Ayan Car MD at 4:59 EDT , Physical Exam GI GI Narrative: Abdomen remains mildly distended. Bowel sounds with some tinkles and rushes. Assessment & Plan Assessment/Plan (1) Partial small bowel obstruction: PLAN: Partial small bowel obstruction absolutely feeling resolved. This morning's abdominal x-rays demonstrate recurrent distention of small bowel. The difference between yesterday today was NG tube removal and initiation of clear liquids. Although the patient has had some flatus he also has had nausea. Though the etiology is not clear I suspect a persistent partial small bowel obstruction. I have proposed with the patient exploratory laparotomy. This potentially could require a bowel resection. This process based upon what was identified at his first operation should be resolved. Extensively have discussed this with the patient. He is very much hoping not to have an NG tube replaced but I have cautioned him that this may be required. We will place him on the operating room schedule and proceed pending OR timing.
[2022-12-09 06:57] LABS: Absolute Lymphocyte Count 0.96 X10^3/uL (0.83-4.51); Basophil# 0.04 X10^3/uL; Basophil% 0.6 % (0-1); Eosinophil# 0.42 X10^3/uL; Eosinophils% 5.9 % (0-5); Hematocrit 33.1 % (40-54); Hemoglobin 10.4 g/dL (13.0-16.5); Lymphocyte # 0.96 X10^3/ul (0.83-4.51); Lymphocyte % 13.5 % (19-41); Mean Corp Hgb Conc 31.4 g/dL (32-36); Mean Corpuscular Hgb 28.8 pg (27.0-32.0); Mean Corpuscular Volume 91.7 fL (80-94); Mean Platelet Vol. 10.2 fl (6.2-12.0); Monocyte# 0.63 X10^3/uL; Monocyte% 8.8 % (0-10); NRBC Flagged by Analyzer 0 % (0-5); Neutrophil # 4.95 X10^3/uL (2.7-7.7); Neutrophil % 69.4 % (47-70); Platelet Count 249 K/mm3 (150-450); RBC Distribution Width CV 14.4 % (11.6-14.6); RBC Distribution Width SD 48.2 fl (35.1-43.9); Red Blood Count 3.61 M/mm3 (4.6-6.2); White Blood Count 7.1 K/mm3 (4.4-11.0)
[2022-12-09 06:58] LABS: Bedside Glucose 134 mg/dL (74-106)
[2022-12-09 07:12] LABS: International Normalized Ratio 1.1; Prothrombin Time (Protime)PT. 14.3 SECONDS (11.7-14.9)
[2022-12-09 07:13] LABS: Partial Thromboplast Time 35.2 Seconds (24.1-36.2)
--- NOTE | 2022-12-09 09:15 | COL_PTH ---
PATIENT: CHACE ARMAS LOC: MS3 U#:[id number] AGE/SX: 87/M ROOM: OK317 RE12/02/[address]: Dr. Twin Fragoso MD : [id number] BED: 1 DIS: 12/16/2022 SPEC #: [id number] RECD: 12/10/22 07:52 STATUS: MANUELA HANSEN #: [id number] DORINDA: 12/09/22 09:[address]: Twin Fragoso DEPT: SURGICAL PATHOLOGY RECD BY: Ebony Beck ENTERED: 12/10/22 10:43 SP TYPE: COLON OTHR DR: Dr. Tim Yost MD Tissues: Colon, NOS Procedures: Surgery Specimen Level V HEADER OPERATION: Exploratory laparotomy, SBO, lysis of adhesions PRE-OP DIAGNOSIS: Partial small bowel obstruction TISSUE SUBMITTED: Section of ileum MICROSCOPIC DIAGNOSIS Small bowel, segmental resection: Focal mucosal ulceration with associated acute and chronic inflammation and granulation. Vascular congestion of serosa. Margins of excision with no pathologic change. Perienteric fibrofatty tissue with vascular congestion. AM:ethel 12/12/2022 COMMENT Case has been reviewed in consultation with Dr. King who concurs with the above diagnosis. IDC:[email or web address] MICROSCOPIC DESCRIPTION Slides are reviewed. GROSS DESCRIPTION Received in fixative is one container labeled with the patient's name and designated section of ileum. The specimen consists of a segment of ileum with attached mesentery measuring 6.0 cm in length. Mesenteric tissue measures up to 2.0 cm in width. Central area shows slight narrowing. A suture is present at the center portion of the specimen. This area is inked black. Also present in the container is a separate small piece of bowel tissue with multiple marina measuring 3.0 x 1.0 x 0.5 cm. No mass lesion is identified. Sections will be submitted after fixation. / SJ:ethel 12/10/2022 The central narrow portion of ileum is 2.0 cm away from the resection margin. No mucosal lesion is identified. Area of narrowing shows focal ulceration. Sections of the mesenteric tissue do not reveal any obviously enlarged lymph node. Overnight Associate sections are submitted in six cassettes as follows: 1??detached piece of tissue, possible donut, 2 - resection margin, 3 - central narrow portion of the small intestine with adjacent tissue, 4-6 - mesenteric tissue. / SJ:ethel 12/11/2022 TC:2 CPT: 61828
[2022-12-09 12:01] LABS: Bedside Glucose 127 mg/dL (74-106)
[2022-12-09] MEDS: Lactated Ringers 1,000 ML 15 ML IV ×2 (14:36→17:44)
--- NOTE | 2022-12-09 16:32 | PCM.OPRPT ---
Report of Operation Date of Procedure: 12/09/22 Pre-Operative Diagnosis: Persistent partial small bowel obstruction Post-Operative Diagnosis: Intra-abdominal adhesions. Focal area of ileal wall thickening of undetermined etiology Surgery/Procedure Performed:: Exploratory laparotomy with lysis of adhesions and ileal enterectomy with [id number] anastomosis Description of Surgical Findings:: Timeout and informed consent was obtained 87-year-old gentleman was taken to the operating placed on the table underwent general endotracheal intubation esthesia the abdomen sterilely prepped and draped cefotetan 2 g given intravenously the previous vertical supraumbilical incision was extended down through the umbilicus direct access was gained to the abdomen wound protector was placed exploration revealed decompressed distal small bowel this was traced all the way to the ileocecal valve and then upon retracing it it appeared that there was an area of deep location were externally the back appeared to be normal however on palpation there was a thickened area. I elected to do an enterectomy. Mesentery was transected with hemostats and 3-0 silk ligatures. 7575 mm stapler was used to transect the bowel movement moving a section approximately 8 cm long. The bowel was placed [id number] and a functional end-to-end anastomosis created by making enterotomies and using the 75 mm stapler. The enterotomies were closed with a TA 60 stapler. I inverted that with a running 3-0 silk. The mesenteric trap was closed with a running 3-0 chromic. Further expiration revealed more inflammation of the small bowel more proximally with a small adhesive band to an acutely inflamed loop. The etiology to this degree of inflammation not determined unless the bowel was beneath the incision. The bowel appeared to be healthy. I placed the bowel within the abdomen. Because of the previous open cholecystectomy could not mobilize any omentum. I closed the midline fascia with a running #1 Prolene. Skin edges were approximated running subicular 4 Monocryl. Steri-Strips Telfa OpSite dressings applied. Sponge and instrument and needle counts were reported surgeon to be correct. The ele-incisional areas anesthetized with 30 cc of 0.5% Marcaine. Specimen section of ileum. Drains none. Blood loss minimal. The patient was taken to the recovery room in satisfied condition without apparent complication. Twin Fragoso M.D., F.A.C.S. Surgeon: Twin Fragoso Type of Anesthesia: General and Local
[2022-12-09] MEDS: Bupivacaine Mpf 0.5% 30 ML VIAL (16:36)
[2022-12-09] MEDS: TPN - Clinimix E 8%-14% Soln 2,000 ML with Multivitamins 10 ML, Trace Elements 1 ML, Fo... 84 ML IV (18:55)
[2022-12-09 19:21] LABS: Bedside Glucose 139 mg/dL (74-106)
[2022-12-09] MEDS: Ondansetron 4 MG/2 ML Vial IV (22:25)
--- NOTE | 2022-12-09 22:30 | NURSING ---
Patient ambulated two full laps around nursing unit.
[2022-12-10 00:30] LABS: Bedside Glucose 211 mg/dL (74-106)
[2022-12-10 02:00] VITALS: BP 152/76; PULSE 73; RESP 18; TEMP 36.7; O2SAT 97
[2022-12-10 02:29] VITALS: BMI 25.7
[2022-12-10 06:29] VITALS: BMI 25.7
[2022-12-10] MEDS: Morphine 2 MG/ML Syringe IV ×7 (06:33→21:12)
[2022-12-10] MEDS: 0.9% Saline Lock 10 ML Syringe IV ×6 (06:34→21:11)
--- NOTE | 2022-12-10 06:40 | PCM.PN.SRG ---
Subjective Subjective Patient is very painful this morning. He has been urinating frequently. He is not very happy Objective Data Objective Data Vital Signs: Vital Signs Temp Pulse Resp BP Pulse Ox O2 Del Method O2 Flow Rate 98.0 F 73 18 152/76 H 97 Room Air 2 12/10/22 02:00 12/10/22 02:00 12/10/22 02:00 12/10/22 02:00 12/10/22 02:00 12/10/22 02:45 12/06/22 22:30 Oxygen Flow Rate (L/min) 2 Oxygen Delivery Method Room Air Weight: 194 lb 7.163 oz Body Mass Index (BMI) 26.3 Intake & Output: Intake and Output for Last 24 Hours 12/08/22 12/09/22 12/10/22 23:59 23:59 23:59 Intake Total 2612.5 / 3112.5 3865.2 / 3865.2 Output Total 800 / 1600 1700 / 2000 900 / 900 Balance 1812.5 / 1512.5 2165.2 / 1865.2 -900 / -900 Lab / Micro Data 12/09/22 06:35 12/07/22 05:45 Labs: Laboratory Results - last 24 hr 12/09/22 06:35: WBC 7.1, RBC 3.61 L, Hgb 10.4 L, Hct 33.1 L, MCV 91.7, MCH 28.8, MCHC 31.4 L, RDW Std Deviation 48.2 H, RDW Coeff of Dayan 14.4, Plt Count 249, MPV 10.2, Immature Gran % (Auto) 1.800 H, Neut % (Auto) 69.4, Lymph % (Auto) 13.5 L, [place] % (Auto) 8.8, Eos % (Auto) 5.9 H, Baso % (Auto) 0.6, Absolute Neuts (auto) 5.0, Absolute Lymphs (auto) 0.96, Nucleated RBC % 0, PT 14.3, INR 1.1, APTT 35.2 12/09/22 06:40: POC Glucose 134 H 12/09/22 11:33: POC Glucose 127 H 12/09/22 18:54: POC Glucose 139 H 12/10/22 00:13: POC Glucose 211 H Physical Exam GI GI Narrative: Abdomen is tender and distended and quiet Assessment & Plan Assessment/Plan (1) Partial small bowel obstruction: PLAN: We will allow him to have morphine in order to calm the discomfort. He will continue to mobilize. Lovenox been restarted today. We will now need to wait for the ileus to resolve. Twin Fragoso M.D., F.A.C.S.
[2022-12-10 06:54] LABS: Bedside Glucose 148 mg/dL (74-106)
[2022-12-10 07:24] LABS: Absolute Lymphocyte Count 1.17 X10^3/uL (0.83-4.51); Absolute Neutrophil Count 8.7 X10^3/uL (2.0-7.7); Basophil# 0.02 X10^3/uL; Basophil% 0.2 % (0-1); Eosinophil# 0.07 X10^3/uL; Eosinophils% 0.6 % (0-5); Hematocrit 35.7 % (40-54); Hemoglobin 11.4 g/dL (13.0-16.5); Lymphocyte # 1.17 X10^3/ul (0.83-4.51); Lymphocyte % 10.6 % (19-41); Mean Corp Hgb Conc 31.9 g/dL (32-36); Mean Corpuscular Volume 90.8 fL (80-94); Mean Platelet Vol. 10.1 fl (6.2-12.0); Monocyte# 0.97 X10^3/uL; Monocyte% 8.8 % (0-10); NRBC Flagged by Analyzer 0 % (0-5); Neutrophil # 8.67 X10^3/uL (2.7-7.7); Neutrophil % 78.4 % (47-70); Platelet Count 292 K/mm3 (150-450); RBC Distribution Width CV 14.3 % (11.6-14.6); RBC Distribution Width SD 47.8 fl (35.1-43.9); Red Blood Count 3.93 M/mm3 (4.6-6.2); White Blood Count 11.1 K/mm3 (4.4-11.0)
[2022-12-10 07:44] VITALS: BP 151/75; PULSE 72; RESP 16; TEMP 37.2; O2SAT 94
[2022-12-10 07:58] LABS: Anion Gap 7 (5-15); BUN 35 mg/dL (7-18); BUN/Creat Ratio 34.3 RATIO (10-20); Calcium,Total 9.2 mg/dL (8.5-10.1); Chloride 110 mmol/L (98-107); Creatinine, Serum 1.02 mg/dL (0.70-1.30); EST Glomerular Filtration Rate 73 mL/min (>60); Est Glom Filt Rate - Afr Amer 89 mL/min (>60); Glucose 166 mg/dL (74-106); Potassium 4.5 mmol/L (3.5-5.1); Sodium Level 139 mmol/L (136-145)
[2022-12-10] MEDS: Lisinopril 10 MG Tablet PO (09:21)
[2022-12-10] MEDS: Allopurinol 300 MG Tablet PO (09:29)
[2022-12-10] MEDS: Finasteride 5 MG Tablet PO (09:29)
[2022-12-10 10:28] LABS: Magnesium 1.9 mg/dL (1.6-2.6); Phosphorus 2.5 mg/dL (2.5-4.9); Triglycerides 92 mg/dL
--- NOTE | 2022-12-10 12:25 | DS.PCM_ITS ---
Providers Date of Admission: 12/02/22 Primary Care Physician: Dr. Tim Yost MD Reason For Visit: PARTIAL SMALL BOWEL OBSTRUCTION 2ND TO INT HERNIA Diagnosis Discharge Diagnosis (1) Partial small bowel obstruction: Status: Acute Code(s): K56.600 - Partial intestinal obstruction, unspecified as to cause Plan: Reviewed patient with Dr. Fragoso NG tube was inserted this morning with 400 cc of bilious material output Plan to leave NG tube to suction for 6 hours after insertion and obtain a small bowel follow-through around noon If patient's status declines, he may need to return to the OR We will continue to closely monitor this patient Medications at Discharge Home Medications celecoxib 200 mg capsule 200 mg PO DAILY pain 09/03/17 tamsulosin 0.4 mg capsule 0.4 mg PO DAILY prostate 09/03/17 allopurinol 300 mg tablet 300 mg PO DAILY pain 12/05/19 aspirin 81 mg tablet,delayed release 81 mg PO DAILY heart health 12/05/19 calcium carbonate 500 mg calcium (1,250 mg) tablet 500 mg PO DAILY supplement 12/05/19 lisinopril 10 mg tablet 20 mg PO DAILY hypertension 12/05/19 multivitamin 1 tab PO DAILY supplement 12/05/19 omega-3 fatty acids 1,000 mg capsule (Fish Oil Concentrate) 1,000 mg PO DAILY supplement 12/05/19 acetaminophen 500 mg tablet 500 - 1,000 mg PO Q6H PRN PRN Pain Or Fever 12/14/19 finasteride 5 mg tablet (Proscar) 5 mg PO DAILY prostate 04/15/21 glucosamine 750 mg-chondroit 100 mg-msm-D3 25 zng-baeu-ojs bor tablet 1 tab PO DAILY supplement 04/15/21 exmfytnrcf-ibyrwmzyl-cpokkkx 30 mg-1 mg-20 mcg/mL intracavernosal soln 1 ml intra-cavernosal DAILY PRN nasal congestion 04/15/21 ondansetron 4 mg disintegrating tablet 4 mg PO Q6H 2 days #8 tabs 12/16/22 pantoprazole 40 mg tablet,delayed release (Protonix) 40 mg PO DAILY #30 tabs 12/16/22 Hospital Course Operations - (Exploratory laparoscopy with incidental appendectomy and lysis of ileal fat pad adhesion on 12/01; Exploratory laparotomy with lysis of adhesions and ileal enterectomy with jgdm-ys-sdji anastomosis on 12/09) Summary of Care Provided Minutes Spent on Discharge: 45 Hospital Course: Patient is an 87 y/o M who was directly admitted to the hospital from the office after failing outpatient treatment for small bowel obstruction. Dr. Fragoso performed an Exploratory laparoscopy with incidental appendectomy and lysis of ileal fat pad adhesion on 12/01/22. Patient tolerated the procedure well. Patient's hospital course was complicated by abdominal distention and nausea. Patient had an NG tube placed following not being able to pass flatus. Patient had a small bowel follow-through which demonstrated delayed transit time through the small bowel consistent with small bowel obstruction. Patient's hos pitalization was slow and patient did not progress. Dr. Fragoso took the patient back to surgery and performed an Exploratory laparotomy with lysis of adhesions and ileal enterectomy with ygla-xg-gros anastomosis on 12/09. Patient was placed on TPN and continued to have an ileus post-operatively. on 12/13, patient was able to pass flatus. NG tube was removed and clear liquids were started. Patient was able to eventually tolerate clears liquids and started to have loose stools. Upon discharge, patient was able to tolerate full liquids with scrambled eggs. Patient will be sent home on TPN x 7 days and full liquid diet. Patient is to continue this regimen until follow-up early next week with Dr. Fragoso. Patient had no abdominal pain at the time of discharge. He denies nausea. Weight / BMI Weight Weight: 194 lb 7.163 oz Body Mass Index (BMI) 26.3 ABG / Lab / Microbiology Data 12/15/22 06:40 12/15/22 06:40 Laboratory: Laboratory Results - last 24 hr 12/09/22 18:54: POC Glucose 139 H 12/10/22 00:13: POC Glucose 211 H 12/10/22 06:36: POC Glucose 148 H 12/10/22 07:15: WBC 11.1 H, RBC 3.93 L, Hgb 11.4 L, Hct 35.7 L, MCV 90.8, MCH 29.0, MCHC 31.9 L, RDW Std Deviation 47.8 H, RDW Coeff of Dayan 14.3, Plt Count 292, MPV 10.1, Immature Gran % (Auto) 1.400 H, Neut % (Auto) 78.4 H, Lymph % (Auto) 10.6 L, [place] % (Auto) 8.8, Eos % (Auto) 0.6, Baso % (Auto) 0.2, Absolute Neuts (auto) 8.7 H, Absolute Lymphs (auto) 1.17, Nucleated RBC % 0, Sodium 139, Potassium 4.5, Chloride 110 H, Carbon Dioxide 22.0, Anion Gap 7, BUN 35 H, Creatinine 1.02, Estim Creat Clear Calc 56.00, Est GFR (MDRD) Af Amer 89, Est GFR (MDRD) Non-Af 73, BUN/Creatinine Ratio 34.3 H, Glucose 166 H, Calcium 9.2, Phosphorus 2.5, Magnesium 1.9, Triglycerides 92 D/C Instructions Discharge Diet: Light diet - advance as tolerated (if you have questions about your diet instructions, please talk to you doctor.) May shower in (days): 1 Call your doctor if your incision/area has: Continuous Slow Oozing, Sudden Increased Bleeding, Increased Pain/ Swelling, Increased Redness and Foul Smelling Discharge Call your doctor if you observe: Fever of 101 or Higher Suture Line Care: Avoid Pulling/Pushing and Avoid Pinching/Bending Additional Dressing/Incision Instructions: Change or remove dressing in 4 days. Leave steri-strips in place for 1 week. Please Follow Up With: Twin Fragoso MD When: Call [phone] to make an appointment to be seen in about 10 days. Meaningful Use Info Meaningful Use Diagnoses (Choose all that apply): None applicable Discharge Plan Admission Admit Date/Time: 12/02/22 14:55 Primary Reason for Your Visit: Partial small bowel obstruction Attending Provider: Twin Fragoso Primary Care Provider: Tim Yost Instructions Additional Instructions / Restrictions: Recommend full liquid diet, low fiber. You will be having 7 days of TPN starting possibly Thursday You will need to call our office for an appointment with Dr. Fragoso on Thursday or Thursday of next week. Continue to keep hydrated. I would recommend taking the large jug from the hospital and filling that 3 times a day. You will be provided Protonix to be taken daily You will also be provided Zofran as needed for nausea every 6 hours Call our office at [phone] if you have any questions or concerns Discharge Orders/Prescriptions Prescriptions: New ondansetron 4 mg tablet,disintegrating 4 mg PO Q6H 2 Days Qty: 8 0RF pantoprazole [Protonix] 40 mg tablet,delayed release (DR/EC) 40 mg PO DAILY Qty: 30 2RF Continued aspirin 81 mg tablet,delayed release (DR/EC) 81 mg PO DAILY allopurinol 300 mg tablet 300 mg PO DAILY uvucc-jvyfdwmky-rdzhvus-water 30 mg-1 mg- 20 mcg/mL solution 1 ml intra-cavernosal DAILY PRN (Reason: nasal congestion) finasteride [Proscar] 5 mg tablet 5 mg PO DAILY tamsulosin 0.4 MG capsule 0.4 mg PO DAILY lisinopril 10 mg tablet 20 mg PO DAILY acetaminophen 500 MG tablet 500 - 1,000 mg PO Q6H PRN PRN (Reason: Pain Or Fever) Held calcium carbonate 500 mg calcium (1,250 mg) tablet 500 mg PO DAILY Hold Instructions: Resume on 12/26/22. omega-3 fatty acids [Fish Oil Concentrate] 1,000 mg capsule 1,000 mg PO DAILY Hold Instructions: Resume on 12/26/22. multivitamin Tablet 1 tab PO DAILY Hold Instructions: Resume on 12/26/22. fxcj-ixtia-wac-D3-hyal-betito bor 750 mg-100 mg- 25 mcg tablet 1 tab PO DAILY Hold Instructions: Resume on 12/26/22. celecoxib 200 MG capsule 200 mg PO DAILY Hold Instructions: Resume on 12/26/22. Discontinued tadalafil 20 mg tablet 20 mg PO DAILY PRN (Reason: ed) Hold Instructions: pt no longer taking Rx Instructions: administer approximately 30min before sexual activity; do not use more than 1 dose per 24hrs famotidine 20 mg tablet 20 mg PO DAILY PRN (Reason: as needed for stomach pain) Referrals / Follow Up: Twin Fragoso MD [Med Staff - Active Staff] - (Please contact our office to follow-up on Thursday or Thursday of next week with Dr. Fragoso. ) Tim Yost MD [Primary Care Provider] - Disposition Disposition (needs filled in before D/C Order can be placed): Home, Self Care Charges/Coding Visit Charges Inpatient E&M: 18273 Disch Hosp (Post-op; no charge)
[2022-12-10 13:34] VITALS: BP 131/71; PULSE 86; RESP 16; TEMP 37.3; O2SAT 96
[2022-12-10 14:15] LABS: Bedside Glucose 152 mg/dL (74-106)
[2022-12-10] MEDS: Fat Emulsions 20% 250 ML IV (16:24)
[2022-12-10] MEDS: TPN - Clinimix E 8%-14% Soln 2,000 ML with Multivitamins 10 ML, Trace Elements 1 ML, Fo... 84 ML IV (16:24)
[2022-12-10 18:35] LABS: Bedside Glucose 140 mg/dL (74-106)
--- NOTE | 2022-12-10 20:29 | NURSING ---
Encouraged pt to walk in the serrato. Pt states he will walk in the serrato tomorrow. Talked with pt about the benefits of walking. Pt walked 2 full laps in the serrato. tolerated well.
[2022-12-10 20:51] VITALS: BP 135/68; PULSE 78; RESP 18; TEMP 36.8; O2SAT 96
[2022-12-10] MEDS: Tamsulosin HCl 0.4 MG Capsule PO (20:59)
[2022-12-10] MEDS: Ondansetron 4 MG/2 ML Vial IV (21:11)
[2022-12-10 22:29] VITALS: BMI 25.7
[2022-12-11 00:50] LABS: Bedside Glucose 183 mg/dL (74-106)
[2022-12-11 03:40] VITALS: BP 134/67; PULSE 62; RESP 20; TEMP 36.7; O2SAT 97
[2022-12-11 04:13] VITALS: BMI 25.6
--- NOTE | 2022-12-11 04:15 | NURSING ---
pt walked 3 laps in the serrato. tolerated well.
[2022-12-11 06:57] LABS: Bedside Glucose 166 mg/dL (74-106)
[2022-12-11 07:10] LABS: Phosphorus 2.7 mg/dL (2.5-4.9)
--- NOTE | 2022-12-11 07:52 | PN.SURG_ITS ---
Subjective Subjective Patient reports he passed a minimal amount of flatus. He denies abdominal pain or nausea. Objective Data Objective Data Vital Signs: Vital Signs Temp Pulse Resp BP Pulse Ox O2 Del Method O2 Flow Rate 98.1 F 62 20 H 134/67 H 97 Room Air 2 12/11/22 03:40 12/11/22 03:40 12/11/22 03:40 12/11/22 03:40 12/11/22 03:40 12/11/22 03:40 12/06/22 22:30 Oxygen Flow Rate (L/min) 2 Oxygen Delivery Method Room Air Weight: 188 lb 14.978 oz Body Mass Index (BMI) 25.6 Intake & Output: Intake and Output for Last 24 Hours 12/09/22 12/10/22 12/11/22 23:59 23:59 23:59 Intake Total 3865.2 / 3865.2 2185 / 2185 250 / 250 Output Total 1700 / 2000 1400 / 1400 600 / 600 Balance 2165.2 / 1865.2 785 / 785 -350 / -350 Lab / Micro Data 12/10/22 07:15 12/10/22 07:15 Labs: Laboratory Results - last 24 hr 12/10/22 07:15: Sodium 139, Potassium 4.5, Chloride 110 H, Carbon Dioxide 22.0, Anion Gap 7, BUN 35 H, Creatinine 1.02, Estim Creat Clear Calc 56.00, Est GFR (MDRD) Af Amer 89, Est GFR (MDRD) Non-Af 73, BUN/Creatinine Ratio 34.3 H, Glucose 166 H, Calcium 9.2, Phosphorus 2.5, Magnesium 1.9, Triglycerides 92 12/10/22 13:56: POC Glucose 152 H 12/10/22 18:14: POC Glucose 140 H 12/11/22 00:31: POC Glucose 183 H 12/11/22 06:20: Phosphorus 2.7, Magnesium 2.0 12/11/22 06:34: POC Glucose 166 H Physical Exam Const oriented x3 and no apparent distress Resp normal respiratory effort GI soft to palpation and non-tender Assessment & Plan Assessment/Plan (1) Partial small bowel obstruction: PLAN: She reports that he is having minimal flatus. His nurse reports he is requiring less pain medication. Continue to encourage ambulation and await more significant bowel function before starting a diet and stopping TPN. Luis Terry MD Pager: [facility] [address] [place] [address], [address] [place] [address] Office:
[2022-12-11 10:10] VITALS: BP 132/58; PULSE 72; RESP 16; TEMP 37.2; O2SAT 96
[2022-12-11] MEDS: oxyCODONE 5 MG Tablet PO ×2 (10:14→18:38)
[2022-12-11] MEDS: Lisinopril 10 MG Tablet PO (10:14)
[2022-12-11] MEDS: Allopurinol 300 MG Tablet PO (10:15)
[2022-12-11] MEDS: Finasteride 5 MG Tablet PO (10:15)
[2022-12-11 13:30] LABS: Bedside Glucose 159 mg/dL (74-106)
[2022-12-11 15:17] VITALS: BP 116/56; PULSE 68; RESP 16; TEMP 37.3; O2SAT 95
[2022-12-11] MEDS: TPN - Clinimix E 8%-14% Soln 2,000 ML with Multivitamins 10 ML, Trace Elements 1 ML, Fo... 84 ML IV (16:18)
[2022-12-11] MEDS: Famotidine 20 MG Tablet PO (18:38)
[2022-12-11] MEDS: 0.9% Saline Lock 10 ML Syringe IV (18:45)
[2022-12-11] MEDS: Ondansetron 4 MG/2 ML Vial IV (18:45)
[2022-12-11 19:35] LABS: Bedside Glucose 157 mg/dL (74-106)
[2022-12-11 20:32] VITALS: BP 113/48; PULSE 69; RESP 16; TEMP 37.1; O2SAT 94
[2022-12-11] MEDS: Tamsulosin HCl 0.4 MG Capsule PO (21:13)
[2022-12-11 23:45] LABS: Bedside Glucose 169 mg/dL (74-106)
[2022-12-12 02:35] VITALS: BP 132/53; PULSE 65; RESP 16; TEMP 37.1; O2SAT 98
[2022-12-12 06:00] VITALS: BMI 23.9
[2022-12-12 06:55] LABS: Absolute Lymphocyte Count 1.15 X10^3/uL (0.83-4.51); Absolute Neutrophil Count 6.2 X10^3/uL (2.0-7.7); Basophil# 0.04 X10^3/uL; Basophil% 0.5 % (0-1); Eosinophil# 0.34 X10^3/uL; Eosinophils% 3.9 % (0-5); Hematocrit 33.4 % (40-54); Hemoglobin 10.3 g/dL (13.0-16.5); Lymphocyte # 1.15 X10^3/ul (0.83-4.51); Lymphocyte % 13.3 % (19-41); Mean Corp Hgb Conc 30.8 g/dL (32-36); Mean Corpuscular Hgb 28.7 pg (27.0-32.0); Mean Platelet Vol. 10.4 fl (6.2-12.0); Monocyte# 0.85 X10^3/uL; Monocyte% 9.8 % (0-10); NRBC Flagged by Analyzer 0 % (0-5); Neutrophil # 6.15 X10^3/uL (2.7-7.7); Neutrophil % 70.9 % (47-70); Platelet Count 330 K/mm3 (150-450); RBC Distribution Width CV 14.7 % (11.6-14.6); Red Blood Count 3.59 M/mm3 (4.6-6.2); White Blood Count 8.7 K/mm3 (4.4-11.0)
[2022-12-12 07:22] LABS: Anion Gap 3 (5-15); BUN 42 mg/dL (7-18); BUN/Creat Ratio 41.6 RATIO (10-20); Calcium,Total 9.7 mg/dL (8.5-10.1); Chloride 112 mmol/L (98-107); Creatinine, Serum 1.01 mg/dL (0.70-1.30); EST Glomerular Filtration Rate 74 mL/min (>60); Est Glom Filt Rate - Afr Amer 90 mL/min (>60); Estimated Creatinine Clearance 56.56 ml/min; Glucose 142 mg/dL (74-106); Magnesium 2.2 mg/dL (1.6-2.6); Phosphorus 3.3 mg/dL (2.5-4.9); Potassium 4.4 mmol/L (3.5-5.1); Sodium Level 137 mmol/L (136-145)
[2022-12-12 08:00] VITALS: BMI 25.3
--- NOTE | 2022-12-12 08:23 | PN.SURG_ITS ---
Subjective Subjective Patient reports he is still not passing any flatus. He did have some nausea medicine this morning. His abdomen is soft and he does report some mild pain. Objective Data Objective Data Vital Signs: Vital Signs Temp Pulse Resp BP Pulse Ox O2 Del Method O2 Flow Rate 98.7 F 65 16 132/53 H 98 Room Air 2 12/12/22 02:35 12/12/22 02:35 12/12/22 02:35 12/12/22 02:35 12/12/22 02:35 12/12/22 02:35 12/06/22 22:30 Oxygen Flow Rate (L/min) 2 Oxygen Delivery Method Room Air Weight: 176 lb 12.972 oz Body Mass Index (BMI) 23.9 Intake & Output: Intake and Output for Last 24 Hours 12/10/22 12/11/22 12/12/22 23:59 23:59 23:59 Intake Total 2185 / 2185 2265.2 / 2265.2 Output Total 1400 / 1400 925 / 925 Balance 785 / 785 1340.2 / 1340.2 Lab / Micro Data 12/12/22 06:35 12/12/22 06:35 Labs: Laboratory Results - last 24 hr 12/11/22 13:12: POC Glucose 159 H 12/11/22 19:17: POC Glucose 157 H 12/11/22 23:27: POC Glucose 169 H 12/12/22 06:35: WBC 8.7, RBC 3.59 L, Hgb 10.3 L, Hct 33.4 L, MCV 93.0, MCH 28.7, MCHC 30.8 L, RDW Std Deviation 51.0 H, RDW Coeff of Dayan 14.7 H, Plt Count 330, MPV 10.4, Immature Gran % (Auto) 1.600 H, Neut % (Auto) 70.9 H, Lymph % (Auto) 13.3 L, [place] % (Auto) 9.8, Eos % (Auto) 3.9, Baso % (Auto) 0.5, Absolute Neuts (auto) 6.2, Absolute Lymphs (auto) 1.15, Nucleated RBC % 0, Sodium 137, Potassium 4.4, Chloride 112 H, Carbon Dioxide 22.0, Anion Gap 3 L, BUN 42 H, Creatinine 1.01, Estim Creat Clear Calc 56.56, Est GFR (MDRD) Af Amer 90, Est GFR (MDRD) Non-Af 74, BUN/Creatinine Ratio 41.6 H, Glucose 142 H, Calcium 9.7, Phosphorus 3.3, Magnesium 2.2 Physical Exam Const oriented x3 and no apparent distress Resp normal respiratory effort Cardio regular rate and regular rhythm GI soft to palpation Palpation: tender Assessment & Plan Assessment/Plan (1) Partial small bowel obstruction: PLAN: Patient does have a less distended abdomen this morning. He is still photographer to palpation in all 4 quadrants but this is mild. He says he is not passing any flatus and did require some nausea medicine. I will wait till this afternoon to recheck the patient and possibly start clears later today. Luis Terry MD Pager: [facility] [address] [place] [address], [address] [place] [phone] Office:
[2022-12-12] MEDS: Finasteride 5 MG Tablet PO (08:54)
[2022-12-12] MEDS: Lisinopril 10 MG Tablet PO (08:54)
[2022-12-12] MEDS: Allopurinol 300 MG Tablet PO (08:55)
[2022-12-12] MEDS: Acetaminophen 500 MG Tablet PO ×3 (09:00→22:19)
[2022-12-12] MEDS: Famotidine 20 MG Tablet PO (09:00)
[2022-12-12 09:20] VITALS: BP 130/63; PULSE 66; RESP 18; TEMP 36.7
--- NOTE | 2022-12-12 11:35 | CASEMGMT ---
SHORTY MORENO NOTE: RN CM to room. Pt resting in bed. Introduced self and role. Pt has been ambulating in room and halls ad quan. Pt denies having any discharge planning needs or concerns. Pt made aware CM will be available for any d/c needs that may arise. He voices appreciation. Dave SAHUN SHORTY CM
[2022-12-12 12:10] LABS: Bedside Glucose 149 mg/dL (74-106)
[2022-12-12] MEDS: 0.9% Saline Lock 10 ML Syringe IV (12:20)
[2022-12-12 12:44] LABS: Bedside Glucose 150 mg/dL (74-106)
[2022-12-12 14:00] VITALS: BP 117/53; PULSE 69; RESP 18; TEMP 36.6; O2SAT 97
[2022-12-12] MEDS: TPN - Clinimix E 8%-14% Soln 2,000 ML with Multivitamins 10 ML, Trace Elements 1 ML, Fo... 84 ML IV (16:02)
[2022-12-12] MEDS: Fat Emulsions 20% 250 ML IV (17:33)
[2022-12-12 18:01] LABS: Bedside Glucose 156 mg/dL (74-106)
[2022-12-12] MEDS: Tamsulosin HCl 0.4 MG Capsule PO (21:30)
[2022-12-12 21:32] VITALS: BP 151/52; PULSE 55; RESP 16; TEMP 36.8; O2SAT 98
[2022-12-13 06:00] VITALS: BMI 25.2
--- NOTE | 2022-12-13 06:00 | RAD_ITS ---
EXAM: XR ABDOMEN, 2 VIEWS CLINICAL INDICATION: ileus TECHNIQUE: Frontal view of the abdomen/pelvis with upright view of the abdomen. COMPARISON: No relevant prior studies available. FINDINGS: INTRAPERITONEAL SPACE: Question of free air below the right hemidiaphragm. Recommend left lateral decubitus view of the abdomen for further evaluation. GASTROINTESTINAL TRACT: Increasing gaseous distention of the small bowel which may represent residual or recurrent small bowel obstruction. ORGANS: Unremarkable as visualized. No organomegaly. No abnormal calcifications. BONES/JOINTS: No acute abnormality. SOFT TISSUES: No acute pathology. RAD/Abd Decub and/or Erect(Portabl IMPRESSION: 1. Question pneumoperitoneum. Recommend follow-up left lateral decubitus view of the abdomen. 2. Increasing small bowel distention. Electronically Signed: Yasir Yates MD at 7:18 EDT ,
[2022-12-13] MEDS: Acetaminophen 500 MG Tablet PO ×3 (06:03→22:15)
[2022-12-13 06:35] LABS: Absolute Lymphocyte Count 0.88 X10^3/uL (0.83-4.51); Absolute Neutrophil Count 7.4 X10^3/uL (2.0-7.7); Basophil# 0.04 X10^3/uL; Basophil% 0.4 % (0-1); Eosinophil# 0.36 X10^3/uL; Eosinophils% 3.8 % (0-5); Hematocrit 30.4 % (40-54); Hemoglobin 9.6 g/dL (13.0-16.5); Lymphocyte # 0.88 X10^3/ul (0.83-4.51); Lymphocyte % 9.2 % (19-41); Mean Corp Hgb Conc 31.6 g/dL (32-36); Mean Corpuscular Hgb 28.7 pg (27.0-32.0); Mean Corpuscular Volume 90.7 fL (80-94); Mean Platelet Vol. 10.6 fl (6.2-12.0); Monocyte# 0.74 X10^3/uL; Monocyte% 7.7 % (0-10); NRBC Flagged by Analyzer 0 % (0-5); Neutrophil % 77.1 % (47-70); Platelet Count 339 K/mm3 (150-450); RBC Distribution Width CV 14.6 % (11.6-14.6); RBC Distribution Width SD 48.7 fl (35.1-43.9); Red Blood Count 3.35 M/mm3 (4.6-6.2); White Blood Count 9.6 K/mm3 (4.4-11.0)
[2022-12-13 07:12] LABS: Anion Gap 5 (5-15); BUN 40 mg/dL (7-18); BUN/Creat Ratio 49.6 RATIO (10-20); Calcium,Total 9.3 mg/dL (8.5-10.1); Chloride 115 mmol/L (98-107); Creatinine, Serum 0.81 mg/dL (0.70-1.30); EST Glomerular Filtration Rate 96 mL/min (>60); Est Glom Filt Rate - Afr Amer 117 mL/min (>60); Estimated Creatinine Clearance 70.52 ml/min; Glucose 146 mg/dL (74-106); Potassium 4.2 mmol/L (3.5-5.1); Sodium Level 138 mmol/L (136-145)
--- NOTE | 2022-12-13 08:12 | PCM.PN.SRG ---
Subjective Subjective Patient is still reporting that he is not passing any flatus. He denies nausea. He says he is feeling a lot of pressure in his abdomen. Objective Data Objective Data Vital Signs: Vital Signs Temp Pulse Resp BP Pulse Ox O2 Del Method O2 Flow Rate 98.2 F 55 L 16 151/52 H 98 Room Air 2 12/12/22 21:32 12/12/22 21:32 12/12/22 21:32 12/12/22 21:32 12/12/22 21:32 12/12/22 21:32 12/06/22 22:30 Oxygen Flow Rate (L/min) 2 Oxygen Delivery Method Room Air Weight: 186 lb 3.2 oz Body Mass Index (BMI) 25.2 Intake & Output: Intake and Output for Last 24 Hours 12/11/22 12/12/22 12/13/22 23:59 23:59 23:59 Intake Total 2265.2 / 2265.2 3242.6 / 3242.6 243.25 / 243.25 Output Total 925 / 925 Balance 1340.2 / 1340.2 3242.6 / 3242.6 243.25 / 243.25 Lab / Micro Data 12/13/22 06:00 12/13/22 06:00 Labs: Laboratory Results - last 24 hr 12/12/22 05:52: POC Glucose 149 H 12/12/22 12:20: POC Glucose 150 H 12/12/22 17:43: POC Glucose 156 H 12/13/22 06:00: WBC 9.6, RBC 3.35 L, Hgb 9.6 L, Hct 30.4 L, MCV 90.7, MCH 28.7, MCHC 31.6 L, RDW Std Deviation 48.7 H, RDW Coeff of Dayan 14.6, Plt Count 339, MPV 10.6, Immature Gran % (Auto) 1.800 H, Neut % (Auto) 77.1 H, Lymph % (Auto) 9.2 L, [place] % (Auto) 7.7, Eos % (Auto) 3.8, Baso % (Auto) 0.4, Absolute Neuts (auto) 7.4, Absolute Lymphs (auto) 0.88, Nucleated RBC % 0, Sodium 138, Potassium 4.2, Chloride 115 H, Carbon Dioxide 18.0 L, Anion Gap 5, BUN 40 H, Creatinine 0.81, Estim Creat Clear Calc 70.52, Est GFR (MDRD) Af Amer 117, Est GFR (MDRD) Non-Af 96, BUN/Creatinine Ratio 49.6 H, Glucose 146 H, Calcium 9.3, Phosphorus 3.0, Magnesium 2.0 Physical Exam Const oriented x3 Resp normal respiratory effort GI soft to palpation Palpation: tender Assessment & Plan Assessment/Plan (1) Partial small bowel obstruction: PLAN: I performed a KUB today. It has not been officially read but it appears nonspecific. There is definitely gas in the colon. I will try Dulcolax suppository to see if that stimulates the bowel at all. Continue TPN. Encourage ambulation. Luis Terry MD Pager: [facility] [address] [place] [address], [address] [place] [phone] Office:
[2022-12-13 08:30] VITALS: BP 132/63; PULSE 56; RESP 18; TEMP 36.7; O2SAT 98
[2022-12-13] MEDS: Lisinopril 10 MG Tablet PO (10:10)
[2022-12-13] MEDS: Allopurinol 300 MG Tablet PO (10:10)
[2022-12-13] MEDS: Finasteride 5 MG Tablet PO (10:10)
[2022-12-13] MEDS: Enoxaparin 40 MG/0.4 ML Syringe SC (10:10)
[2022-12-13] MEDS: Bisacodyl 10 MG Suppository RC (10:10)
[2022-12-13] MEDS: TPN - Clinimix E 8%-14% Soln 2,000 ML with Multivitamins 10 ML, Trace Elements 1 ML, Fo... 84 ML IV (16:03)
[2022-12-13 16:08] VITALS: BP 125/56; PULSE 57; RESP 18; TEMP 36.7; O2SAT 98
[2022-12-13 18:17] LABS: Bedside Glucose 129 mg/dL (74-106)
[2022-12-13 21:20] LABS: Bedside Glucose 154 mg/dL (74-106)
[2022-12-13 22:04] VITALS: BP 137/58; PULSE 71; RESP 18; TEMP 36.8; O2SAT 94
[2022-12-13] MEDS: Tamsulosin HCl 0.4 MG Capsule PO (22:13)
[2022-12-13 22:36] LABS: Bedside Glucose 142 mg/dL (74-106)
[2022-12-14 04:15] VITALS: BP 142/68; PULSE 73; RESP 16; TEMP 36.7; O2SAT 95
[2022-12-14 06:00] VITALS: BMI 24.3
[2022-12-14] MEDS: Acetaminophen 500 MG Tablet PO ×3 (06:43→22:02)
[2022-12-14 07:10] LABS: Bedside Glucose 153 mg/dL (74-106)
--- NOTE | 2022-12-14 08:53 | PCM.PN.SRG ---
Subjective Subjective Patient tolerated clear liquids and reports he is passing flatus. He still feels that he is having some abdominal pressure. He denies nausea or vomiting Objective Data Objective Data Vital Signs: Vital Signs Temp Pulse Resp BP Pulse Ox O2 Del Method O2 Flow Rate 98.1 F 73 16 142/68 H 95 Room Air 2 12/14/22 04:15 12/14/22 04:15 12/14/22 04:15 12/14/22 04:15 12/14/22 04:15 12/14/22 04:15 12/06/22 22:30 Oxygen Flow Rate (L/min) 2 Oxygen Delivery Method Room Air Weight: 180 lb 1.883 oz Body Mass Index (BMI) 24.3 Intake & Output: Intake and Output for Last 24 Hours 12/12/22 12/13/22 12/14/22 23:59 23:59 23:59 Intake Total 3242.6 / 3242.6 3245.45 / 3245.45 Output Total 1400 / 1400 Balance 3242.6 / 3242.6 1845.45 / 1845.45 Lab / Micro Data 12/13/22 06:00 12/13/22 06:00 Labs: Laboratory Results - last 24 hr 12/13/22 06:02: POC Glucose 154 H 12/13/22 17:54: POC Glucose 129 H 12/13/22 22:12: POC Glucose 142 H 12/14/22 06:37: POC Glucose 153 H Physical Exam Const oriented x3 Resp normal respiratory effort GI soft to palpation Palpation: tender Assessment & Plan Assessment/Plan (1) Partial small bowel obstruction: PLAN: The patient tolerated some clear liquids yesterday. I will advance him to full liquids today. I will renew his TPN. Hope to advance to regular diet tomorrow. Patient is taking it very slowly out of apprehension. His abdomen seems soft and less tender than yesterday. Luis Terry MD Pager: [facility] [address] [place] [address], [address] [place] [phone] Office:
[2022-12-14 09:18] VITALS: BP 136/56; PULSE 56; RESP 18; TEMP 37.1; O2SAT 95
[2022-12-14] MEDS: Enoxaparin 40 MG/0.4 ML Syringe SC (10:55)
[2022-12-14] MEDS: Finasteride 5 MG Tablet PO (10:56)
[2022-12-14] MEDS: Lisinopril 10 MG Tablet PO (10:56)
[2022-12-14] MEDS: Allopurinol 300 MG Tablet PO (10:56)
[2022-12-14 12:07] LABS: Bedside Glucose 146 mg/dL (74-106)
[2022-12-14] MEDS: TPN - Clinimix E 8%-14% Soln 2,000 ML with Multivitamins 10 ML, Trace Elements 1 ML, Fo... 84 ML IV (15:15)
[2022-12-14 16:12] VITALS: BP 136/62; PULSE 59; RESP 18; TEMP 36.6; O2SAT 95
[2022-12-14 20:57] VITALS: BP 138/59; PULSE 62; RESP 18; TEMP 36.7; O2SAT 97
[2022-12-14] MEDS: Tamsulosin HCl 0.4 MG Capsule PO (20:59)
[2022-12-14 22:08] LABS: Bedside Glucose 140 mg/dL (74-106)
[2022-12-14 22:46] LABS: Bedside Glucose 140 mg/dL (74-106)
[2022-12-14] MEDS: Ondansetron 4 MG/2 ML Vial IV (23:42)
[2022-12-14] MEDS: 0.9% Saline Lock 10 ML Syringe IV (23:43)
[2022-12-15 03:00] VITALS: BP 140/67; PULSE 64; RESP 18; TEMP 36.7; O2SAT 94
[2022-12-15 06:00] VITALS: BMI 24.0
--- NOTE | 2022-12-15 06:27 | PCM.PN.SRG ---
Subjective Subjective Finally progress is noted. Patient tolerated full liquids albeit not with gusto. Claims in the middle night last night his sounds like crampy pain. Small amount of stool. Currently complaining of a mid abdominal mild discomfort. He continues to ambulate well. Objective Data Objective Data Vital Signs: Vital Signs Temp Pulse Resp BP Pulse Ox O2 Del Method O2 Flow Rate 98.1 F 64 18 140/67 H 94 Room Air 2 12/15/22 03:00 12/15/22 03:00 12/15/22 03:00 12/15/22 03:00 12/15/22 03:00 12/15/22 03:00 12/06/22 22:30 Oxygen Flow Rate (L/min) 2 Oxygen Delivery Method Room Air Weight: 177 lb 14.609 oz Body Mass Index (BMI) 24.0 Intake & Output: Intake and Output for Last 24 Hours 12/13/22 12/14/22 12/15/22 23:59 23:59 23:59 Intake Total 3242.45 / 3242.45 2905.6 / 3105.6 450 / 450 Output Total 700 / 700 Balance 2542.45 / 2542.45 2905.6 / 3105.6 450 / 450 Lab / Micro Data 12/13/22 06:00 12/13/22 06:00 Labs: Laboratory Results - last 24 hr 12/14/22 06:37: POC Glucose 153 H 12/14/22 11:49: POC Glucose 146 H 12/14/22 17:49: POC Glucose 140 H 12/14/22 22:05: POC Glucose 140 H Physical Exam Resp normal respiratory effort GI GI Narrative: Soft, distended, to the left of the umbilicus slight erythema without line marked. No drainage. Topical dressing removed. Assessment & Plan Assessment/Plan (1) Partial small bowel obstruction: PLAN: Pathology demonstrated a segment of small bowel with ulceration and acute and chronic inflammation and granulation tissue. This was all internally. Etiology completely unclear. Patient once again appears to be making slow progress. We will hold full liquids for the moment. We will plan on stopping TPN after his current bag. Hopefully he can continue to make progress be able to have diet advanced and possible discharge tomorrow. Wound inspection will be pursued. Twin Fragoso M.D., F.A.C.S.
[2022-12-15 06:51] LABS: Bedside Glucose 138 mg/dL (74-106)
[2022-12-15 07:09] LABS: Absolute Lymphocyte Count 1.19 X10^3/uL (0.83-4.51); Absolute Neutrophil Count 5.7 X10^3/uL (2.0-7.7); Basophil# 0.04 X10^3/uL; Basophil% 0.5 % (0-1); Eosinophil# 0.18 X10^3/uL; Eosinophils% 2.2 % (0-5); Hematocrit 30.4 % (40-54); Hemoglobin 9.6 g/dL (13.0-16.5); Lymphocyte # 1.19 X10^3/ul (0.83-4.51); Lymphocyte % 14.8 % (19-41); Mean Corp Hgb Conc 31.6 g/dL (32-36); Mean Corpuscular Hgb 28.8 pg (27.0-32.0); Mean Corpuscular Volume 91.3 fL (80-94); Mean Platelet Vol. 10.2 fl (6.2-12.0); Monocyte# 0.86 X10^3/uL; Monocyte% 10.7 % (0-10); NRBC Flagged by Analyzer 0 % (0-5); Neutrophil # 5.67 X10^3/uL (2.7-7.7); Neutrophil % 70.7 % (47-70); Platelet Count 364 K/mm3 (150-450); RBC Distribution Width CV 14.7 % (11.6-14.6); RBC Distribution Width SD 49.1 fl (35.1-43.9); Red Blood Count 3.33 M/mm3 (4.6-6.2)
[2022-12-15 07:39] LABS: Anion Gap 6 (5-15); BUN 42 mg/dL (7-18); BUN/Creat Ratio 53.3 RATIO (10-20); Calcium,Total 9.7 mg/dL (8.5-10.1); Chloride 114 mmol/L (98-107); Creatinine, Serum 0.79 mg/dL (0.70-1.30); EST Glomerular Filtration Rate 99 mL/min (>60); Est Glom Filt Rate - Afr Amer 120 mL/min (>60); Estimated Creatinine Clearance 57.12 ml/min; Glucose 139 mg/dL (74-106); Magnesium 1.9 mg/dL (1.6-2.6); Phosphorus 2.8 mg/dL (2.5-4.9); Potassium 4.4 mmol/L (3.5-5.1); Sodium Level 138 mmol/L (136-145)
[2022-12-15 08:01] VITALS: BP 151/65; PULSE 58; RESP 18; TEMP 36.7; O2SAT 98
[2022-12-15] MEDS: Finasteride 5 MG Tablet PO (09:18)
[2022-12-15] MEDS: Allopurinol 300 MG Tablet PO (09:18)
[2022-12-15] MEDS: Enoxaparin 40 MG/0.4 ML Syringe SC (09:18)
[2022-12-15] MEDS: Lisinopril 10 MG Tablet PO (09:18)
[2022-12-15] MEDS: Acetaminophen 500 MG Tablet PO ×2 (11:27→22:32)
[2022-12-15 11:47] LABS: Bedside Glucose 132 mg/dL (74-106)
[2022-12-15 13:56] VITALS: BP 123/51; PULSE 60; RESP 18; TEMP 36.7; O2SAT 95
[2022-12-15] MEDS: 0.9% Saline Lock 10 ML Syringe IV ×2 (14:46→22:33)
[2022-12-15 22:20] VITALS: BP 100/56; PULSE 79; RESP 18; TEMP 36.6; O2SAT 98
[2022-12-15] MEDS: Tamsulosin HCl 0.4 MG Capsule PO (22:32)
[2022-12-16] MEDS: 0.9% Saline Lock 10 ML Syringe IV (01:23)
[2022-12-16] MEDS: Ondansetron 4 MG/2 ML Vial IV (01:24)
[2022-12-16 04:19] VITALS: BMI 23.0
[2022-12-16 05:06] VITALS: BP 130/67; PULSE 60; RESP 18; TEMP 36.7; O2SAT 99
[2022-12-16] MEDS: Famotidine 20 MG Tablet PO (05:16)
--- NOTE | 2022-12-16 06:05 | RAD_ITS ---
STUDY: X-RAY - ABDOMEN/PELVIS REASON FOR EXAM: Male, 87 years old. Emesis TECHNIQUE: 4 AP supine and upright views of the abdomen and pelvis. COMPARISON: X-ray of abdomen and pelvis dated December 13, 2022 FINDINGS: Normal visualized lung bases. Multiple dilated small bowel loops with multiple air-fluid levels consistent with small bowel obstruction which appears to be distal and somewhere in the right abdomen. There is no demonstrated free abdominal air. The visualized liver, spleen and kidneys are grossly normal in size and morphology. Normal soft tissue structures. There are diffuse degenerative changes of the visualized lumbar spine. RAD/Abd Inc Decub and/or Erect IMPRESSION: Small bowel obstruction. 1. Multiple dilated small bowel loops with multiple air-fluid levels consistent with small bowel obstruction which appears to be distal and somewhere in the right abdomen. Electronically Signed: Devante Luciano MD at 8:37 EDT ,
--- NOTE | 2022-12-16 06:06 | PN.SURG_ITS ---
Subjective Subjective States increased abdominal soreness. Small emesis last night. Improved with medication. He claims to be passing copious diarrhea and flatus Objective Data Objective Data Vital Signs: Vital Signs Temp Pulse Resp BP Pulse Ox O2 Del Method O2 Flow Rate 98.1 F 60 18 130/67 H 99 Room Air 2 12/16/22 05:06 12/16/22 05:06 12/16/22 05:06 12/16/22 05:06 12/16/22 05:06 12/16/22 05:06 12/06/22 22:30 Oxygen Flow Rate (L/min) 2 Oxygen Delivery Method Room Air Weight: 169 lb 15.622 oz Body Mass Index (BMI) 23.0 Intake & Output: Intake and Output for Last 24 Hours 12/14/22 12/15/22 12/16/22 23:59 23:59 23:59 Intake Total 2905.6 / 3105.6 2625.4 / 2625.4 250 / 250 Balance 2905.6 / 3105.6 2625.4 / 2625.4 250 / 250 Lab / Micro Data 12/15/22 06:40 12/15/22 06:40 Labs: Laboratory Results - last 24 hr 12/15/22 06:11: POC Glucose 138 H 12/15/22 06:40: WBC 8.0, RBC 3.33 L, Hgb 9.6 L, Hct 30.4 L, MCV 91.3, MCH 28.8, MCHC 31.6 L, RDW Std Deviation 49.1 H, RDW Coeff of Dayan 14.7 H, Plt Count 364, MPV 10.2, Immature Gran % (Auto) 1.100 H, Neut % (Auto) 70.7 H, Lymph % (Auto) 14.8 L, [place] % (Auto) 10.7 H, Eos % (Auto) 2.2, Baso % (Auto) 0.5, Absolute Neuts (auto) 5.7, Absolute Lymphs (auto) 1.19, Nucleated RBC % 0, Sodium 138, Potassium 4.4, Chloride 114 H, Carbon Dioxide 18.0 L, Anion Gap 6, BUN 42 H, Creatinine 0.79, Estim Creat Clear Calc 57.12, Est GFR (MDRD) Af Amer 120, Est GFR (MDRD) Non-Af 99, BUN/Creatinine Ratio 53.3 H, Glucose 139 H, Calcium 9.7, Phosphorus 2.8, Magnesium 1.9 12/15/22 11:24: POC Glucose 132 H Radiography Diagnostic Testing: Radiology Impression Abdomen X-Ray 12/13/22 06:00 IMPRESSION: 1. Question pneumoperitoneum. Recommend follow-up left lateral decubitus view of the abdomen. 2. Increasing small bowel distention. Electronically Signed: Yasir Yates MD at 7:18 EDT , Physical Exam GI GI Narrative: No change incisional erythema. Abdomen remains softly distended bowel sounds present there is somewhat grinding in nature. No focal tenderness on exam Assessment & Plan Assessment/Plan (1) Partial small bowel obstruction: PLAN: Patient desiring to go home. He wants an antiemetic to go home on. Although the patient is on famotidine we will provide 1 dose of oral pantopraz ole. We will recheck abdominal x-ray before making a discharge decision. Tiwn Fragoso M.D., F.A.C.S.
[2022-12-16 09:54] VITALS: BP 126/64; PULSE 70; RESP 18; TEMP 36.7; O2SAT 94
[2022-12-16] MEDS: Pantoprazole Sodium 20 MG Tablet PO (10:09)
[2022-12-16] MEDS: Allopurinol 300 MG Tablet PO (10:10)
[2022-12-16] MEDS: Finasteride 5 MG Tablet PO (10:10)
[2022-12-16] MEDS: Enoxaparin 40 MG/0.4 ML Syringe SC (10:10)
[2022-12-16] MEDS: Lisinopril 10 MG Tablet PO (10:10)
[2022-12-16] MEDS: Acetaminophen 500 MG Tablet PO (12:22)
[2022-12-16 14:17] VITALS: BP 119/66; PULSE 58; RESP 18; TEMP 36.3; O2SAT 96
--- NOTE | 2022-12-16 14:57 | CASEMGMT ---
Discharge Planning A list of home healthcare providers including quality and resource use data and consistent with the patient?s preferred geographic region, medical needs, and insurance network were printed and provided from the [employer] Guide. Jillian Coyle, Discharge Planning Asst.
--- NOTE | 2022-12-16 15:00 | CASEMGMT ---
Addendum entered by Gem Peraza 12/16/22 16:44: TPN rx sent to [facility] via careport. Pt given BGM rx by nurse. [facility] unable to accept pt for services. Addendum entered by Gem Peraza 12/16/22 15:52: TC to 's office, spoke to Leela. She is aware pt is agreeable to self pay. She states they plan on dc'ing pt today knowing TPN will not be set up until possibly . She will be over to sign orders. SHORTY MORENO back into pt room, pt and have chosen [facility], [facility] and [facility]. Referral sent via careport to these agencies. Pt and agreeable to [facility] for infusion company. TC to [facility], they are unable to accept pt for services. Original Note: notified SHORTY MORENO that pt will need to dc home on TPN. TC to [facility], earliest this could be delivered would be tomorrow or . For medicare to pay for TPN [place] >90 days. plans for only 7 days. TC back to Emi at [facility] who states cost is $125/day. Charge nurse printed current TPN orders and received email of rx from [facility] for TPN. requested when this information received to call his office. RN CM into pt room, pt and aware of cost of TPN and are agreeable. Pt questioning if BGM will be given. They are aware that HHC will need to be chosen. HHC list created by [facility] Front Desk Clerk provided to pt and . They will review and RN TIFFANIE to check back.
--- NOTE | 2022-12-16 15:35 | PCM.PN.SRG ---
Subjective Subjective Patient is fatigued beyond tolerance. Leela Sewell PA-C and myself both spent extensive time with the patient and his today discussing his progress. Objective Data Objective Data Vital Signs: Vital Signs Temp Pulse Resp BP Pulse Ox O2 Del Method O2 Flow Rate 97.3 F L 58 L 18 119/66 96 Room Air 2 12/16/22 14:17 12/16/22 14:17 12/16/22 14:17 12/16/22 14:17 12/16/22 14:17 12/16/22 14:17 12/06/22 22:30 Oxygen Flow Rate (L/min) 2 Oxygen Delivery Method Room Air Weight: 169 lb 15.622 oz Body Mass Index (BMI) 23.0 Intake & Output: Intake and Output for Last 24 Hours 12/14/22 12/15/22 12/16/22 23:59 23:59 23:59 Intake Total 2905.6 / 3105.6 2625.4 / 2625.4 250 / 250 Balance 2905.6 / 3105.6 2625.4 / 2625.4 250 / 250 Lab / Micro Data 12/15/22 06:40 12/15/22 06:40 Radiography Diagnostic Testing: Radiology Impression Abdomen X-Ray 12/16/22 06:05 IMPRESSION: Small bowel obstruction. 1. Multiple dilated small bowel loops with multiple air-fluid levels consistent with small bowel obstruction which appears to be distal and somewhere in the right abdomen. Electronically Signed: Devante Luciano MD at 8:37 EDT Reading Location ID and State: [facility] / [place] , Service support , Assessment & Plan Assessment/Plan (1) Partial small bowel obstruction: PLAN: The patient is aware that he is still resolving his partial small bowel obstruction. Ongoing hospitalization would be recommended however from a severe chronic anxiety standpoint he can no longer tolerate this. We are therefore arranging for discharge home. We will try to arrange for home TPN acknowledging that it may not be able to get started for a couple days. The patient is aware and the patient is wanting to help participate financially if required. He is sent home basically on a full liquid diet. I am hoping that with a decreased GI intake and more time for resolution that his small bowel will return to normal function. The finding of a ulcer within the small bowel with granulation tissue clearly very abnormal. You will be discharged on a proton pump inhibitor as well as an antiemetic as needed. He will have office follow-up scheduled for next week. Home nursing will be arranged as well. His abdominal incision is doing well at this time. Twin Fragoso M.D., F.A.C.S.
--- NOTE | 2022-12-16 15:50 | CASEMGMT ---
Discharge Planning Referral sent to [facility] via [facility]. Jillian Coyle, Discharge Planning Asst.
--- NOTE | 2022-12-17 11:11 | CASEMGMT ---
SHORTY MORENO Follow-up: Message received via [employer] that the Dietitian at [facility] has questions about the formula ordered. Return call made to Peggy White with [facility] and phone number for SCOTT Coronado provided for [facility] dietitian to review ordered formula. Per Peggy, self pay cost will be dependent on final formula. [facility] and [facility] have declined pt. [facility] and [facility] have not responded. [facility] Planning Assessment following up with these providers for determination of acceptance. Dleilah Nguyen RN CM
--- NOTE | 2022-12-17 12:04 | CASEMGMT ---
Discharge Planning Patient has been accepted by [facility]. was agreeable. Colbert was provided contact information for [facility] to coordinated soc with delivery of products. RN CM notified. Jillian Coyle, Discharge Planning Asst.
== END 2022-12-16 17:35 | disposition home or self-care (01) | DRG 330 ==
LOC: SDC 15:36 → MS3 15:36
PROVIDERS: Anesthesiology; Physician Assistant; Surgery; Admitting Provider Surgery; PCP Internal Medicine; Referring Provider Surgery; Visit Provider Surgery
PROC: 0DBB4ZZ Excision of Ileum, Percutaneous Endoscopic Approach (ICD-10-PCS; CPT 44202; principal; 2022-12-01 12:40)
PROC: 0DBB0ZZ Excision of Ileum, Open Approach (ICD-10-PCS; CPT 49000; principal; 2022-12-09 08:55)
DX: K56.51 Intestinal adhesions [bands], with partial obstruction (principal); K46.0 Unspecified abdominal hernia with obstruction, without gangrene; K63.3 Ulcer of intestine; I10 Essential (primary) hypertension; E78.5 Hyperlipidemia, unspecified; E86.0 Dehydration; R19.7 Diarrhea, unspecified; Z79.82 Long term (current) use of aspirin; Z79.899 Other long term (current) drug therapy
CPT/HCPCS: 36415; 36569; 74018; 74019; 74250; 80048; 80053; 82962; 83735; 84100; 84478; 85025; 85610; 85730; 88302; 88304; 88307; 93005; 97802; 97803; J7040; J7120; A4216; J1940; J2405; J3490

== ENCOUNTER → 2023-03-04 | Outpatient (CLI) | payer MEDICARE, OTHER, SELFPAY ==
--- NOTE | 2023-03-04 10:30 | RAD_ITS ---
STUDY: X-RAY - ABDOMEN/PELVIS REASON FOR EXAM: Male, 87 years old. watery stools/ hx of sbo TECHNIQUE: 4 views COMPARISON: December 16, 2022 FINDINGS: Normal visualized lung bases. There is an unremarkable bowel gas pattern. There is no demonstrated free abdominal air. The visualized liver, spleen and kidneys are grossly normal in size and morphology. Diffuse arterial calcification without evidence for aneurysm. Surgical changes of the left lower quadrant Lumbar spine demonstrates scoliosis and degenerative changes. RAD/Abd Inc Decub and/or Erect IMPRESSION: Nonspecific abdominal series Electronically Signed: Edgardo Galindo MD at 16:50 EDT ,
== END | disposition home or self-care (01) ==
LOC: RAD 10:29
PROVIDERS: PCP Internal Medicine; Referring Provider Physician Assistant; Visit Provider Physician Assistant
DX: R19.7 Diarrhea, unspecified (principal)
CPT/HCPCS: 74019

== ENCOUNTER → 2023-03-05 | Outpatient (CLI) | payer MEDICARE, OTHER, SELFPAY | END | disposition home or self-care (01) | PROVIDERS: PCP Internal Medicine; Referring Provider Physician Assistant; Visit Provider Physician Assistant | DX: R19.7 Diarrhea, unspecified (principal) | CPT/HCPCS: 83630; 87177; 87209; 87493 ==

== ENCOUNTER → 2025-02-15 | Outpatient (CLI) | payer MEDICARE, OTHER, SELFPAY ==
--- NOTE | 2025-02-15 09:40 | VDLE_ITS ---
Reason For Study Reason For Study: Left leg pain RIGHT LEFT CFV is compressible, spontaneous, phasic, competent GSV is normal. and demonstrates normal augmentation. CFV is compressible, spontaneous, phasic, competent, Procedure and demonstrates normal augmentation. This is a venous duplex using B-mode, color flow and FV is compressible, spontaneous, phasic, competent spectral Doppler. and demonstrates normal augmentation. Exam performed in department. POP V is compressible, spontaneous, phasic, competent A preliminary report was called and/or faxed to [facility] and demonstrates normal augmentation. PA. T/P Trunk is compressible. PTV is compressible. LT PerV is compressible. VL/Venous Duplex US, Unilateral Interpretation Summary Deep veins of the left lower extremity are patent and compressible segmentally. There is no evidence of left lower extremity deep vein thrombosis. Valvular competence appears intact within the p roximal deep venous system on the left . The left great saphenous vein appears patent and compressible segmentally. The right common femoral vein is patent and compressible . Ordering Physician: Mckenzie Pierre Referring Physician: Tim Yost M.D. Performed By: Alondra Flores RVT
== END | disposition home or self-care (01) ==
PROVIDERS: PCP Internal Medicine
DX: M79.662 Pain in left lower leg (principal)
CPT/HCPCS: 93971